=== PATIENT | female | born 1940 ===

== ENCOUNTER 2016-10-05 12:48 | Inpatient (IN) | payer MEDICARE ==
--- NOTE | 2016-10-05 13:42 | ED PDOC ---
HPI: General Adult Time Seen by Provider: 10/05/16 13:16 Chief Complaint (Nursing): Abnormal Labs Chief Complaint (Provider): dyspnea History Per: Patient (75 y/o female here for evaluation of abnormal bloodwork. Was noted to have hgb of 5 and sent to ED for evaluation. Patient denies any abdominal pain, hematochezia, melena, vomiting.) Past Medical History Reviewed: Historical Data, Nursing Documentation, Vital Signs Vital Signs: Last Vital Signs Temp 98.6 F 10/05/16 13:05 Pulse 88 10/05/16 13:05 Resp 20 10/05/16 13:05 BP 149/69 10/05/16 13:05 Pulse Ox 100 10/05/16 15:40 - Medical History PMH: Anxiety, Depression, HTN, Hypercholesterolemia - Family History Family History: States: No Known Family Hx - Home Medications Home Medications: Ambulatory Orders Medication Instructions Recorded Calcium Carbonate/Vitamin D3 1 tab PO BID 10/05/16 [Calcium 600-Vit D3 400 Tablet] Clonazepam [Clonazepam] 0.25 mg PO DAILY PRN 10/05/16 DiphenhydrAMINE [Benadryl] 25 mg PO Q6H PRN 10/05/16 Famotidine [Pepcid] 20 mg PO DAILY PRN 10/05/16 Fenofibrate [Tricor] 145 mg PO DAILY 10/05/16 Sertraline [Zoloft] 25 mg PO DAILY 10/05/16 Valsartan [Diovan] 80 mg PO DAILY 10/05/16 - Allergies Allergies/Adverse Reactions: Allergies Allergy/AdvReac Type Severity Reaction Status Date / Time No Known Allergies Allergy Verified 10/05/16 13:05 Review of Systems ROS Statement: Except As Marked, All Systems Reviewed And Found Negative Physical Exam - Reviewed Nursing Documentation Reviewed: Yes Vital Signs Reviewed: Yes - Physical Exam Appears: Positive for: Well, Non-toxic, No Acute Distress Head Exam: Positive for: ATRAUMATIC, NORMAL INSPECTION, NORMOCEPHALIC Skin: Positive for: Normal Color, Warm, Pallor Eye Exam: Positive for: EOMI, Normal appearance, PERRL ENT: Positive for: Normal ENT Inspection Neck: Positive for: Normal, Painless ROM Cardiovascular/Chest: Positive for: Regular Rate, Rhythm Respiratory: Positive for: CNT, Normal Breath Sounds Gastrointestinal/Abdominal: Positive for: Normal Exam, Bowel Sounds, Soft Back: Positive for: Normal Inspection Extremity: Positive for: Normal ROM Neurologic/Psych: Positive for: Alert, Oriented - Laboratory Results Result Diagrams: 10/05/16 13:30 10/05/16 13:30 - ECG ECG: Positive for: Viewed By Me ECG Rhythm: Positive for: Sinus Rhythm ( no ectopy; no acute changes rate of 90bpm) O2 Sat by Pulse Oximetry: 100 - Progress ED Course And Treament: D/W DR. Zenon SWANSON. WILL AWAIT PERIPHERAL SMEAR SPOKE WITH PATHOLOGIST AT 15:14. IMMATURE LYMPHOCYTES NOTED. CALL PLACED TO DR. Zenon SWANSON D/W DR. Zenon SWANSON. PATIENT TO ADMITTED AND RECEIVE [address] SWANSON TO REVIEW PERIPHERAL SMEAR AND DECIDE FURTHER INTERVENTION. CALL PLACED TO DR. TURK. Disposition - Clinical Impression Clinical Impression: Acute lymphocytic leukemia, Anemia - Patient ED Disposition Is Patient to be Admitted: Yes - Disposition Disposition Time: 15:40 Condition: FAIR - Pt Status Changed To: Hospital Disposition Of: Inpatient - Admit Certification Admit to Inpatient:: After my assessment, the patient will require hospitalization for at least two midnights. This is because of the severity of symptoms shown, intensity of services needed, and/or the medical risk in this patient being treated as an outpatient.
[2016-10-05 13:43] LABS: BASO # 0.2 K/uL (0.0-0.2); BASO % 0.4 % (0.0-2.0); EOS # 0.3 K/uL (0.0-0.7); EOS % 0.6 % (0.0-4.0); LYMPH # 32.5 K/uL (1.0-4.3); LYMPH % 79.3 % (20.0-40.0); MEAN CELL VOLUME 60.4 fl (81.0-99.0); MEAN CORPUSCULAR HEMOGLOBIN 15.7 pg (27.0-31.0); MEAN PLATELET VOLUME 8.8 fl (7.2-11.7); MONO % 2.5 % (0.0-10.0); NEUT # 7.1 K/uL (1.8-7.0); NEUT % 17.2 % (50.0-75.0); PLATELET COUNT 177 K/uL (130-400); RED CELL DISTRIBUTION WIDTH 21.9 % (11.5-14.5)
[2016-10-05 13:58] LABS: HEMOGLOBIN 4.5 g/dL (12.0-16.0)
[2016-10-05 13:59] LABS: ALB/GLOB RATIO 1.6 (1.0-2.1); ALBUMIN 4.4 g/dL (3.5-5.0); ALT/SGPT 30 U/L (9-52); AST/SGOT 35 U/L (14-36); BLOOD UREA NITROGEN 15 mg/dl (7-17); CALCIUM 10.3 mg/dL (8.4-10.2); GFR AFRICAN-AMERICAN 53; GFR NON-AFRICAN AMERICAN 44
[2016-10-05 14:03] LABS: PROTHROMBIN TIME 12.8 Seconds (9.8-13.1)
[2016-10-05 14:04] LABS: INR 1.1 (0.9-1.2); PARTIAL THROMBOPLASTIN TIME 19.2 Seconds (25.6-37.1)
[2016-10-05 14:51] LABS: LYMPHOCYTE 76 % (20-50); MONOCYTE 1 % (0-10); NEUTROPHIL 23 % (42-75); PLATELET ESTIMATE NORMAL (NORMAL); TOTAL CELLS COUNTED 100
[2016-10-05 14:52] LABS: ANISOCYTOSIS SLIGHT; HYPOCHROMIC SLIGHT; LARGE PLATELETS PRESENT; OVALOCYTES SLIGHT; POIKILOCYTOSIS SLIGHT; STOMATOCYTES SLIGHT
--- NOTE | 2016-10-05 15:11 | RAD ---
PROCEDURE: CHEST RADIOGRAPH, 1 VIEW HISTORY: sob COMPARISON: None available. FINDINGS: LUNGS: No evidence of focal infiltrate or consolidation in the lungs. PLEURA: No pneumothorax or pleural fluid seen. CARDIOVASCULAR: The cardiac silhouette is mildly enlarged. OSSEOUS STRUCTURES: No significant abnormalities. VISUALIZED UPPER ABDOMEN: Normal. OTHER FINDINGS: None. IMPRESSION: No evidence of acute pulmonary disease. Suboptimal portable study. If indicated further assessment by CT may be obtained.
[2016-10-05 16:23] LABS: IRON 22 ug/dL (37-170)
[2016-10-05 16:32] LABS: % IRON SATURATION 4 % (20-55); TOTAL IRON BINDING CAPACITY 501 ug/dL (250-450)
[2016-10-05 17:01] LABS: FERRITIN 3.3 ng/mL
[2016-10-05 22:28] LABS: FOLATE 7.6 ng/mL
--- NOTE | 2016-10-05 23:05 | CP.PCM.PN ---
Subjective - Date & Time of Evaluation Date of Evaluation: 10/05/16 Time of Evaluation: 23:04 - Subjective Subjective: This is a 75 yrs old female who was sent to the ER with c/o weakness, dizziness and a hgb of 4.5gms. She also had a WBC ount of 41.0 platelets of 177K,, and mcv of 60 . The differential showed a neutrophils 23%, lymph 79%, mono2.5% Peripheral smear was examined by pathologist and by me. there is a definite prominence of lymphocytes, some atypical lymphocytes, and there were also some blasts less than 8%. She gives no h/o ever having anemia or high blood count. She claims she feels well, so she does not visit her primary physician too often , Her last blood count was 2 months ago and she was told that it was normal. There is no h/o bleeding from any site. She does not give a h/o any chronic illness. She does not smoke and soes not drink. Objective - Vital Signs/Intake and Output Vital Signs (last 24 hours): Temp Pulse Resp BP Pulse Ox 98.3 F 86 20 136/61 99 10/05/16 20:00 10/05/16 20:00 10/05/16 20:00 10/05/16 20:00 10/05/16 20:00 - Medications Medications: Current Medications Calcium/Vitamin D (Oyster Shell Calcium/Vitamin D 500 Mg-200 Iu) 1 tab PO BID [facility] Clonazepam (Klonopin) 0.25 mg PO DAILY PRN PRN Reason: Anxiety Diphenhydramine HCl (Benadryl) 25 mg PO Q6H PRN PRN Reason: Itching / Pruritus Famotidine (Pepcid) 20 mg PO DAILY [facility] Fenofibrate (Tricor) 145 mg PO DAILY [facility] Sertraline HCl (Zoloft) 25 mg PO DAILY [facility] Valsartan (Diovan) 80 mg PO DAILY [facility]ENITA - Labs Labs: PT 12.8 Seconds (9.8-13.1) 10/05/16 13:30 INR 1.1 (0.9-1.2) 10/05/16 13:30 APTT 19.2 Seconds (25.6-37.1) L 10/05/16 13:30 - Additional Findings Additional findings: Physical exam; Alert, well oriented, in no acute distress neck; Supple,no adenopathy Chest; Clear, no rales or rhonchi Heart; Slightly tachycardic, no murmur Abd; Soft, no mass,no h/s megaly. Assessment and Plan - Assessment and Plan (Free Text) Assessment: IMpression; Lymphocytosis with some abnormal cells in the peripheral smear.? acute leukemioa, ? lymphima. Plan: Plan; Will first stabilise her by transfusing packed cells. She also has severe iron deficiency anemia, but no evidence of bleeding. Will order a CT of the chest, abdomen and pelvis to r/o adenopathy Will do a bone marrow on Saturday since there is nobody here to send the specimen for flow cytometry until then
[2016-10-06 06:12] LABS: BASO # 0.2 K/uL (0.0-0.2); BASO % 0.5 % (0.0-2.0); EOS # 0.3 K/uL (0.0-0.7); EOS % 0.7 % (0.0-4.0); HEMOGLOBIN 7.2 g/dL (12.0-16.0); LYMPH # 30.6 K/uL (1.0-4.3); LYMPH % 77.8 % (20.0-40.0); MEAN CELL VOLUME 70.8 fl (81.0-99.0); MEAN CORPUSCULAR HEMOGLOBIN 20.6 pg (27.0-31.0); MEAN CORPUSCULAR HGB CONC 29.2 g/dL (33.0-37.0); MEAN PLATELET VOLUME 10.3 fl (7.2-11.7); MONO % 2.5 % (0.0-10.0); NEUT # 7.3 K/uL (1.8-7.0); NEUT % 18.5 % (50.0-75.0); RBC 3.51 Mil/uL (3.80-5.20); RED CELL DISTRIBUTION WIDTH 30.6 % (11.5-14.5)
[2016-10-06 06:35] LABS: WHITE BLOOD COUNT 39.4 K/uL (4.8-10.8)
[2016-10-06] MEDS: Calcium-Vit D 500 mg-200 Units Tab UD PO SCH ×2 (12:56→17:23)
--- NOTE | 2016-10-06 15:00 | HP ---
CHIEF COMPLAINT: Abnormal labs. HISTORY OF PRESENT ILLNESS: This is a 75-year-old female who was sent in by her primary care physician for abnormal labs with hemoglobin of 5 and the patient was admitted for further management. REVIEW OF SYSTEMS: Positive for generalized malaise, weakness, fatigue, tired. Review of system otherwise is negative for headache, dizziness, syncope, loss of consciousness, chest pain, shortness of breath, nausea, vomiting, diarrhea, constipation, any new joint or extremity pain or any excessive bleeding. Review of systems of all other organ systems is unremarkable. PAST MEDICAL HISTORY: Significant for hypertension, elevated cholesterol, obesity, depression and anxiety. PAST SURGICAL HISTORY: Unremarkable. PERSONAL HISTORY: The patient is currently a nonsmoker, nondrinker, no substance abuse. MEDICATIONS: The patient is on clonazepam, Benadryl, famotidine, calcium carbonate, fenofibrate, Zoloft and Diovan. ALLERGIES: The patient is not allergic to any medication. FAMILY HISTORY: Noncontributory. PHYSICAL EXAMINATION: GENERAL: Well-built, well-nourished, obese female in no acute distress. VITAL SIGNS: Temperature 98.7, pulse 87, respirations 18, blood pressure 119/ 68 without any orthostatic changes. HEENT: Pupils reacting to light. No JVD, no thyromegaly, no lymphadenopathy, no nystagmus. Normocephalic, atraumatic skull. The patient's conjunctiva is pale. HEART: S1, S2 normal, regular. No significant murmur, gallop or rub is heard. LUNGS: Shows good bilateral air entry. No rales or rhonchi. ABDOMEN: Soft, nontender, no organomegaly, no fluid. Bowel sounds are plus. EXTREMITIES: No edema, no calf swelling, no tenderness, no acute ischemia. CENTRAL NERVOUS SYSTEM: The patient is alert, awake, oriented x 3. There is no sign of any acute gross focal motor or sensory neurological deficit. DIAGNOSTIC DATA: Available diagnostic data reviewed. WBC 39.4, hemoglobin 7.2 , hematocrit 24.8, platelets 138. Reticulocyte count is 3.4. Iron level 22, TIBC is ____, saturation is 4%. Lactic dehydrogenase is 749, vitamin B12 level is 326 and folic acid is 7.6. Hematology/oncology intervention noted and appreciated. Chest x-ray is clear. ADMITTING IMPRESSION: Severe anemia, questionable leukemia, hypertension, elevated cholesterol, obesity, anxiety, depression. PLAN: As ordered. Case and plan discussed with patient. Niranjan Mari MD cc: [id number] TT: 10/06/2016 15:00:12 jn MTDD
--- NOTE | 2016-10-06 18:30 | CT ---
PROCEDURE: CT Chest, Abdomen and Pelvis without intravenous contrast HISTORY: Severe anemia with leukocytosis. COMPARISON: Comparison made with CT scan abdomen and pelvis 09/11/2013 TECHNIQUE: Radiation dose: Total exam DLP = 1315.35 mGy-cm. This CT exam was performed using one or more of the following dose reduction techniques: Automated exposure control, adjustment of the mA and/or kV according to patient size, and/or use of iterative reconstruction technique. FINDINGS: CT CHEST WITHOUT CONTRAST: LUNGS: Mild atelectasis/ scarring changes seen in the left and to a lesser degree right lung bases. No evidence of pneumothorax. There appears to be some mild irregular scarring changes and/or chronic atelectasis in the left lingular region. Small approximately 3.9 mm subpleural nodule left lung base along the posterolateral convexity (axial image number 62). . Second pleural-based nodule measuring 6 mm along the posterolateral convexity slightly more inferiorly located on axial image number 71 Another approximately 6.75 mm elliptical shaped nodule right lower lung base along the posterolateral sulcus in axial 91. Follow-up CT scan in 2-3 months recommended given the findings of adenopathy and pleural nodules. . MEDIASTINUM: Heart is enlarged. No significant pericardial effusion. The at ascending thoracic aorta measures approximately 2.9 cm and descending thoracic aorta measures approximately 2.4 cm. Pulmonary trunk measures approximately 2.4 cm. Central airways are midline and patent with no evidence of endoluminal lesions. Moderately large hiatal hernia. LYMPH NODES: There are multiple small to enlarged supraclavicular lymph nodes. Multiple small to medium-sized mediastinal lymph nodes are present. The largest mediastinal lymph node is located in the left superior para-aortic region measuring approximately 3.3 cm though this could be a cluster of smaller adjacent lymph nodes. Multiple small to enlarged bilateral axillary lymph nodes. In addition, there are multiple small to enlarged mediastinal lymph nodes The largest left axillary lymph node measures approximately 2 point at 7 cm and the largest right axillary lymph node measures approximately 2.1 cm. . Evaluation for hilar adenopathy is somewhat limited due to the lack of circulating intravenous contrast material. . Collectively these findings are of uncertain etiology however malignancy such as lymphoma/ leukemia should be excluded. Are rule out recent infection. PLEURA: No evidence of pleural effusion or pneumothorax. BONES: There is a rounded lucency within the right posterior aspect T9 segment of uncertain etiology though likely represents a hemangioma and was present on prior study. There are several small low-attenuation foci seen within the T4, T5, T6 and possibly T7 and C7 segments of uncertain etiology. The possibility of infiltrating marrow disease process -malignancy must be excluded. Clinical correlation recommended. OTHER FINDINGS: None. CT ABDOMEN AND PELVIS: LIVER: Liver exhibits normal size measuring approximately 17 cm in CC dimension. Re- demonstrated is a very tiny sub cm low-attenuation focus right lobe liver seen on axial image number 43 that may represent fat with Hounsfield units near -50. GALLBLADDER AND BILE DUCTS: Multiple intraluminal gallbladder calculi are present. PANCREAS: Visualized portions of the pancreas remain slightly atrophic and fatty replaced. No definitive pancreatic mass or collection. SPLEEN: Spleen is markedly enlarged measuring approximately 16 cm in greatest dimension. No definitive masses or collections are identified within the splenic parenchyma on this noncontrast study. ADRENALS: Right adrenal gland appears unremarkable. Questionable mild hypertrophy left adrenal gland. KIDNEYS AND URETERS: Left kidney remains atrophic in appearance with elliptical shaped calcification in the anterior aspect mid to lower pole measuring approximately 9.5 mm. . There is also a small approximately 9.7 mm slightly exophytic focus along the posterolateral margin left renal cortex which could represent a hyperdense cyst however the possibility of a solid lesion cannot be excluded. This focus has not significantly changed so far as can be seen when compared with the prior study VASCULATURE: No evidence of abdominal aortic aneurysm. BOWEL: Evaluation of the bowel is limited due to the lack of oral contrast material as mentioned above, there is moderate size hiatal hernia. Wall thickening could be due to underdistention. Gastritis or other intrinsic/invasive wall lesion not excluded. Visualized loops of small bowel exhibit normal contour and caliber. No evidence of acute mechanical small bowel obstruction. Stool and air seen throughout the colon. No evidence of definitive mural wall thickening. Apparent anastomosis in the sigmoid region. APPENDIX: Appendix is not seen with certainty however no obvious inflammatory changes right lower quadrant of the abdomen. PERITONEUM: No free or loculated fluid collections. No evidence of free intraperitoneal air. LYMPH NODES: Multiple small to medium size abdominal as well as pelvic and retroperitoneal lymph nodes are present. BLADDER: Urinary bladder is incompletely distended which may account for slight thick-walled appearance. Possibility of a cystitis not excluded. REPRODUCTIVE: Uterus appears grossly unremarkable. BONES: No acute fracture. . Transitional vertebral body. Lucent lesion in the L3 segment most likely represents hemangioma unchanged from prior study. 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 OTHER FINDINGS: IMPRESSION: There are multiple on small to enlarged supraclavicular mediastinal and axillary lymph nodes. Multiple small to medium-sized abdominal retroperitoneal and pelvic lymph nodes also present. Markedly enlarged spleen. Rule out malignancy such as lymphoma/ leukemia. Small nodules of both lung bases on as above. Followup CT scan in 3 months recommended. Tiny low-attenuation focus within right lobe liver which exhibits Hounsfield units near -50 suggesting fat ; the lesion appears unchanged from prior study. Cholelithiasis. Atrophic left kidney with nonobstructing calcification as above. Questionable small hyperdense cyst or solid less exophytic lesion posterolateral aspect mid-lower pole left kidney unchanged. The multiple low-attenuation foci seen scattered throughout several thoracic segments. The lytic lesions at to be excluded. Probable hemangiomas within the L3 and T9 segments. See above discussion for additional findings and details.
[2016-10-07 05:40] LABS: BASO # 0.2 K/uL (0.0-0.2); BASO % 0.5 % (0.0-2.0); EOS # 0.3 K/uL (0.0-0.7); EOS % 0.9 % (0.0-4.0); HEMOGLOBIN 7.7 g/dL (12.0-16.0); LYMPH # 26.1 K/uL (1.0-4.3); LYMPH % 78.8 % (20.0-40.0); MEAN CELL VOLUME 70.2 fl (81.0-99.0); MEAN CORPUSCULAR HEMOGLOBIN 20.6 pg (27.0-31.0); MEAN CORPUSCULAR HGB CONC 29.3 g/dL (33.0-37.0); MEAN PLATELET VOLUME 9.3 fl (7.2-11.7); MONO # 0.8 K/uL (0.0-0.8); MONO % 2.5 % (0.0-10.0); NEUT # 5.7 K/uL (1.8-7.0); NEUT % 17.3 % (50.0-75.0); PLATELET COUNT 133 K/uL (130-400); RBC 3.72 Mil/uL (3.80-5.20); RED CELL DISTRIBUTION WIDTH 30.6 % (11.5-14.5); WHITE BLOOD COUNT 33.1 K/uL (4.8-10.8)
[2016-10-07 05:56] LABS: ALB/GLOB RATIO 1.4 (1.0-2.1); ALBUMIN 3.6 g/dL (3.5-5.0); CALCIUM 9.7 mg/dL (8.4-10.2)
[2016-10-07] MEDS: Calcium-Vit D 500 mg-200 Units Tab UD PO SCH ×2 (08:55→16:30)
--- NOTE | 2016-10-07 09:56 | CP.PCM.PN ---
Subjective - Date & Time of Evaluation Date of Evaluation: 10/07/16 Time of Evaluation: 09:52 - Subjective Subjective: Pt is feeling much better, and has no other symptoms. Her Hgb today is 7.7 with Wbc 33, and plateletd 133K. The CT scan done yesterday shows a large hiatal hernia with thickening of the lower end of the esophagus, and adenopathy in multiple sites with a large spleen. This foes indicate that this is either a lymphoma(more likely) or a leukemia, Pt has nodes in the cervical area, supraclavicular area, and right axilla Objective - Vital Signs/Intake and Output Vital Signs (last 24 hours): Temp Pulse Resp BP Pulse Ox 98 F 83 18 130/69 95 10/07/16 07:56 10/07/16 07:56 10/07/16 07:56 10/07/16 07:56 10/07/16 07:56 - Medications Medications: Current Medications Calcium/Vitamin D (Oyster Shell Calcium/Vitamin D 500 Mg-200 Iu) 1 tab PO BID [facility] Last Admin: 10/07/16 08:55 Dose: 1 tab Clonazepam (Klonopin) 0.25 mg PO DAILY PRN PRN Reason: Anxiety Diphenhydramine HCl (Benadryl) 25 mg PO Q6H PRN PRN Reason: Itching / Pruritus Famotidine (Pepcid) 20 mg PO DAILY [facility] Last Admin: 10/07/16 08:55 Dose: 20 mg Fenofibrate (Tricor) 145 mg PO DAILY [facility] Last Admin: 10/07/16 08:55 Dose: 145 mg Sertraline HCl (Zoloft) 25 mg PO DAILY [facility] Last Admin: 10/07/16 08:56 Dose: 25 mg Valsartan (Diovan) 80 mg PO DAILY [facility] Last Admin: 10/07/16 08:54 Dose: 80 mg - Labs Labs: 10/07/16 05:00 10/07/16 05:00 PT 12.8 Seconds (9.8-13.1) 10/05/16 13:30 INR 1.1 (0.9-1.2) 10/05/16 13:30 APTT 19.2 Seconds (25.6-37.1) L 10/05/16 13:30 Assessment and Plan - Assessment and Plan (Free Text) Plan: Plan' Will transfuse 2 more units of packed cells today Suggest surgical consult for a incisional biopsy of a lymph node
--- NOTE | 2016-10-07 14:03 | CP.PCM.CON ---
<Georgi Mcdermott - Last Filed: 10/07/16 14:04> History of Present Illness - History of Present Illness History of Present Illness: Surgery: Dr. Villagomez CC: weakness/fatigue HPI: 75F w. HTN and anxiety presents to ED w. abnormal blood work. Hgb 4.5 and wbc 4.1. Pt states that for the last 2 months she has been experiencing weakness and fatigue. She denies night sweats or weight loss. She states that about 1 month ago she was having SOB and went to her PMD, Dr. Delgado. Per pt, lab work was all WNL at this time. Further more pt denies TURNER/blurred vision, no F/C, no CP/palpitations, no cough/hemoptysis, no nose bleeds, no N/V/ D, no blood in stool, no vaginal bleeding, no hematuria/dysuria. She does report having diffuse pruritus. CT was done and showed diffuse lymphadenopathy as well as an elarged spleen PMH: HTN, anxiety PSH: cataracts Meds: MAR reviewed NKDA Social: No ETOH/tobacco/drugs Fhx: No fhx of CA Review of Systems - Review of Systems All systems: reviewed and no additional remarkable complaints except (HPI) Past Patient History - Past Medical History & Family History Past Medical History?: Yes - Past Social History Smoking Status: Never Smoked - CARDIAC Hx Cardiac Disorders: Yes Hx Hypercholesterolemia: Yes Hx Hypertension: Yes - PULMONARY Hx Respiratory Disorders: No - NEUROLOGICAL Hx Neurological Disorder: No - HEENT Hx HEENT Problems: Yes Hx Cataracts: Yes - RENAL Hx Chronic Kidney Disease: No - ENDOCRINE/METABOLIC Hx Endocrine Disorders: No - HEMATOLOGICAL/ONCOLOGICAL Hx Blood Disorders: No - INTEGUMENTARY Hx Dermatological Problems: No - MUSCULOSKELETAL/RHEUMATOLOGICAL Hx Musculoskeletal Disorders: No Hx Falls: No - GASTROINTESTINAL Hx Gastrointestinal Disorders: No - GENITOURINARY/GYNECOLOGICAL Hx Genitourinary Disorders: No - PSYCHIATRIC Hx Psychophysiologic Disorder: Yes Hx Anxiety: Yes Hx Depression: Yes Hx Substance Use: No - SURGICAL HISTORY Hx Surgeries: Yes Hx Cataract Extraction: Yes Other/Comment: Intestinal Sx (fistula) - ANESTHESIA Hx Anesthesia: Yes Hx Anesthesia Reactions: No Hx Malignant Hyperthermia: No Meds Allergies/Adverse Reactions: Allergies Allergy/AdvReac Type Severity Reaction Status Date / Time No Known Allergies Allergy Verified 10/05/16 13:05 - Medications Medications: Current Medications Calcium/Vitamin D (Oyster Shell Calcium/Vitamin D 500 Mg-200 Iu) 1 tab PO BID [facility] Last Admin: 10/07/16 08:55 Dose: 1 tab Clonazepam (Klonopin) 0.25 mg PO DAILY PRN PRN Reason: Anxiety Diphenhydramine HCl (Benadryl) 25 mg PO Q6H PRN PRN Reason: Itching / Pruritus Famotidine (Pepcid) 20 mg PO DAILY [facility] Last Admin: 10/07/16 08:55 Dose: 20 mg Fenofibrate (Tricor) 145 mg PO DAILY [facility] Last Admin: 10/07/16 08:55 Dose: 145 mg Sertraline HCl (Zoloft) 25 mg PO DAILY [facility] Last Admin: 10/07/16 08:56 Dose: 25 mg Valsartan (Diovan) 80 mg PO DAILY [facility] Last Admin: 10/07/16 08:54 Dose: 80 mg Physical Exam - Constitutional Appears: Non-toxic, No Acute Distress - Head Exam Head Exam: ATRAUMATIC, NORMOCEPHALIC - Eye Exam Eye Exam: EOMI - ENT Exam ENT Exam: Mucous Membranes Moist, Normal External Ear Exam - Neck Exam Neck exam: Positive for: Full Rom. Negative for: Lymphadenopathy, Tenderness - Respiratory Exam Respiratory Exam: NORMAL BREATHING PATTERN. absent: Accessory Muscle Use, Respiratory Distress - GI/Abdominal Exam GI & Abdominal Exam: Soft. absent: Tenderness - Extremities Exam Additional comments: no axillary lymphadenopathy appreciated - Neurological Exam Neurological exam: Alert, Oriented x3 - Psychiatric Exam Psychiatric exam: Normal Affect, Normal Mood Results - Vital Signs Recent Vital Signs: Last Vital Signs Temp 97.6 F 10/07/16 12:39 Pulse 70 10/07/16 12:39 Resp 16 10/07/16 12:39 BP 117/69 10/07/16 12:39 Pulse Ox 97 10/07/16 12:39 - Labs Result Diagrams: 10/07/16 05:00 10/07/16 05:00 Labs: Laboratory Results - last 24 hr 10/06/16 10/07/16 10/07/16 11:43 05:00 05:00 WBC 33.1 H RBC 3.72 L Hgb 7.7 L Hct 26.1 L MCV 70.2 L MCH 20.6 L MCHC 29.3 L RDW 30.6 H Plt Count 133 MPV 9.3 Neut % (Auto) 17.3 L Lymph % (Auto) 78.8 H Bell % (Auto) 2.5 Eos % (Auto) 0.9 Baso % (Auto) 0.5 Neut # 5.7 Lymph # 26.1 H Bell # 0.8 Eos # 0.3 Baso # 0.2 Sodium 143 Potassium 4.0 Chloride 110 H Carbon Dioxide 23 Anion Gap 14 BUN 13 Creatinine 1.1 Est GFR ( Amer) 59 Est GFR (Non-Af Amer) 48 Random Glucose 100 Calcium 9.7 Total Bilirubin 0.9 AST 26 ALT 27 Alkaline Phosphatase 80 Total Protein 6.1 L Albumin 3.6 Globulin 2.5 Albumin/Globulin Ratio 1.4 Homocysteine 17.8 H - Imaging and Cardiology CT scan - abdomen Status: Image reviewed by me, Report reviewed by me Assessment & Plan - Assessment and Plan (Free Text) Assessment: 75F r/o lymphoma/leukemia -axillary lymph node bx tomorrow 2pm, will try to coordinate w. Dr. Schulz to do bone marrow bx at same time -NPO at midnight -d/w attending Sharron PGY2 <Timmy Villagomez - Last Filed: 10/09/16 10:54> Meds - Medications Medications: Current Medications Calcium/Vitamin D (Oyster Shell Calcium/Vitamin D 500 Mg-200 Iu) 1 tab PO BID [facility] Last Admin: 10/09/16 08:50 Dose: 1 tab Clonazepam (Klonopin) 0.25 mg PO DAILY PRN PRN Reason: Anxiety Diphenhydramine HCl (Benadryl) 25 mg PO Q6H PRN PRN Reason: Itching / Pruritus Famotidine (Pepcid) 20 mg PO DAILY [facility] Last Admin: 10/09/16 08:51 Dose: 20 mg Fenofibrate (Tricor) 145 mg PO DAILY [facility] Last Admin: 10/09/16 08:51 Dose: 145 mg Sertraline HCl (Zoloft) 25 mg PO DAILY [facility] Last Admin: 10/09/16 08:51 Dose: 25 mg Valsartan (Diovan) 80 mg PO DAILY [facility] Last Admin: 10/09/16 08:50 Dose: 80 mg Results - Vital Signs Recent Vital Signs: Last Vital Signs Temp 98.2 F 10/09/16 07:54 Pulse 74 10/09/16 09:00 Resp 20 10/09/16 07:54 BP 120/72 10/09/16 07:54 Pulse Ox 95 10/09/16 07:54 - Labs Result Diagrams: 10/09/16 05:30 10/09/16 05:30 Labs: Laboratory Results - last 24 hr 10/09/16 10/09/16 05:30 05:30 WBC 26.5 H RBC 4.67 Hgb 10.7 L Hct 34.5 MCV 73.8 L MCH 22.9 L MCHC 31.0 L RDW 32.0 H Plt Count 125 L D Sodium 140 Potassium 4.1 Chloride 106 Carbon Dioxide 24 Anion Gap 14 BUN 18 H Creatinine 1.1 Est GFR ( Amer) 59 Est GFR (Non-Af Amer) 48 Random Glucose 100 Calcium 10.7 H Total Bilirubin 1.5 H AST 38 H ALT 29 Alkaline Phosphatase 88 Total Protein 6.7 Albumin 4.1 Globulin 2.6 Albumin/Globulin Ratio 1.6 Attending/Attestation - Attestation I have personally seen and examined this patient.: Yes I have fully participated in the care of the patient.: Yes I have reviewed all pertinent clinical information: Yes Notes (Text): 10/09/16 10:52 Pt was seen and examined at bedside on 10/08/16 Agree with above note and assessment Pt with Cervical and Axillary Lymphadenopathy. Pt would need Lymph node biopsy Bone marrow biopsy as per Oncology recommendation. c.w current mx Plan d.w pt in detail Risk and benefit explained in detail.
[2016-10-07 18:08] LABS: TOTAL CELLS COUNTED 100
[2016-10-07 18:09] LABS: ANISOCYTOSIS SLIGHT; EOSINOPHIL 1 % (0-7); LYMPHOCYTE 65 % (20-50); MONOCYTE 5 % (0-10); NEUTROPHIL 24 % (42-75); PLATELET ESTIMATE SLIGHTLY DECREASED (NORMAL); REACTIVE LYMPHOCYTES 4 % (0-0)
[2016-10-07 18:10] LABS: HYPOCHROMIC SLIGHT; OVALOCYTES SLIGHT
[2016-10-08 05:58] LABS: HEMOGLOBIN 10.4 g/dL (12.0-16.0); MEAN CELL VOLUME 73.8 fl (81.0-99.0); MEAN CORPUSCULAR HEMOGLOBIN 22.4 pg (27.0-31.0); MEAN CORPUSCULAR HGB CONC 30.4 g/dL (33.0-37.0); RBC 4.63 Mil/uL (3.80-5.20); RED CELL DISTRIBUTION WIDTH 31.7 % (11.5-14.5); WHITE BLOOD COUNT 27.9 K/uL (4.8-10.8)
[2016-10-08 06:40] LABS: ALB/GLOB RATIO 1.4 (1.0-2.1); ALBUMIN 3.9 g/dL (3.5-5.0); CALCIUM 10.2 mg/dL (8.4-10.2)
--- NOTE | 2016-10-08 08:18 | PN ---
DATE: 10/07/2016 The patient is seen and examined. Interim events noted. Consults noted and appreciated. Hematology intervention noted and appreciated. The patient remains in progressive care unit on telemetry [facility]. The patient is sleepy, arousable, denies any specific complaint. No chest pain or shortness of breath. Complains of generalized weakness. PHYSICAL EXAMINATION: GENERAL: The patient is in no acute distress. VITAL SIGNS: Stable. HEART: S1, S2 normal regular. LUNGS: Good bilateral air exchange. ABDOMEN: Soft, nontender. EXTREMITIES: No edema, no calf swelling, no tenderness, no acute ischemia. CENTRAL NERVOUS SYSTEM: Essentially unchanged. DIAGNOSTIC DATA: Available diagnostic data reviewed. Telemetry monitoring does not show any signifi cant arrhythmias ____. Overall, the patient is medically stable. CAT scan reveals nonspecific finding. PLAN: As ordered. Niranjan Mari MD cc: [id number] TT: 10/07/2016 10:32:29 Confirmation # [id number] Dictation # [id number] jn
[2016-10-08] MEDS: Calcium-Vit D 500 mg-200 Units Tab UD PO SCH ×2 (09:48→17:22)
[2016-10-08] MEDS ORDERED: Lidocaine 2% Inj (20ml) SC ONE (09:51)
--- NOTE | 2016-10-08 11:35 | CP.PCM.PN ---
Subjective - Date & Time of Evaluation Date of Evaluation: 10/08/16 Time of Evaluation: 11:34 - Subjective Subjective: Pt is feeling much better today. Post transfusion her hgb is up to 7.8gms.. I attempted to do a marrow, but i think the marrow is so packed that i was not able to get a specimen. Will do flow cytometry on the blood. She is having a lymph node biopsy later today. Objective - Vital Signs/Intake and Output Vital Signs (last 24 hours): Temp Pulse Resp BP Pulse Ox 98.6 F 84 18 135/84 95 10/08/16 07:57 10/08/16 07:57 10/08/16 07:57 10/08/16 07:57 10/08/16 07:57 - Medications Medications: Current Medications Calcium/Vitamin D (Oyster Shell Calcium/Vitamin D 500 Mg-200 Iu) 1 tab PO BID [facility] Last Admin: 10/08/16 09:48 Dose: Not Given Clonazepam (Klonopin) 0.25 mg PO DAILY PRN PRN Reason: Anxiety Diphenhydramine HCl (Benadryl) 25 mg PO Q6H PRN PRN Reason: Itching / Pruritus Famotidine (Pepcid) 20 mg PO DAILY [facility] Last Admin: 10/08/16 09:48 Dose: Not Given Fenofibrate (Tricor) 145 mg PO DAILY [facility] Last Admin: 10/08/16 09:50 Dose: Not Given Sertraline HCl (Zoloft) 25 mg PO DAILY [facility] Last Admin: 10/08/16 09:50 Dose: Not Given Valsartan (Diovan) 80 mg PO DAILY [facility] Last Admin: 10/08/16 10:25 Dose: Not Given - Labs Labs: 10/08/16 05:45 10/08/16 05:45 PT 12.8 Seconds (9.8-13.1) 10/05/16 13:30 INR 1.1 (0.9-1.2) 10/05/16 13:30 APTT 19.2 Seconds (25.6-37.1) L 10/05/16 13:30
[2016-10-08] MEDS ORDERED: Bupivacaine 0.5% Inj(30mL) ONE (14:14)
[2016-10-08] MEDS ORDERED: cefTRIAXone (Rocephin) 1 gm Inj ONE (14:14)
[2016-10-08] MEDS ORDERED: Lidocaine 2% Inj (20ml) ONE (14:15)
--- NOTE | 2016-10-08 15:04 | CP.PCM.PN ---
<Jaja Yanes - Last Filed: 10/08/16 15:48> Subjective - Date & Time of Evaluation Date of Evaluation: 10/08/16 Time of Evaluation: 07:20 - Subjective Subjective: General Surgery progress note Pt. s/e at bedside this AM. NAEO. Patient denies fevers, chills, chest pain, SOB , abdominal pain, or any other symptoms. A bedside bone marrow biopsy was attempted today by oncology but was unsuccessful, patient tolerated well. Objective - Vital Signs/Intake and Output Vital Signs (last 24 hours): Temp Pulse Resp BP Pulse Ox 97.6 F 80 18 145/81 96 10/08/16 12:04 10/08/16 12:04 10/08/16 12:04 10/08/16 12:04 10/08/16 12:04 - Medications Medications: Current Medications Calcium/Vitamin D (Oyster Shell Calcium/Vitamin D 500 Mg-200 Iu) 1 tab PO BID [facility] Last Admin: 10/08/16 09:48 Dose: Not Given Clonazepam (Klonopin) 0.25 mg PO DAILY PRN PRN Reason: Anxiety Diphenhydramine HCl (Benadryl) 25 mg PO Q6H PRN PRN Reason: Itching / Pruritus Famotidine (Pepcid) 20 mg PO DAILY [facility] Last Admin: 10/08/16 09:48 Dose: Not Given Fenofibrate (Tricor) 145 mg PO DAILY [facility] Last Admin: 10/08/16 09:50 Dose: Not Given Sertraline HCl (Zoloft) 25 mg PO DAILY [facility] Last Admin: 10/08/16 09:50 Dose: Not Given Valsartan (Diovan) 80 mg PO DAILY [facility] Last Admin: 10/08/16 10:25 Dose: Not Given - Labs Labs: 10/08/16 05:45 10/08/16 05:45 PT 12.8 Seconds (9.8-13.1) 10/05/16 13:30 INR 1.1 (0.9-1.2) 10/05/16 13:30 APTT 19.2 Seconds (25.6-37.1) L 10/05/16 13:30 - Constitutional Appears: Well, Non-toxic, No Acute Distress - Head Exam Head Exam: ATRAUMATIC, NORMOCEPHALIC - Eye Exam Eye Exam: Normal appearance. absent: Conjunctival injection, Scleral icterus - ENT Exam ENT Exam: Mucous Membranes Moist, Normal Oropharynx - Neck Exam Neck Exam: Lymphadenopathy (palpable non-tender cervical lymph nodes) - Respiratory Exam Respiratory Exam: NORMAL BREATHING PATTERN. absent: Accessory Muscle Use, Respiratory Distress - Cardiovascular Exam Cardiovascular Exam: RRR - GI/Abdominal Exam GI & Abdominal Exam: Soft. absent: Distended, Tenderness - Extremities Exam Extremities Exam: absent: Calf Tenderness, Pedal Edema, Tenderness Additional comments: palpable non-tender enlarged lymph nodes in the groin and axilla BL - Neurological Exam Neurological Exam: Alert, Awake, Oriented x3 - Psychiatric Exam Psychiatric exam: Normal Affect, Normal Mood - Skin Skin Exam: Dry, Intact, Normal Color, Warm Assessment and Plan - Assessment and Plan (Free Text) Assessment: 75F with diffuse lymphadenopathy r/o lymphoma/leukemia -Lymph node bx possibly Saturday. Otherwise patient could be discharged with plans to follow up with Dr. Villagomez in his clinic for further planning of biopsy -May resume diet -Continue current management per primary team Seen and discussed with Dr. Dahlia Yanes, PGY1 <Timmy Villagomez - Last Filed: 10/09/16 10:58> Objective - Vital Signs/Intake and Output Vital Signs (last 24 hours): Temp Pulse Resp BP Pulse Ox 98.2 F 74 20 120/72 95 10/09/16 07:54 10/09/16 09:00 10/09/16 07:54 10/09/16 07:54 10/09/16 07:54 Intake and Output: 10/09/16 10/09/16 06:59 18:59 Intake Total 200 Balance 200 - Medications Medications: Current Medications Calcium/Vitamin D (Oyster Shell Calcium/Vitamin D 500 Mg-200 Iu) 1 tab PO BID [facility] Last Admin: 10/09/16 08:50 Dose: 1 tab Clonazepam (Klonopin) 0.25 mg PO DAILY PRN PRN Reason: Anxiety Diphenhydramine HCl (Benadryl) 25 mg PO Q6H PRN PRN Reason: Itching / Pruritus Famotidine (Pepcid) 20 mg PO DAILY [facility] Last Admin: 10/09/16 08:51 Dose: 20 mg Fenofibrate (Tricor) 145 mg PO DAILY [facility] Last Admin: 10/09/16 08:51 Dose: 145 mg Sertraline HCl (Zoloft) 25 mg PO DAILY [facility] Last Admin: 10/09/16 08:51 Dose: 25 mg Valsartan (Diovan) 80 mg PO DAILY [facility] Last Admin: 10/09/16 08:50 Dose: 80 mg - Labs Labs: 10/09/16 05:30 10/09/16 05:30 PT 12.8 Seconds (9.8-13.1) 10/05/16 13:30 INR 1.1 (0.9-1.2) 10/05/16 13:30 APTT 19.2 Seconds (25.6-37.1) L 10/05/16 13:30 Attending/Attestation - Attestation I have personally seen and examined this patient.: Yes I have fully participated in the care of the patient.: Yes I have reviewed all pertinent clinical information, including history, physical exam and plan: Yes Notes (Text): 10/09/16 10:58 Pt was seen and examined at bedside on 10/08/16 Agree with above note and assessment Pt with Cervical and Axillary Lymphadenopathy. Pt would need Lymph node biopsy Bone marrow biopsy as per Oncology recommendation. c.w current mx Plan d.w pt in detail Risk and benefit explained in detail.
--- NOTE | 2016-10-08 17:54 | PN ---
DATE: 10/08/2016 The patient seen and examined. Interim events noted. Consults noted, appreciated. Hematology/oncology consultation and intervention noted and appreciated. The patient remains in progressive care unit on telemetry monitoring. The patient feels okay. No specific complaint, no chest pain or shortness of breath. PHYSICAL EXAMINATION: GENERAL: The patient is in no acute distress. VITAL SIGNS: Stable. Temperature 98.6, pulse 84, respiration 18, blood pressure 135/84. HEART: S1, S2 normal, regular. LUNGS: Good bilateral air entry. ABDOMEN: Soft, nontender. EXTREMITIES: No edema, no calf swelling, no tenderness, no acute ischemia. CENTRAL NERVOUS SYSTEM: Essentially unchanged. DIAGNOSTIC DATA: Available diagnostic data reviewed. Telemetry monitoring does not reveal significant arrhythmias. WBC 27.9, hemoglobin 10.4, hematocrit 34.1, platelet 154. Sodium 142, potassium 4.2, chloride 108, bicarb 23, BUN 13 , creatinine . SMA-12 is unremarkable. Overall, the patient is medically stable and improving. The patient refuses blood transfusion. The patient is for lymph node biopsy and possible bone marrow biopsy today. Case and plan discussed with patient. Niranjan Mari MD cc: [id number] TT: 10/08/2016 17:54:03 Confirmation # [id number] Dictation # [id number] PIPER
--- NOTE | 2016-10-09 06:34 | CP.PCM.PN ---
Subjective - Date & Time of Evaluation Date of Evaluation: 10/09/16 Time of Evaluation: 06:34 - Subjective Subjective: 75F Objective - Vital Signs/Intake and Output Vital Signs (last 24 hours): Temp Pulse Resp BP Pulse Ox 36.6 C 85 18 129/67 95 10/09/16 05:30 10/09/16 05:30 10/09/16 05:30 10/09/16 05:30 10/09/16 05:30 Intake and Output: 10/08/16 10/09/16 18:59 06:59 Intake Total 860 Balance 860 - Medications Medications: Current Medications Calcium/Vitamin D (Oyster Shell Calcium/Vitamin D 500 Mg-200 Iu) 1 tab PO BID [facility] Last Admin: 10/08/16 17:22 Dose: 1 tab Clonazepam (Klonopin) 0.25 mg PO DAILY PRN PRN Reason: Anxiety Diphenhydramine HCl (Benadryl) 25 mg PO Q6H PRN PRN Reason: Itching / Pruritus Famotidine (Pepcid) 20 mg PO DAILY [facility] Last Admin: 10/08/16 17:22 Dose: 20 mg Fenofibrate (Tricor) 145 mg PO DAILY [facility] Last Admin: 10/08/16 17:23 Dose: 145 mg Sertraline HCl (Zoloft) 25 mg PO DAILY [facility] Last Admin: 10/08/16 17:23 Dose: 25 mg Valsartan (Diovan) 80 mg PO DAILY [facility] Last Admin: 10/08/16 17:21 Dose: 80 mg - Labs Labs: 10/08/16 05:45 10/08/16 05:45 PT 12.8 Seconds (9.8-13.1) 10/05/16 13:30 INR 1.1 (0.9-1.2) 10/05/16 13:30 APTT 19.2 Seconds (25.6-37.1) L 10/05/16 13:30
[2016-10-09 06:36] LABS: HEMOGLOBIN 10.7 g/dL (12.0-16.0); MEAN CELL VOLUME 73.8 fl (81.0-99.0); MEAN CORPUSCULAR HEMOGLOBIN 22.9 pg (27.0-31.0); RBC 4.67 Mil/uL (3.80-5.20); WHITE BLOOD COUNT 26.5 K/uL (4.8-10.8)
[2016-10-09 06:41] LABS: ALB/GLOB RATIO 1.6 (1.0-2.1); ALBUMIN 4.1 g/dL (3.5-5.0); CALCIUM 10.7 mg/dL (8.4-10.2)
[2016-10-09] MEDS: Calcium-Vit D 500 mg-200 Units Tab UD PO SCH ×2 (08:50→17:12)
--- NOTE | 2016-10-09 11:17 | CP.PCM.PN ---
<Jaja Yanes - Last Filed: 10/09/16 13:01> Subjective - Date & Time of Evaluation Date of Evaluation: 10/09/16 Time of Evaluation: 06:30 - Subjective Subjective: Patient s/e at bedside this AM. SHYANNEEO. Patient states that she is experiencing Left flank pain near where her spleen is palpable, but denies nausea, vomiting, fevers, chills, or any other symptoms Objective - Vital Signs/Intake and Output Vital Signs (last 24 hours): Temp Pulse Resp BP Pulse Ox 98.2 F 74 20 120/72 95 10/09/16 07:54 10/09/16 09:00 10/09/16 07:54 10/09/16 07:54 10/09/16 07:54 Intake and Output: 10/09/16 10/09/16 06:59 18:59 Intake Total 200 Balance 200 - Medications Medications: Current Medications Calcium/Vitamin D (Oyster Shell Calcium/Vitamin D 500 Mg-200 Iu) 1 tab PO BID [facility] Last Admin: 10/09/16 08:50 Dose: 1 tab Clonazepam (Klonopin) 0.25 mg PO DAILY PRN PRN Reason: Anxiety Diphenhydramine HCl (Benadryl) 25 mg PO Q6H PRN PRN Reason: Itching / Pruritus Famotidine (Pepcid) 20 mg PO DAILY [facility] Last Admin: 10/09/16 08:51 Dose: 20 mg Fenofibrate (Tricor) 145 mg PO DAILY [facility] Last Admin: 10/09/16 08:51 Dose: 145 mg Ketorolac Tromethamine (Toradol) 10 mg PO Q6 PRN PRN Reason: Pain, moderate (4-7) Sertraline HCl (Zoloft) 25 mg PO DAILY [facility] Last Admin: 10/09/16 08:51 Dose: 25 mg Valsartan (Diovan) 80 mg PO DAILY [facility] Last Admin: 10/09/16 08:50 Dose: 80 mg - Labs Labs: 10/09/16 05:30 10/09/16 05:30 PT 12.8 Seconds (9.8-13.1) 10/05/16 13:30 INR 1.1 (0.9-1.2) 10/05/16 13:30 APTT 19.2 Seconds (25.6-37.1) L 10/05/16 13:30 - Constitutional Appears: Well, Non-toxic, No Acute Distress - Head Exam Head Exam: ATRAUMATIC, NORMOCEPHALIC - Eye Exam Eye Exam: Normal appearance. absent: Conjunctival injection, Scleral icterus - ENT Exam ENT Exam: Mucous Membranes Moist, Normal Oropharynx - Respiratory Exam Respiratory Exam: NORMAL BREATHING PATTERN. absent: Accessory Muscle Use, Respiratory Distress - Cardiovascular Exam Cardiovascular Exam: RRR - GI/Abdominal Exam GI & Abdominal Exam: Soft, Tenderness (to moderate palpation in the LUQ), Organomegaly (Enlarged, palpable spleen in the LUQ extending into LLQ). absent : Distended, Rebound - Extremities Exam Extremities Exam: Normal Capillary Refill. absent: Calf Tenderness, Pedal Edema , Tenderness - Back Exam Back Exam: absent: CVA tenderness (L), CVA tenderness (R) Additional comments: Left flank pain where spleen is palpated - Neurological Exam Neurological Exam: Alert, Awake, Oriented x3 - Psychiatric Exam Psychiatric exam: Normal Affect, Normal Mood - Skin Skin Exam: Dry, Intact, Normal Color, Warm Assessment and Plan - Assessment and Plan (Free Text) Assessment: 75F with diffuse lymphadenopathy and splenomegaly r/o lymphoma/leukemia -Lymph node bx tomorrow AM -Patient could be discharged per primary's discretion with plans to return for [id number] biopsy tomorrow -NPO after midnight -Serial abdominal exams given new onset of pain -analgesia -Continue current management per primary team -Recommend bone-marrow biopsy per Oncology team Discussed with Dr. Dahlia Yanes, PGY1 <Timmy Villagomez - Last Filed: 10/09/16 21:20> Objective - Vital Signs/Intake and Output Vital Signs (last 24 hours): Temp Pulse Resp BP Pulse Ox 97.9 F 80 18 117/71 95 10/09/16 20:00 10/09/16 20:00 10/09/16 20:00 10/09/16 20:00 10/09/16 20:00 Intake and Output: 10/09/16 10/10/16 18:59 06:59 Intake Total 1600 Balance 1600 - Medications Medications: Current Medications Calcium/Vitamin D (Oyster Shell Calcium/Vitamin D 500 Mg-200 Iu) 1 tab PO BID [facility] Last Admin: 10/09/16 17:12 Dose: 1 tab Clonazepam (Klonopin) 0.25 mg PO DAILY PRN PRN Reason: Anxiety Diphenhydramine HCl (Benadryl) 25 mg PO Q6H PRN PRN Reason: Itching / Pruritus Famotidine (Pepcid) 20 mg PO DAILY [facility] Last Admin: 10/09/16 08:51 Dose: 20 mg Fenofibrate (Tricor) 145 mg PO DAILY [facility] Last Admin: 10/09/16 08:51 Dose: 145 mg Sodium Chloride (Sodium Chloride 0.9%) 1,000 mls @ 100 mls/hr IV .Q10H [facility] Stop: 10/10/16 12:02 Ketorolac Tromethamine (Toradol) 10 mg PO Q6 PRN PRN Reason: Pain, moderate (4-7) Last Admin: 10/09/16 12:44 Dose: 10 mg Lidocaine HCl (Lidocaine 1% (20ml)) 20 ml IJ ONCE ONE Stop: 10/10/16 07:01 Sertraline HCl (Zoloft) 25 mg PO DAILY [facility] Last Admin: 10/09/16 08:51 Dose: 25 mg Valsartan (Diovan) 80 mg PO DAILY [facility] Last Admin: 10/09/16 08:50 Dose: 80 mg - Labs Labs: 10/09/16 05:30 10/09/16 05:30 PT 12.8 Seconds (9.8-13.1) 10/05/16 13:30 INR 1.1 (0.9-1.2) 10/05/16 13:30 APTT 19.2 Seconds (25.6-37.1) L 10/05/16 13:30 Attending/Attestation - Attestation I have personally seen and examined this patient.: Yes I have fully participated in the care of the patient.: Yes I have reviewed all pertinent clinical information, including history, physical exam and plan: Yes Notes (Text): 10/09/16 21:17 Pt was seen and examined at bedside on 10/09/16 Agree with above note and assessment Pt with Neutropenia and Lymphadenopathy OR for Left Axillary Lymphadenopathy Consent Plan d.w pt in detail Risk and benefit explained in detail.
--- NOTE | 2016-10-09 11:44 | CP.PCM.PN ---
Subjective - Date & Time of Evaluation Date of Evaluation: 10/09/16 Time of Evaluation: 11:40 - Subjective Subjective: Pt;s counts are stable..She was to have a lymph node biopsy done yesterday, but it was cancelled. it may be done tyomorrow. I will speak to the vice president of consulting services and see if pt will have her biopsy tomorrow. If not, will request a consult from IR. Objective - Vital Signs/Intake and Output Vital Signs (last 24 hours): Temp Pulse Resp BP Pulse Ox 98.2 F 74 20 120/72 95 10/09/16 07:54 10/09/16 09:00 10/09/16 07:54 10/09/16 07:54 10/09/16 07:54 Intake and Output: 10/09/16 10/09/16 06:59 18:59 Intake Total 200 Balance 200 - Medications Medications: Current Medications Calcium/Vitamin D (Oyster Shell Calcium/Vitamin D 500 Mg-200 Iu) 1 tab PO BID [facility] Last Admin: 10/09/16 08:50 Dose: 1 tab Clonazepam (Klonopin) 0.25 mg PO DAILY PRN PRN Reason: Anxiety Diphenhydramine HCl (Benadryl) 25 mg PO Q6H PRN PRN Reason: Itching / Pruritus Famotidine (Pepcid) 20 mg PO DAILY [facility] Last Admin: 10/09/16 08:51 Dose: 20 mg Fenofibrate (Tricor) 145 mg PO DAILY [facility] Last Admin: 10/09/16 08:51 Dose: 145 mg Ketorolac Tromethamine (Toradol) 10 mg PO Q6 PRN PRN Reason: Pain, moderate (4-7) Sertraline HCl (Zoloft) 25 mg PO DAILY [facility] Last Admin: 10/09/16 08:51 Dose: 25 mg Valsartan (Diovan) 80 mg PO DAILY [facility] Last Admin: 10/09/16 08:50 Dose: 80 mg - Labs Labs: 10/09/16 05:30 10/09/16 05:30 PT 12.8 Seconds (9.8-13.1) 10/05/16 13:30 INR 1.1 (0.9-1.2) 10/05/16 13:30 APTT 19.2 Seconds (25.6-37.1) L 10/05/16 13:30
[2016-10-09] MEDS: Sodium Chloride 0.9% 1,000 ML IV SCH (23:50)
[2016-10-10] MEDS ORDERED: Propofol 10 mg/ml Inj (20 ML) ONE (06:57)
[2016-10-10] MEDS ORDERED: Rocuronium 10 mg/ml (5 ml) ONE (06:57)
[2016-10-10] MEDS ORDERED: Midazolam 2 MG/2 ML VIAL ONE (06:57)
[2016-10-10] MEDS ORDERED: Succinylcholine 200 mg/10 ml Inj IV ONE (06:57)
[2016-10-10] MEDS ORDERED: ePHEDrine 50 mg/ml Inj ONE (06:57)
[2016-10-10] MEDS ORDERED: Lidocaine 1% Inj (20ml) IJ ONE ×2 (07:00→08:36)
[2016-10-10] MEDS ORDERED: Sevoflurane - Inhalation Anesthetic Liq (250 ml) ONE (07:12)
[2016-10-10] MEDS ORDERED: Phenylephrine 10 mg/ml Inj ONE (07:15)
[2016-10-10 07:20] LABS: HEMOGLOBIN 10.6 g/dL (12.0-16.0); MEAN CELL VOLUME 74.8 fl (81.0-99.0); MEAN CORPUSCULAR HEMOGLOBIN 22.8 pg (27.0-31.0); MEAN CORPUSCULAR HGB CONC 30.5 g/dL (33.0-37.0); RBC 4.62 Mil/uL (3.80-5.20); WHITE BLOOD COUNT 21.9 K/uL (4.8-10.8)
[2016-10-10] MEDS ORDERED: Lidocaine 2% w Epi 1:100,000 Inj IJ ONE (07:20)
[2016-10-10] MEDS ORDERED: Lidocaine 1% Inj (20ml) ONE (07:20)
[2016-10-10] MEDS ORDERED: Bupivacaine 0.5% Inj(30mL) ONE (07:20)
[2016-10-10 07:31] LABS: CALCIUM 10.4 mg/dL (8.4-10.2)
[2016-10-10] MEDS ORDERED: Sodium Chloride 0.9% 500 ML IV ONE (08:17)
[2016-10-10 08:23] LABS: INR 1.2 (0.9-1.2); PARTIAL THROMBOPLASTIN TIME 24.9 Seconds (25.6-37.1); PROTHROMBIN TIME 13.2 Seconds (9.8-13.1)
[2016-10-10] MEDS: Calcium-Vit D 500 mg-200 Units Tab UD PO SCH ×2 (08:23→10:51)
--- NOTE | 2016-10-10 08:41 | PN ---
DATE: 10/10/2016 The patient seen and examined. Interim events noted. Consults noted, appreciated. Surgery and mable tology/oncology followup and intervention noted and appreciated. The patient is scheduled for possib le surgery today. The patient is sleepy, arousable, feels okay. Denies any specific complaint. No chest pain or shortness of breath. PHYSICAL EXAMINATION: GENERAL: The patient is in no acute distress. VITAL SIGNS: Stable. HEART: S1, S2 normal, regular. LUNGS: Good bilateral air entry. ABDOMEN: Soft, nontender. EXTREMITIES: No edema, no calf swelling, no tenderness. No acute ischemia. CENTRAL NERVOUS SYSTEM: Essentially unchanged. DIAGNOSTIC DATA: Available diagnostic data reviewed. Telemetry monitoring does not reveal significa nt arrhythmias. Overall, the patient's general medical condition is stable. PLAN: As ordered. Niranjan Mari MD cc: [id number] TT: 10/10/2016 08:41:04 Confirmation # [id number] Dictation # [id number]
[2016-10-10] MEDS ORDERED: Cellulose Hemostat 2X3 Sheet TP ONE (08:58)
--- NOTE | 2016-10-10 09:26 | PCM.SURG1 ---
Surgeon's Initial Post Op Note - Surgeon's Notes Surgeon: Dr. Villagomez Air Reduction Equipment Operator: Jaja Yanes, PGY1 Pre-Operative Diagnosis: lymphadenopathy, leukemia Operative Findings: See full report Post-Operative Diagnosis: same Operation Performed: Left axillary excisional lymphnode biopsy Specimen/Specimens Removed: Left axillary lymph node tissue Estimated Blood Loss: EBL {In ML}: 3 Date of Surgery/Procedure: 10/10/16 Time of Surgery/Procedure: 07:50
[2016-10-10 10:47] VITALS: RESP 18
[2016-10-10] MEDS: Sodium Chloride 0.9% 1,000 ML IV SCH (10:52)
[2016-10-10 12:37] VITALS: BP 132/77; PULSE 82; TEMP 98.5; O2SAT 97
--- NOTE | 2016-10-10 15:38 | CARD ---
APPROVED REPORT EKG Measurement Heart [id number] <Conclusion> Normal sinus rhythm Minimal voltage criteria for LVH, may be normal variant Inferior infarct, age undetermined Abnormal ECG
--- NOTE | 2016-10-10 18:09 | OP ---
PROCEDURE DATE: 10/10/2016 PREOPERATIVE DIAGNOSIS: Generalized lymphadenopathy, rule out lymphoma. POSTOPERATIVE DIAGNOSIS: Generalized lymphadenopathy, rule out lymphoma. PROCEDURE DONE: Left axillary lymph node biopsy, Deep. SURGEON: Timmy Villagomez MD WOUND TREATMENT RN: Jaja Yanes, PGY-1 resident. ANESTHESIA: General endotracheal tube anesthesia. ESTIMATED BLOOD LOSS: Around 10 mL. DRAINS: None. PATHOLOGY: The lymph node was sent for the permanent pathology. COMPLICATIONS: None. INTRAOPERATIVE FINDINGS: The patient had multiple enlarged lymph nodes of left axilla.. INTRAOPERATIVE STEPS: This is a 75-year-old female who was diagnosed with generalized lymphadenopathy and the patient had enlarged lymph node into the left axilla and the patient was consented for axillary lymph node biopsy. Brought to the OR, placed supine on the operating table. After induction of the anesthesia, the left axilla was prepped and draped in a usual sterile fashion and a skin crease incision was made. After incising skin and subcutaneous tissue, the axillary fascia was incised and axillary fat was entered. There were multiple lymph nodes in the axilla and 2 large lymph nodes were completely excised and they were sent to the table for the pathology. There was a proper hemostasis achieved. The wound was irrigated and wound was closed in 2 layers. The mid axillary fascia with 2-0 Vicryl, subcuticular 2-0 Vicryl, skin with a 4-0 Monocryl and dry sterile dressing was applied. The patient tolerated the procedure well. Count of instruments and gauze was correct. There was no apparent complication. Timmy Villagomez MD cc: [id number] TT: 10/10/2016 18:08:43 jn MTDD
--- NOTE | 2016-10-12 10:31 | PQF GENQUE ---
Dr. Mari pt was admitted with questionable leukemia. Pt had lymph node biopsy on 10/10. If known after study what is the principal diagnosis for this case? This form is a permanent part of the medical record Clarification of your documentation is requested to better reflect the severity of illness and intensity of treatment of your patient. Indicators present [] Specify: [] [] Specify: [] [] Specify: [] [] Specify: [] Location in the medical record that reflects the above clinical findings: [] Treatment Provided: [] PHYSICIAN'S RESPONSE Based on your medical judgment of the clinical indicators outlined above please clarify the following: [] Practitioner response [] If unable to determine, please check the box, sign and date. Present On Admission (POA) Indicator: [] Present at the time of admission [] Not present at the time of admission [] Clinically Undetermined In responding to this query, please exercise your independent professional judgment. The fact that a question is asked does not imply that any particular answer is desired or expected. Thank you for your clarification on this documentation. If you have any questions please call:[ ] * Thank you, [ ]Stephany PIPER
== END 2016-10-10 15:45 | disposition home or self-care (01) | DRG 825 ==
LOC: H.ER 12:48 → H.ERHOLD 16:09 → H.TEL 18:07
PROVIDERS: ADMIT Internal Medicine; ATTEND Internal Medicine
PROC: 30233N1 Transfusion of Nonautologous Red Blood Cells into Peripheral Vein, Percutaneous Approach (ICD-10-PCS; principal; 2016-10-05)
PROC: 07B60ZX Excision of Left Axillary Lymphatic, Open Approach, Diagnostic (ICD-10-PCS; 2016-10-10)
DX: C91.10 Chronic lymphocytic leukemia of B-cell type not having achieved remission (principal); D70.9 Neutropenia, unspecified; I10 Essential (primary) hypertension; R16.1 Splenomegaly, not elsewhere classified; F32.9 Major depressive disorder, single episode, unspecified; F41.9 Anxiety disorder, unspecified; E78.00 Pure hypercholesterolemia, unspecified; D50.9 Iron deficiency anemia, unspecified; E66.9 Obesity, unspecified; Z68.32 Body mass index [BMI] 32.0-32.9, adult; L29.9 Pruritus, unspecified

== ENCOUNTER 2016-10-19 10:57 | Day surgery (SDC) | payer MEDICARE ==
[2016-10-19 11:09] VITALS: BMI 33.4
[2016-10-19 11:52] LABS: BASO # 0.1 K/uL (0.0-0.2); BASO % 0.5 % (0.0-2.0); EOS # 0.1 K/uL (0.0-0.7); EOS % 0.6 % (0.0-4.0); HEMOGLOBIN 10.7 g/dL (12.0-16.0); LYMPH # 15.6 K/uL (1.0-4.3); LYMPH % 71.7 % (20.0-40.0); MEAN CELL VOLUME 74.6 fl (81.0-99.0); MEAN CORPUSCULAR HEMOGLOBIN 23.5 pg (27.0-31.0); MEAN CORPUSCULAR HGB CONC 31.5 g/dL (33.0-37.0); MEAN PLATELET VOLUME 9.6 fl (7.2-11.7); MONO # 0.6 K/uL (0.0-0.8); MONO % 2.7 % (0.0-10.0); NEUT # 5.3 K/uL (1.8-7.0); NEUT % 24.5 % (50.0-75.0); NRBC % 0.1 % (0.0-0.0); PLATELET COUNT 239 K/uL (130-400); RBC 4.57 Mil/uL (3.80-5.20); RED CELL DISTRIBUTION WIDTH 30.6 % (11.5-14.5); WHITE BLOOD COUNT 21.8 K/uL (4.8-10.8)
[2016-10-19 12:08] LABS: ALB/GLOB RATIO 1.7 (1.0-2.1); CALCIUM 10.3 mg/dL (8.4-10.2)
[2016-10-19 12:10] LABS: PROTHROMBIN TIME 12.7 Seconds (9.8-13.1)
[2016-10-19 12:11] LABS: INR 1.1 (0.9-1.2); PARTIAL THROMBOPLASTIN TIME 26.7 Seconds (25.6-37.1)
[2016-10-19] MEDS ORDERED: Lidocaine 1% Inj (20ml) ONE (12:35)
[2016-10-19] MEDS ORDERED: Midazolam 2 MG/2 ML VIAL ONE (13:12)
[2016-10-19] MEDS ORDERED: ceFAZolin 1 GM in Sodium Chloride 0.9% 100 ML IVPB ONE (13:19)
[2016-10-19 13:23] LABS: ANISOCYTOSIS SLIGHT; LYMPHOCYTE 62 % (20-50); MONOCYTE 6 % (0-10); NEUTROPHIL 28 % (42-75); PLATELET ESTIMATE NORMAL (NORMAL); POIKILOCYTOSIS SLIGHT; REACTIVE LYMPHOCYTES 4 % (0-0); TOTAL CELLS COUNTED 100
[2016-10-19 13:24] LABS: LARGE PLATELETS PRESENT; TEARDROP CELLS SLIGHT
[2016-10-19] MEDS ORDERED: Lidocaine 2% w Epi 1:100,000 Inj IJ ONE (13:27)
--- NOTE | 2016-10-19 14:00 | CP.SDSHP ---
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 Plan Right IJV port placement. Informed consent obtained. Pt. Evaluated Today:Candidate for Anesthesia & Procedure: Yes (ASA 3 Malampati 3) Short Stay Discharge - Short Stay Discharge Admitting Diagnosis/Reason for Visit: C85.90 Progress Note/Discharge Note with Instructions: s/p right IJ vein port placement.
--- NOTE | 2016-10-19 14:02 | PCM.SURG1 ---
Surgeon's Initial Post Op Note - Surgeon's Notes Surgeon: Jared Sow MD Breastfeeding Program Coordinator: NONE Type of Anesthesia: IV Sedation Pre-Operative Diagnosis: Lymphoma Operative Findings: US showed cervical adenopathy. Patent right IJV. Post-Operative Diagnosis: Lymphoma Operation Performed: Port placement via right IJ vein. Tip in SVC. Specimen/Specimens Removed: None Estimated Blood Loss: EBL {In ML}: 3 Blood Products Given: N/A Drains Used: No Drains Post-Op Condition: Good Date of Surgery/Procedure: 10/19/16 Time of Surgery/Procedure: 14:00
[2016-10-19] MEDS ORDERED: Lactated Ringer's 1,000 ML IV SCH (14:21)
[2016-10-19 14:27] VITALS: RESP 18
[2016-10-19 16:38] VITALS: BP 142/76; TEMP 98.4; O2SAT 99
[2016-10-22 08:22] VITALS: PULSE 74
--- NOTE | 2016-10-22 10:57 | VASCULAR ---
PROCEDURE: Date of procedure: 10/19/2016 Procedure: 1. Placement of a right IJ port catheter with ultrasound and fluoroscopic guidance, CPT 74413 2. Catheter tip confirmation with spot radiograph in the superior vena cava. Medications: The patient was sedated anesthesiologist along with monitoring, Ancef 1 gm, 8 cc Lidocaine 1% w Epinephrine HISTORY: Lymphoma requiring port for chemotherapy TECHNIQUE: Following informed consent the procedure time-out, patient was placed supine on the interventional table and the right neck and chest were prepped and draped in the usual sterile fashion. Ultrasound showed a compressible right internal jugular vein. After the patient was sedated by the anesthesiologist, the skin anesthetized with 1% lidocaine with epinephrine. Under direct ultrasound guidance, the right internal jugular vein was accessed with micropuncture technique. A guidewire was then advanced under fluoroscopic guidance into the superior vena cava. An image documenting ultrasound guidance for vascular access was permanently saved. The subcutaneous tissue of patient right chest was infiltrated with 1 percent lidocaine with epinephrine. A dermatotomy was made with a 15. Scalpel. The port pocket was then created with blunt dissection using a Alesia clamp. The port pocket was flushed. A port catheter was then tunneled under the skin and out the venotomy site. The port catheter was flushed, advanced through a peel-away sheath, adjusted for length, and attached to the port. The port was placed in the port pocket and was secured with 2-0 SurgiPro sutures. The port was flushed and locked with heparin. The port pocket was then closed with absorbable 4-0 Polysorb sutures. The port pocket and the venotomy site were reprepped with ChloraPrep. Steri-Strips were then applied to the port incision also venotomy site. A sterile dressing was then applied. Final spot radiograph showed the right IJ port catheter with tip of the port catheter in the superior vena cava. A port is functional and ready for use. IMPRESSION: Placement of right IJ port catheter. The tip of the port is in the superior vena cava.
== END 2016-10-19 16:35 | disposition home or self-care (01) ==
LOC: H.OPSURG 10:57
PROVIDERS: ATTEND Specialist
DX: C85.90 Non-Hodgkin lymphoma, unspecified, unspecified site (principal); E78.5 Hyperlipidemia, unspecified; I10 Essential (primary) hypertension
CPT/HCPCS: 36415; 36561; 76937; 77001; 80053; 83615; 85025; 85610; 85730; C1751; J0690; J2250; J3010; J7120

== ENCOUNTER 2017-10-24 15:52 | Emergency (ER) | payer MEDICARE ==
[2017-10-24 15:53] VITALS: BMI 31.4
--- NOTE | 2017-10-24 17:31 | ED PDOC ---
HPI: Female Pain Time Seen by Provider: 10/24/17 17:30 Chief Complaint (Nursing): Female Genitourinary Chief Complaint (Provider): dysuria History Per: Patient, Family (daughter is translating in togolese for patient) Additional Complaint(s): 76-year-old female presents to emergency department with generalized weakness and dysuria starting yesterday. Patient is currently undergoing chemotherapy since last year for non-Hodgkin's lymphoma. Her next round of chemotherapy is on November 06. Patient denies any chest pain, shortness of breath or dyspnea on exertion, no headache, dizziness or vision changes, no nausea, vomiting or abdominal pain. PMD: Dr. Parekh Past Medical History Reviewed: Historical Data, Nursing Documentation, Vital Signs Vital Signs: Last Vital Signs Temp 98.5 F 10/24/17 17:20 Pulse 76 10/24/17 17:20 Resp 20 10/24/17 17:20 BP 133/80 10/24/17 17:20 Pulse Ox 98 10/24/17 17:20 - Medical History PMH: Anxiety, Depression, HTN, Hypercholesterolemia - Family History Family History: States: No Known Family Hx - Living Arrangements Living Arrangements: With Family - Social History Current smoker - smoking cessation education provided: No Alcohol: None Drugs: Denies - Home Medications Home Medications: Ambulatory Orders Medication Instructions Recorded Sertraline [Zoloft] 50 mg PO DAILY 10/05/16 Valsartan [Diovan] 180 mg PO DAILY 10/05/16 Clonazepam 0.25 mg PO DAILY PRN 05/13/17 Docusate [Colace] 100 mg PO BID 07/17/17 Ferrous Sulfate [Feosol] 325 mg PO BID 07/17/17 Ciprofloxacin HCl [Cipro] 500 mg PO BID #14 tablet 10/24/17 - Allergies Allergies/Adverse Reactions: Allergies Allergy/AdvReac Type Severity Reaction Status Date / Time No Known Allergies Allergy Verified 10/24/17 17:20 Review of Systems ROS Statement: Except As Marked, All Systems Reviewed And Found Negative Constitutional: Positive for: Weakness. Negative for: Fever, Chills Cardiovascular: Negative for: Chest Pain Respiratory: Negative for: Cough Gastrointestinal: Negative for: Nausea, Vomiting, Abdominal Pain Genitourinary Female: Positive for: Dysuria, Frequency Neurological: Negative for: Headache, Dizziness Physical Exam - Reviewed Nursing Documentation Reviewed: Yes Vital Signs Reviewed: Yes - Physical Exam Appears: Positive for: Well, Non-toxic, No Acute Distress Skin: Positive for: Normal Color. Negative for: Rash Eye Exam: Positive for: Normal appearance Cardiovascular/Chest: Positive for: Regular Rate, Rhythm Respiratory: Positive for: Normal Breath Sounds. Negative for: Wheezing, Respiratory Distress Gastrointestinal/Abdominal: Positive for: Soft. Negative for: Tenderness, Distended, Guarding Back: Negative for: L CVA Tenderness, R CVA Tenderness Extremity: Positive for: Normal ROM Neurologic/Psych: Positive for: Alert, Oriented - Laboratory Results Result Diagrams: 10/24/17 18:30 10/24/17 18:20 - ECG Interpretation Of ECG: NSR 74 bpm, no acute finding, reviewed by PA and ED attending O2 Sat by Pulse Oximetry: 98 Pulse Ox Interpretation: Normal - Other Rad CXR X-Ray: Interpreted by Me, Viewed By Me X-Ray Interpretation: no acute finding or interval change Medical Decision Making Medical Decision Makin76 year old with weakness and dysuria. Patient is afebrile, well appearing, non -toxic appearing Plan: CBC CMP Trop CXR EKG UA and culture Blood culture IVF Patient and daughter at bedside is aware of all diagnostic testing results. All questions answered. Patient presents with dysuria and leukocytes are noted in urine. Will treat with prescription for Cipro. Advised fluids, NSAIDs for pain and PMD follow-up in 2-3 days. Patient is aware she can RTED at any time if acutely worse. Disposition - Clinical Impression Clinical Impression: Urinary tract infection - Patient ED Disposition Is Patient to be Admitted: No Counseled Patient/Family Regarding: Studies Performed, Diagnosis, Need For Followup, Rx Given - Disposition Referrals: Ifrah Parekh MD [Family Provider] - Disposition: Routine/Home Disposition Time: 20:12 Condition: STABLE Additional Instructions: Take prescription meds as directed. Tylenol or Advil for pain as needed. Drink plenty of fluids. Follow-up with primary doctor in 2-3 days. Prescriptions: Ciprofloxacin HCl [Cipro] 500 mg PO BID #14 tablet Instructions: Urinary Tract Infections in Adults Forms: [employer] (Haitian) Print Language: SAMI Results - Lab Results Lab Results: 10/24/17 10/24/17 10/24/17 18:30 18:20 18:20 WBC 6.0 RBC 4.58 Hgb 11.7 L Hct 36.2 MCV 79.0 L D MCH 25.6 L MCHC 32.3 L RDW 18.8 H Plt Count 259 MPV 9.0 Neut % (Auto) 62.1 Lymph % (Auto) 26.4 Mayes % (Auto) 9.4 Eos % (Auto) 1.5 Baso % (Auto) 0.6 Neut # (Auto) 3.7 Lymph # (Auto) 1.6 Mayes # (Auto) 0.6 Eos # (Auto) 0.1 Baso # (Auto) 0.0 Sodium 143 Potassium 4.7 Chloride 106 Carbon Dioxide 23 Anion Gap 19 BUN 22 H Creatinine 1.0 Est GFR ( Amer) > 60 Est GFR (Non-Af Amer) 54 Random Glucose 92 Calcium 10.2 Total Bilirubin 0.7 AST 36 D ALT 31 Alkaline Phosphatase 108 Troponin I < 0.0120 Total Protein 7.4 Albumin 4.6 Globulin 2.8 Albumin/Globulin Ratio 1.6 Urine Color Yellow Urine Clarity Slighty-cloudy Urine pH 7.0 Ur Specific [place] 1.017 Urine Protein Negative Urine Glucose (UA) Neg Urine Ketones Negative Urine Blood Negative Urine Nitrate Negative Urine Bilirubin Negative Urine Urobilinogen 0.2-1.0 Ur Leukocyte Esterase Trace Urine Microscopic WBC 5 Ur Squamous Epith Cells 1 Amorphous Sediment Rare H Urine Bacteria Few H
[2017-10-24] MEDS ORDERED: Sodium Chloride 0.9% 1,000 ML IV STA (17:32)
[2017-10-24 18:42] LABS: BASO % 0.6 % (0.0-2.0); EOS # 0.1 K/uL (0.0-0.7); EOS % 1.5 % (0.0-4.0); HEMOGLOBIN 11.7 g/dL (12.0-16.0); LYMPH # 1.6 K/uL (1.0-4.3); LYMPH % 26.4 % (20.0-40.0); MEAN CORPUSCULAR HEMOGLOBIN 25.6 pg (27.0-31.0); MEAN CORPUSCULAR HGB CONC 32.3 g/dL (33.0-37.0); MONO # 0.6 K/uL (0.0-0.8); MONO % 9.4 % (0.0-10.0); NEUT # 3.7 K/uL (1.8-7.0); NEUT % 62.1 % (50.0-75.0); NRBC % 0.1 % (0.0-0.0); RBC 4.58 Mil/uL (3.80-5.20); RED CELL DISTRIBUTION WIDTH 18.8 % (11.5-14.5)
--- NOTE | 2017-10-24 18:45 | RAD ---
HISTORY: Weakness COMPARISON: 10/05/2016. TECHNIQUE: Chest PA and lateral FINDINGS: LUNGS: No active pulmonary disease. PLEURA: No significant pleural effusion identified. No pneumothorax apparent. CARDIOVASCULAR: No radiographic findings to suggest acute or significant cardiovascular disease. Venous access catheter in satisfactory position. OSSEOUS STRUCTURES: No significant abnormalities. VISUALIZED UPPER ABDOMEN: Normal. OTHER FINDINGS: Stable large hiatal hernia. IMPRESSION: No active disease. No significant interval change compared to the prior examination(s).
[2017-10-24 18:52] LABS: SQUAMOUS EPITHIAL 1 /hpf (0-5); URINE AMORPHOUS SEDIMENT RARE /ul (<OCC); URINE BACTERIA FEW (<OCC); URINE BILIRUBIN NEGATIVE (NEGATIVE); URINE BLOOD NEGATIVE (NEGATIVE); URINE CLARITY SLIGHTY-CLOUDY (Clear); URINE COLOR YELLOW (YELLOW); URINE GLUCOSE (UA) NEG (Normal); URINE LEUKOCYTE ESTERASE TRACE Leu/uL (Negative); URINE PROTEIN NEGATIVE (NEGATIVE); URINE UROBILINOGEN 0.2-1.0 mg/dL (0.2-1.0)
[2017-10-24 18:53] LABS: ALB/GLOB RATIO 1.6 (1.0-2.1); ALBUMIN 4.6 g/dL (3.5-5.0); CALCIUM 10.2 mg/dL (8.4-10.2); GFR AFRICAN-AMERICAN > 60; GFR NON-AFRICAN AMERICAN 54
[2017-10-24 19:09] LABS: ALT/SGPT 31 U/L (9-52); AST/SGOT 36 U/L (14-36); BLOOD UREA NITROGEN 22 mg/dl (7-17)
[2017-10-24 20:45] VITALS: BP 132/71; PULSE 72; RESP 16; TEMP 98.1; O2SAT 99
--- NOTE | 2017-10-28 21:30 | CARD ---
APPROVED REPORT EKG Measurement Heart [id number] <Conclusion> Normal sinus rhythm Possible Anterior infarct, age undetermined Abnormal ECG
== END 2017-10-24 20:44 | disposition home or self-care (01) ==
LOC: H.ER 15:52
DX: N39.0 Urinary tract infection, site not specified (principal); E78.00 Pure hypercholesterolemia, unspecified; I10 Essential (primary) hypertension
CPT/HCPCS: 71046; 80053; 81003; 84484; 85025; 87040; 87086; 87181; 99284; J7030

== ENCOUNTER 2018-03-01 01:02 | Observation (INO) | payer MEDICARE, OTHER ==
[2018-03-01 01:17] VITALS: BMI 37.7
[2018-03-01] MEDS ORDERED: cefTRIAXone (Rocephin) 1 gm Inj IVPB ONE (01:35)
[2018-03-01] MEDS ORDERED: Iohexol 240 (50 ml) PO STA (01:36)
[2018-03-01] MEDS ORDERED: Sodium Chloride 0.9% 1,000 ML IV STA (01:37)
--- NOTE | 2018-03-01 01:40 | ED PDOC ---
HPI: Abdomen Chief Complaint (Provider): ABDOMINAL PAIN History Per: Patient (77 Y/O FEMALE H/O NON HODGKIN'S LYMPHOMA ON CHEMO H/O FREQUENT UTIS HERE WITH BACK PAIN/ABDOMINAL PAIN ASSOCIATED WITH DYSURIA X 1 DAY. NOTES NAUSEA BUT NO VOMITING/FEVERS. HAS H/O ABDOMINAL SURGERY 1996 FOR FISTULA. TOOK URISTAT TODAY WITHOUT RELIEF.) <Maura Santiago - Last Filed: 03/01/18 01:37> <Johnny Barrera - Last Filed: 03/01/18 19:32> Time Seen by Provider: 03/01/18 01:38 Chief Complaint (Nursing): Abdominal Pain Past Medical History Reviewed: Historical Data, Nursing Documentation, Vital Signs Vital Signs: Last Vital Signs Temp 97.7 F 03/01/18 01:17 Pulse 84 03/01/18 01:17 Resp 18 03/01/18 01:17 BP 154/86 H 03/01/18 01:17 Pulse Ox 96 03/01/18 01:17 - Medical History PMH: Anxiety, Arthritis, Depression, HTN, Hypercholesterolemia Denies: Chronic Kidney Disease <Maura Santiago - Last Filed: 03/01/18 01:37> Vital Signs: Last Vital Signs Temp 97.7 F 03/01/18 01:17 Pulse 84 03/01/18 01:17 Resp 18 03/01/18 01:17 BP 154/86 H 03/01/18 01:17 Pulse Ox 96 03/01/18 01:39 - Family History Family History: States: Unknown Family Hx <Johnny Barrera - Last Filed: 03/01/18 19:32> - Home Medications Home Medications: Ambulatory Orders Medication Instructions Recorded Clonazepam 0.25 mg PO DAILY PRN 05/13/17 Acetaminophen [Tylenol Arthritis] 1 tab PO PRN PRN 11/06/17 Olmesartan Medoxomil [Benicar] 1 tab PO DAILY 12/30/17 Sertraline HCl 1 tab PO DAILY 12/30/17 - Allergies Allergies/Adverse Reactions: Allergies Allergy/AdvReac Type Severity Reaction Status Date / Time No Known Allergies Allergy Verified 03/01/18 01:17 Review of Systems ROS Statement: Except As Marked, All Systems Reviewed And Found Negative Constitutional: Positive for: Fever Gastrointestinal: Positive for: Nausea, Abdominal Pain <Maura Santiago - Last Filed: 03/01/18 01:37> Physical Exam - Reviewed Nursing Documentation Reviewed: Yes Vital Signs Reviewed: Yes - Physical Exam Appears: Positive for: Well, Non-toxic, No Acute Distress Head Exam: Positive for: ATRAUMATIC, NORMAL INSPECTION, NORMOCEPHALIC Skin: Positive for: Normal Color, Warm, DRY Eye Exam: Positive for: EOMI, Normal appearance, PERRL ENT: Positive for: Normal ENT Inspection Neck: Positive for: Normal, Painless ROM Cardiovascular/Chest: Positive for: Regular Rate, Rhythm Respiratory: Positive for: CNT, Normal Breath Sounds Gastrointestinal/Abdominal: Positive for: Normal Exam, Soft Back: Positive for: Normal Inspection Extremity: Positive for: Normal ROM Neurologic/Psych: Positive for: Alert, Oriented <Maura Santiago - Last Filed: 03/01/18 01:37> - ECG O2 Sat by Pulse Oximetry: 96 <Maura Santiago - Last Filed: 03/01/18 01:37> - Laboratory Results Result Diagrams: 03/01/18 01:50 03/01/18 01:50 <Johnny Barrera - Last Filed: 03/01/18 19:32> Medical Decision Making Medical Decision Making: Time: 0611 CT RESULTS COMMENTS: Diffuse thickening of the transverse colon. Moderate enlarged spleen. 1.1 cm nonobstructing stone of the atrophic left kidney. Fluid-filled small bowels. The liver is of uniform attenuation without mass or defect. There is no intra or extrahepatic biliary ductal dilatation. The spleen is normal. The gallbladder is diffusely thickened and distended with multiple gallstones. The pancreas is of normal contour and attenuation characteristics. There is no evidence of adrenal mass. There is no evidence of ureteral mass. No renal or ureteral calculi are identified. There is no hydroureter or hydronephrosis. No evidence for appendicitis. No evidence for small or large bowel obstruction. There is no evidence of abdominal ascites or lymphadenopathy. There is no evidence of intrinsic or extrinsic bladder mass. There is no pelvic ascites or lymphadenopathy. Scattered sacral nerve root cysts are noted. Images of the lung bases show no evidence of pleural or parenchymal mass. There are no pleural effusions. The bony structures are free of lytic or blastic lesions. IMPRESSION: Uncomplicated enteritis. Suspected colitis of the transverse colon without perforation or pneumatosis coli. Cholelithiasis. Mild diffuse thickening of the wall of the gallbladder which can be better evaluated by ultrasound exam to exclude developing acute inflammatory pathology. Additional chronic findings as above. Thank you for your kind referral of this patient. Electronically signed on Mar 01, 2018 6:11:14 AM EST by: Karina Nagel M.D., Certified by ABR, MSK, Neuroradiology Time: 624 -- Patient continues to report of pain at this time. Patient given Morphine 2mg IVP. Patient to receive Gallbladder [Abdomen Limited(GB included)] US for f urther evaluation. Time: 699 -- Patient endorsed to Dr. Roy, pending US. Scribe Attestation: Documented by Eugenio Cortes, acting as a scribe for Johnny Barrera MD. Provider Scribe Attestation: All medical record entries made by the Scribe were at my direction and personally dictated by me. I have reviewed the chart and agree that the record accurately reflects my personal performance of the medical decision making and the disposition for this patient. I have also personally directed, reviewed, and agree with the discharge instructions and disposition. <Johnny Barrera - Last Filed: 03/01/18 19:32> Disposition <Maura Santiago - Last Filed: 03/01/18 01:37> - Patient ED Disposition Is Patient to be Admitted: Transfer of Care - Disposition Disposition: Transfer of Care Disposition Time: 07:00 Patient Signed Over To: Tod Roy <Johnny Barrera - Last Filed: 03/01/18 19:32> - Clinical Impression Clinical Impression: Colitis, Urinary tract infection, Cholelithiasis - Disposition Condition: FAIR
[2018-03-01] MEDS ORDERED: Iohexol 240 (50 ml) ONE (01:42)
[2018-03-01 01:48] LABS: VENOUS BLOOD GAS BASE EXCESS 0.5 mmol/L (0.0-2.0); VENOUS BLOOD GAS PCO2 41 mmHg (40-60); VENOUS BLOOD GAS PO2 52 mm/Hg (30-55)
[2018-03-01 01:51] LABS: SQUAMOUS EPITHIAL 10 /hpf (0-5); URINE BACTERIA RARE (<OCC); URINE BILIRUBIN NEGATIVE (NEGATIVE); URINE BLOOD NEGATIVE (NEGATIVE); URINE CLARITY SLIGHTY-CLOUDY (Clear); URINE COLOR AMBER (YELLOW); URINE GLUCOSE (UA) NEG (Normal); URINE HYALINE CAST 0-2 /hpf (0-2); URINE LEUKOCYTE ESTERASE SMALL Leu/uL (Negative); URINE PROTEIN NEGATIVE (NEGATIVE)
[2018-03-01] MEDS ORDERED: cefTRIAXone (Rocephin) 1 gm Inj ONE ×2 (01:56→02:03)
[2018-03-01 02:01] LABS: BASO % 0.4 % (0.0-2.0); EOS # 0.1 K/uL (0.0-0.7); EOS % 0.6 % (0.0-4.0); HEMOGLOBIN 10.8 g/dL (12.0-16.0); LYMPH # 2.1 K/uL (1.0-4.3); LYMPH % 17.6 % (20.0-40.0); MEAN CELL VOLUME 73.8 fl (81.0-99.0); MEAN CORPUSCULAR HEMOGLOBIN 23.3 pg (27.0-31.0); MEAN CORPUSCULAR HGB CONC 31.6 g/dL (33.0-37.0); MEAN PLATELET VOLUME 8.8 fl (7.2-11.7); MONO # 0.9 K/uL (0.0-0.8); MONO % 7.4 % (0.0-10.0); NEUT # 8.7 K/uL (1.8-7.0); RBC 4.61 Mil/uL (3.80-5.20); RED CELL DISTRIBUTION WIDTH 19.4 % (11.5-14.5); WHITE BLOOD COUNT 11.7 K/uL (4.8-10.8)
[2018-03-01 02:15] LABS: ALB/GLOB RATIO 1.7 (1.0-2.1); ALBUMIN 4.6 g/dL (3.5-5.0); CALCIUM 11.1 mg/dL (8.4-10.2)
[2018-03-01] MEDS ORDERED: Piperacillin/Tazobact 3.375 gm Inj IVPB ONE (06:27)
[2018-03-01] MEDS ORDERED: Piperacillin/Tazobact 3.375 GM in Sodium Chloride 0.9% 100 ML IVPB SCH (09:00)
--- NOTE | 2018-03-01 10:02 | US ---
Date of service: 03/01/2018 HISTORY: RUQ pain COMPARISON: None. TECHNIQUE: Sonographic evaluation of the right upper quadrant of the abdomen. FINDINGS: LIVER: Measures 18 cm in length. Moderate increased echogenicity of the liver parenchyma consistent with fatty infiltration. No mass. No intrahepatic bile duct dilatation. GALLBLADDER: Multiple shadowing gallstones identified. Largest gallstone measures 4 centimeters x 3.4 centimeters. No ultrasound evidence of acute cholecystitis. Normal gallbladder wall. No pericholecystic fluid. No sonographic Nelson sign was elicited by the technologist. COMMON BILE DUCT: Measures 2 to 3 mm. No stones. No dilatation. PANCREAS: Pancreas was not identified due to overlying bowel gas. RIGHT KIDNEY: Measures 10.6 cm in length. Normal echogenicity. No calculus, mass, or hydronephrosis. AORTA: Aorta was not well identified although no definite aneurysm was seen. No significant atherosclerotic plaque. IVC: Unremarkable. OTHER FINDINGS: None . IMPRESSION: Cholelithiasis. No ultrasound evidence of acute cholecystitis. Enlarged fatty liver. Nonvisualization of the pancreas.
--- NOTE | 2018-03-01 10:31 | ED PDOC ---
- Laboratory Results Result Diagrams: 03/01/18 01:50 03/01/18 01:50 - ECG O2 Sat by Pulse Oximetry: 97 Medical Decision Making Medical Decision Making: Given h/o non-Hodgkins lymphoma, pt has UTI, colitis and cholilthiasis will place in obs for IV antibiotics and obtain Heme onc consult. Disposition - Clinical Impression Clinical Impression: Colitis, Urinary tract infection, Cholelithiasis - POA Present On Arrival: None - Disposition Disposition: Hospitalized as Observation Patient Disposition Time: 10:32 Condition: FAIR Forms: [employer] (Thai)
--- NOTE | 2018-03-01 10:35 | CT ---
Date of service: 03/01/2018 PROCEDURE: CT Abdomen and Pelvis with contrast HISTORY: R/O DIVERTICULITIS COMPARISON: 01/02/2017 TECHNIQUE: Contrast dose: 95 milliliters Radiation dose: Total exam DLP = 875.01 mGy-cm. This CT exam was performed using one or more of the following dose reduction techniques: Automated exposure control, adjustment of the mA and/or kV according to patient size, and/or use of iterative reconstruction technique. FINDINGS: LOWER THORAX: Mild chronic interstitial changes and subsegmental atelectasis/scarring at the lung bases.. Large retrocardiac hiatal hernia is identified. No pleural effusion or pericardial effusion. Visualized remainder of the stomach is unremarkable. Duodenum is within normal limits. LIVER: Liver is fatty infiltrated without evidence of focal mass or intrahepatic ductal dilatation. GALLBLADDER AND BILE DUCTS: Multiple gallstones are seen in the gallbladder. No gallbladder wall thickening or pericholecystic fluid is seen. Common bile duct is normal in size. PANCREAS: Unremarkable. No gross lesion or ductal dilatation. SPLEEN: Spleen is top-normal in size without mass. ADRENALS: Unremarkable. No mass. KIDNEYS AND URETERS: Left kidney is atrophic with chronic calcification but no gross perinephric change or mass. No hydronephrosis is seen in the right kidney. Right kidney is otherwise normal in size with minor scarring. VASCULATURE: Unremarkable. No aortic aneurysm. No aortic atherosclerotic calcification or mural plaque present. BOWEL: Mild contrast filled small bowel loops are noted in the proximal to mid small bowel region with some lesser degree fluid-filled bowel loops noted elsewhere. There is however some mild thickening of some small bowel loops in the upper pelvis seen on axial images 129 through 136 series 3 and coronal images 54 through 72. This is nonspecific but may reflect a mild amount of enteritis. There is also some possible minor thickening of the midportion of the transverse colon without significant pericolonic inflammatory change. Terminal ileum is unremarkable. No right lower quadrant inflammatory process is identified. No focal fluid collection to suggest abscess is seen. No pneumatosis is noted. No free air is seen. APPENDIX: Appendix is not well seen although no right lower quadrant inflammatory process is noted to suggest appendicitis. PERITONEUM: No ascites is seen. No free air is noted. LYMPH NODES: Minor scattered lymph nodes are noted in the retroperitoneum and right lower quadrant. No pelvic or inguinal adenopathy is seen elsewhere. BLADDER: Unremarkable. REPRODUCTIVE: Unremarkable. BONES: Degenerative changes are seen in the spine. OTHER FINDINGS: None. IMPRESSION: Mild nonspecific contrast filled small bowel loops with some minimally irregular distal small bowel loops noted in the pelvis. Findings may suggest mild enteritis. In addition there is some minor thickening of the transverse colon without significant pericolonic inflammatory change. Minor colitis is also not excluded. Cholelithiasis. No CT scan evidence of acute cholecystitis. No CT scan evidence of pancreatitis. Moderate sized hiatal hernia. This agrees with preliminary report.
--- NOTE | 2018-03-02 18:02 | HP ---
CHIEF COMPLAINT: Abdominal pain. HISTORY OF PRESENT ILLNESS: This is a 77-year-old female, known case of Hodgkin's lymphoma, hypertension, elevated cholesterol, arthritis, anxiety, and depression, who was having abdominal pain and burning urination for about one day before the admission, so the patient was brought to the emergency room and was admitted for further management. REVIEW OF SYSTEMS: Positive for generalized weakness, malaise, fatigue, tiredness, nausea, fever, back pain, abdominal pain and burning urination. Review of systems otherwise is negative for headache, dizziness, syncope, loss of consciousness, chest pain, shortness of breath, vomiting, diarrhea, constipation, any new joint or extremity pain. Review of systems of all other organ system was unremarkable. PAST MEDICAL HISTORY: Significant for hypertension, elevated cholesterol, lymphoma, anxiety, depression, arthritis, morbid obesity. PAST SURGICAL HISTORY: Remarkable for some abdominal surgery. PERSONAL HISTORY: The patient is currently nonsmoker, nondrinker, no substance abuse. FAMILY HISTORY: Noncontributory. MEDICATIONS: The patient is on Benicar, Zoloft, Clonazepam and Tylenol. ALLERGIES: THE PATIENT IS NOT ALLERGIC TO ANY MEDICATIONS. PHYSICAL EXAMINATION: GENERAL: A well-built, well-nourished, morbidly obese 77-year-old female, in no acute distress. VITAL SIGNS: Temperature 97.8, pulse 88, respirations 20, blood pressure 151/87. HEENT: Pupils reacting to light. No JVD. No thyromegaly. No lymphadenopathy. No nystagmus. Normocephalic and atraumatic skull. HEART: S1 and S2 normal and regular. No significant murmur, gallop or rubs are heard. LUNGS: Shows good bilateral air entry. No rales or rhonchi. ABDOMEN: Soft, nontender. No organomegaly. No fluid. Bowel sounds are present and normal. No sign of acute abdomen. No guarding. No rigidity. No rebound. EXTREMITIES: No edema. No calf swelling. No tenderness. No acute ischemia. BE[employer]ING [employer]ING AS[employer]ER: The patient is alert, awake, oriented x3. There is no sign of any acute gross focal, motor, sensory or neurological deficits. DIAGNOSTIC DATA: Available diagnostic data reviewed. WBC 11.7, hemoglobin 10.8, hematocrit 34, platelets 276, Lactic acid is 1.7. Sodium 141, potassium 4.3, chloride 107, bicarb 24, BUN 20, creatinine 1.1. SMA-12 is unremarkable. Calcium level is 11.1, glucose is 164. unremarkable. Urinalysis is consistent with the urinary tract infection. EKG is unremarkable. CAT scan of the abdomen does not reveal any acute findings. Ultrasound is unremarkable. CAT scan of the abdomen is suggestive of enteritis and colitis. ADMITTING IMPRESSION: Colitis, enteritis, urinary tract infection, hypercalcemia, morbid obesity with BMI of 37, history of hypertension, elevated cholesterol and lymphoma. PLAN: As ordered. Case and plan discussed with the patient. Niranjan Mari MD
[2018-03-03 06:32] LABS: MEAN CELL VOLUME 74.6 fl (81.0-99.0); MEAN CORPUSCULAR HEMOGLOBIN 23.1 pg (27.0-31.0); RBC 4.77 Mil/uL (3.80-5.20); RED CELL DISTRIBUTION WIDTH 18.9 % (11.5-14.5); WHITE BLOOD COUNT 6.6 K/uL (4.8-10.8)
[2018-03-03 06:45] LABS: ALB/GLOB RATIO 1.5 (1.0-2.1); ALBUMIN 4.3 g/dL (3.5-5.0); CALCIUM 10.4 mg/dL (8.4-10.2)
[2018-03-03 09:15] VITALS: O2SAT 97
--- NOTE | 2018-03-03 12:26 | PN ---
DATE: 03/03/2018 SUBJECTIVE: The patient seen and examined. Interim events noted. The patient remains in regular medical floor. Sleeping, arousable, feels okay. Abdominal pain resolved. No chest pain. No shortness of breath. No urinary complaint. PHYSICAL EXAMINATION: GENERAL: The patient is in no acute distress. VITAL SIGNS: Stable. HEART: S1 and S2, normal and regular. LUNGS: Good bilateral air exchange. ABDOMEN: Soft, nontender. No organomegaly. No fluid. Bowel sounds are plus and normal. No sign of acute abdomen. No guarding. No rigidity. No rebound. EXTREMITIES: No edema. No calf swelling. No tenderness. No acute ischemia. CENTRAL NERVOUS SYSTEM: Exam is essentially unchanged. DIAGNOSTIC DATA: Available diagnostic data reviewed. Urine culture is positive, although ID and sensitivity is still pending. ASSESSMENT AND PLAN: Plan as ordered. Case and plan was discussed with the patient. Niranjan Mari MD
[2018-03-03 16:51] VITALS: BP 121/77; PULSE 93; RESP 18; TEMP 97.4
--- NOTE | 2018-03-07 22:12 | CON ---
DATE: 03/02/2018 REFERRING PHYSICIAN: Niranjan Mari MD REASON FOR CONSULTATION: Diarrhea. HISTORY OF PRESENT ILLNESS: This is a 77-year-old female with a history of Hodgkin's lymphoma, hypertension, hypercholesteremia, arthritis, anxiety. The patient complains of pain for the past two to three days. resolved. The patient is actually doing well, tolerating diet. PAST MEDICAL HISTORY: As above. PAST SURGICAL HISTORY: As above. MEDICATIONS: Have been reviewed. REVIEW OF SYSTEMS: All other systems have been reviewed and negative apart from the HPI. PHYSICAL EXAMINATION: GENERAL: This is a pleasant elderly female, lying in bed comfortably, in no apparent distress. VITAL SIGNS: Here in the hospital, grossly unremarkable. HEENT: Head: Normocephalic and atraumatic. Eyes: Pupils are equally reactive to light bilaterally. No conjunctival pallor or icterus. NECK: Supple, normal range of motion. No lymphadenopathy appreciated. LUNGS: Coarse breath sounds bilaterally. HEART: S1 and S2. Regular rate and rhythm. No murmurs appreciated. ABDOMEN: Soft, has some discomfort. Bowel sounds present. RECTAL: Deferred. EXTREMITIES: Pulses present bilaterally. SKIN: Warm, dry and intact. NEUROLOGIC: A and O x 3. LABORATORY DATA: All labs and radiology have been reviewed. WBC is 6.6, hemoglobin is 11, hematocrit 35.5. The CAT scan shows likely enteritis. ASSESSMENT AND PLAN: This is a pleasant 77-year-old female with enteritis. Supportive care for now. Discharge planning when stable. Outpatient endoscopy and colonoscopy. Thank you for the consult. Americo Arizmendi MD/ PhD cc: Niranjan Mari MD
== END 2018-03-03 16:10 | disposition home or self-care (01) ==
LOC: H.ER 01:02 → H.ERHOLD 10:29 → H.MEDSURG1 15:37
PROVIDERS: ADMIT Internal Medicine; ATTEND Internal Medicine
DX: K52.9 Noninfective gastroenteritis and colitis, unspecified (principal); N39.0 Urinary tract infection, site not specified; K76.0 Fatty (change of) liver, not elsewhere classified; K80.20 Calculus of gallbladder without cholecystitis without obstruction; F32.9 Major depressive disorder, single episode, unspecified; F41.9 Anxiety disorder, unspecified; M19.90 Unspecified osteoarthritis, unspecified site; N26.1 Atrophy of kidney (terminal); E83.52 Hypercalcemia; Z68.37 Body mass index [BMI] 37.0-37.9, adult; Z85.72 Personal history of non-Hodgkin lymphomas; C81.90 Hodgkin lymphoma, unspecified, unspecified site; E66.01 Morbid (severe) obesity due to excess calories; E78.00 Pure hypercholesterolemia, unspecified; I10 Essential (primary) hypertension
CPT/HCPCS: 36415; 74177; 76705; 80053; 81003; 82803; 83690; 85025; 85027; 87040; 87086; 87181; 93005; 96361; 96365; 96366; 96367; 96375; 99285; G0378; J0696; J1885; J2270; J2405; J2543; J7030; Q9966; Q9967

== ENCOUNTER 2018-04-25 12:19 | Emergency (ER) | payer MEDICARE, OTHER ==
[2018-04-25 12:19] VITALS: BMI 34.0
[2018-04-25 13:20] VITALS: RESP 18
--- NOTE | 2018-04-25 14:42 | ED PDOC ---
HPI: Abdomen Time Seen by Provider: 04/25/18 14:31 Chief Complaint (Nursing): GI Problem Chief Complaint (Provider): Diarhhea History Per: Patient, Family History/Exam Limitations: no limitations Past Medical History Vital Signs: Last Vital Signs Temp 97.6 F 04/25/18 13:18 Pulse 82 04/25/18 13:18 Resp 18 04/25/18 13:18 BP 143/86 04/25/18 13:18 Pulse Ox 98 04/25/18 13:18 - Medical History PMH: Anxiety, Arthritis, Depression, HTN, Hypercholesterolemia Denies: Chronic Kidney Disease - Family History Family History: States: Unknown Family Hx - Home Medications Home Medications: Ambulatory Orders Medication Instructions Recorded Clonazepam 0.25 mg PO DAILY PRN 05/13/17 Acetaminophen [Tylenol Arthritis] 1 tab PO PRN PRN 11/06/17 Olmesartan Medoxomil [Benicar] 1 tab PO DAILY 12/30/17 Sertraline HCl 1 tab PO DAILY 12/30/17 Nitrofurantoin Macrocrystals 100 mg PO BID #28 cap 03/03/18 [Macrobid] - Allergies Allergies/Adverse Reactions: Allergies Allergy/AdvReac Type Severity Reaction Status Date / Time [place] Allergy RASH Uncoded 04/25/18 15:46 - Laboratory Results Result Diagrams: 04/25/18 15:50 04/25/18 15:50 - ECG O2 Sat by Pulse Oximetry: 98 Disposition - Clinical Impression Clinical Impression: Gastroenteritis, Diarrhea, Gastritis Counseled Patient/Family Regarding: Studies Performed, Diagnosis, Need For Followup - Disposition Disposition: Routine/Home Disposition Time: 22:18 Condition: STABLE Additional Instructions: follow up with [facility] as instructed and referred previously Instructions: Diarrhea in Adolescents and Adults, Gastritis (DC), Colitis (DC) Forms: [employer] (Russian)
[2018-04-25] MEDS ORDERED: Sodium Chloride 0.9% 1,000 ML IV SCH (14:45)
[2018-04-25 16:00] LABS: BASO % 0.3 % (0.0-2.0); EOS % 0.6 % (0.0-4.0); HEMOGLOBIN 11.1 g/dL (12.0-16.0); LYMPH # 1.4 K/uL (1.0-4.3); LYMPH % 18.3 % (20.0-40.0); MEAN CELL VOLUME 76.5 fl (81.0-99.0); MEAN CORPUSCULAR HEMOGLOBIN 24.1 pg (27.0-31.0); MEAN CORPUSCULAR HGB CONC 31.5 g/dL (33.0-37.0); MEAN PLATELET VOLUME 8.6 fl (7.2-11.7); MONO # 0.3 K/uL (0.0-0.8); MONO % 4.6 % (0.0-10.0); NEUT # 5.6 K/uL (1.8-7.0); NEUT % 76.2 % (50.0-75.0); NRBC % 0.1 % (0.0-0.0); RBC 4.6 Mil/uL (3.80-5.20); RED CELL DISTRIBUTION WIDTH 19.8 % (11.5-14.5); WHITE BLOOD COUNT 7.4 K/uL (4.8-10.8)
[2018-04-25 16:38] LABS: ALB/GLOB RATIO 1.5 (1.0-2.1); ALBUMIN 4.6 g/dL (3.5-5.0); ALT/SGPT 40 U/L (9-52); AST/SGOT 36 U/L (14-36); BLOOD UREA NITROGEN 20 mg/dl (7-17); CALCIUM 10.8 mg/dL (8.4-10.2); GFR NON-AFRICAN AMERICAN 54; LIPASE 86 U/L (23-300)
[2018-04-25] MEDS ORDERED: Iohexol 300 100 ML IJ ONE (17:54)
[2018-04-25] MEDS ORDERED: Sodium Chloride 0.9% 50 ML IV ONE (17:55)
--- NOTE | 2018-04-25 18:45 | CT ---
Date of service: 04/25/2018 PROCEDURE: CT Abdomen and Pelvis with contrast HISTORY: r/o colitis COMPARISON: 03/01/2018 TECHNIQUE: Intravenous contrast dose: 95.4 mL Omnipaque 300. Radiation dose: Total exam DLP = 826.75 mGy-cm. This CT exam was performed using one or more of the following dose reduction techniques: Automated exposure control, adjustment of the mA and/or kV according to patient size, and/or use of iterative reconstruction technique. FINDINGS: LOWER THORAX: Stable large paraesophageal hiatal hernia. LIVER: Hepatic steatosis. No focal masses. No intrahepatic bile duct dilatation or perihepatic ascites. GALLBLADDER AND BILE DUCTS: Distended gallbladder with multiple gallstones. No indirect, secondary signs of acute cholecystitis. PANCREAS: Mildly atrophic pancreas without focal abnormality or evidence of acute pancreatitis. SPLEEN: Stable splenomegaly ADRENALS: Unremarkable. No mass. KIDNEYS AND URETERS: Unremarkable right kidney. Markedly atrophic left kidney lower pole calculi. No significant interval change compared to the prior examination(s). VASCULATURE: Unremarkable. No aortic aneurysm. No atherosclerotic calcification or mural plaque present. BOWEL: No evidence of colitis or diverticulitis. Unremarkable small bowel. [employer] suture line in the sigmoid colon. No obstructing abnormalities. APPENDIX: No abnormalities to suggest acute appendicitis. No right lower quadrant inflammatory processes identified. PERITONEUM: Unremarkable. No free fluid. No free air. LYMPH NODES: Unremarkable. No enlarged lymph nodes. BLADDER: Unremarkable. REPRODUCTIVE: Unremarkable. BONES: No acute fracture. OTHER FINDINGS: None. IMPRESSION: No evidence of colitis/diverticulitis or other acute inflammatory process. Additional benign, incidental/stable findings described in greater detail above.
[2018-04-25 19:09] LABS: SQUAMOUS EPITHIAL 1 /hpf (0-5); URINE BACTERIA RARE (<OCC); URINE BILIRUBIN NEGATIVE (NEGATIVE); URINE BLOOD SMALL (NEGATIVE); URINE CLARITY SLIGHTY-CLOUDY (Clear); URINE COLOR YELLOW (YELLOW); URINE GLUCOSE (UA) NEG (NEGATIVE); URINE LEUKOCYTE ESTERASE TRACE Leu/uL (Negative); URINE PROTEIN NEGATIVE (NEGATIVE); URINE UROBILINOGEN 0.2-1.0 mg/dL (0.2-1.0)
[2018-04-25 22:45] VITALS: BP 148/75; PULSE 74; TEMP 98.5; O2SAT 97
== END 2018-04-25 22:25 | disposition home or self-care (01) ==
LOC: H.ER 12:19
DX: K29.70 Gastritis, unspecified, without bleeding (principal); K52.9 Noninfective gastroenteritis and colitis, unspecified; K59.00 Constipation, unspecified; I10 Essential (primary) hypertension; Z86.59 Personal history of other mental and behavioral disorders; E78.00 Pure hypercholesterolemia, unspecified
CPT/HCPCS: 74177; 80053; 81003; 83690; 85025; 87045; 87230; 99284; J7030; Q9967

== ENCOUNTER 2018-08-16 03:29 | Inpatient (IN) | payer MEDICARE, OTHER ==
[2018-08-16 03:29] VITALS: BMI 33.6
[2018-08-16] MEDS ORDERED: Iohexol 240 (50 ml) PO ONE (04:05)
[2018-08-16] MEDS ORDERED: Sodium Chloride 0.9% 1,000 ML IV STA (04:07)
[2018-08-16] MEDS ORDERED: Morphine 4 MG/ML VIAL IVP STA (04:07)
--- NOTE | 2018-08-16 04:11 | ED PDOC ---
HPI: Abdomen Chief Complaint (Provider): ABD PAIN History Per: Patient History/Exam Limitations: no limitations Onset/Duration Of Symptoms: Hrs Outside of [place] travel?: No Current Symptoms Are (Timing): Still Present Pain Scale Rating Of: 9 Location Of Pain/Discomfort: Diffuse Quality Of Discomfort: "Pain" Associated Symptoms: denies: Fever, Chills, Nausea, Vomiting, Diarrhea, Urinary Symptoms Exacerbating Factors: denies: None Alleviating Factors: denies: None Additional History Per: Patient Additional Complaint(s): 77 Y/O FEMALE C/O DIFFUSE ABD PAIN SINCE 10PM THIS EVENING. SHE STATES SHE HAS A HX OF COLITIS AND LYMPHOMA FOR WHICH SHE HAD CHEMO ON SATURDAY. PATIENT STATES SIMILAR PAIN OCCURRED WHEN SHE HAD COLITIS. PATIENT HAS DINNER AT 6PM AND FELT FINE UNTIL 10PM. PATIENT DENIES FEVER, NAUSEA, VOMITING, URINARY COMPLAINTS, DIARRHEA. <Delmy Keita - Last Filed: 08/16/18 06:06> <Hayde Dickey - Last Filed: 08/16/18 07:53> Time Seen by Provider: 08/16/18 03:46 Chief Complaint (Nursing): Abdominal Pain Past Medical History Reviewed: Historical Data, Nursing Documentation, Vital Signs Vital Signs: Last Vital Signs Temp 97.7 F 08/16/18 03:32 Pulse 77 08/16/18 03:32 Resp 18 08/16/18 03:32 BP 167/83 H 08/16/18 03:32 Pulse Ox 98 08/16/18 03:32 - Medical History PMH: Anxiety, Arthritis, Depression, HTN, Hypercholesterolemia Denies: Chronic Kidney Disease - Surgical History Surgical History: No Surg Hx - Family History Family History: States: Unknown Family Hx - Living Arrangements Living Arrangements: With Family <Delmy Keita - Last Filed: 08/16/18 06:06> Vital Signs: Last Vital Signs Temp 97.7 F 08/16/18 03:32 Pulse 68 08/16/18 06:08 Resp 18 08/16/18 03:32 BP 167/83 H 08/16/18 03:32 Pulse Ox 98 08/16/18 06:08 <Hayde Dickey - Last Filed: 08/16/18 07:53> - Home Medications Home Medications: Ambulatory Orders Medication Instructions Recorded Acetaminophen [Tylenol Arthritis] 1 tab PO PRN PRN 11/06/17 Alprazolam [Xanax] 0.5 mg PO DAILY PRN 06/18/18 Atorvastatin [Lipitor] 20 mg PO DAILY 06/18/18 Ferrous Sulfate [Feosol] 325 mg PO DAILY 06/18/18 Icosapent Ethyl [Vascepa] 2 tab PO BID 06/18/18 Alendronate [Fosamax] 70 mg PO DAILY 08/13/18 Ergocalciferol (Vitamin D2) 50,000 unit PO QWK 08/13/18 [Vitamin D2] - Allergies Allergies/Adverse Reactions: Allergies Allergy/AdvReac Type Severity Reaction Status Date / Time [place] Allergy RASH Uncoded 04/25/18 15:46 Review of Systems ROS Statement: Except As Marked, All Systems Reviewed And Found Negative Constitutional: Negative for: Fever, Chills, Weakness, Malaise Cardiovascular: Negative for: Chest Pain Gastrointestinal: Positive for: Abdominal Pain. Negative for: Nausea, Vomiting <BossmanDelmy - Last Filed: 08/16/18 06:06> Physical Exam - Reviewed Nursing Documentation Reviewed: Yes Vital Signs Reviewed: Yes - Physical Exam Appears: Positive for: Well, Non-toxic, No Acute Distress Head Exam: Positive for: ATRAUMATIC, NORMAL INSPECTION, NORMOCEPHALIC Skin: Positive for: Normal Color, Warm, Dry Eye Exam: Positive for: Normal appearance, PERRL ENT: Positive for: Normal ENT Inspection Neck: Positive for: Normal, Painless ROM, Supple Cardiovascular/Chest: Positive for: Regular Rate, Rhythm Respiratory: Positive for: CNT, Normal Breath Sounds Pulses-Radial (L): 2+ Pulses-Radial (R): 2+ Gastrointestinal/Abdominal: Positive for: Normal Exam, Bowel Sounds, Soft, Tenderness (DIFFUSE TENDERNESS) Back: Positive for: Normal Inspection Extremity: Positive for: Normal ROM Neurological/Psych: Positive for: Awake, Alert, Normal Tone, Oriented <BossmanDelmy - Last Filed: 08/16/18 06:06> - Laboratory Results Result Diagrams: 08/16/18 04:56 08/16/18 04:56 - ECG ECG: Positive for: Interpreted By Wy ECG Rhythm: Positive for: Normal QRS Interpretation Of Abn EKG: viewed and interpretated by dr. dickey. Rate: 68 O2 Sat by Pulse Oximetry: 98 Pulse Ox Interpretation: Normal <Delmy Keita - Last Filed: 08/16/18 06:06> - Laboratory Results Result Diagrams: 08/16/18 04:56 08/16/18 06:10 Lab Results: pO2 24 mm/Hg (30-55) L 08/16/18 04:57 VBG pH 7.34 (7.32-7.43) 08/16/18 04:57 VBG pCO2 57 mmHg (40-60) 08/16/18 04:57 VBG HCO3 26.0 mmol/L 08/16/18 04:57 VBG Total CO2 32.5 mmol/L (22-28) H 08/16/18 04:57 VBG O2 Sat (Calc) 36.4 % (40-65) L 08/16/18 04:57 VBG Base Excess 3.5 mmol/L (0.0-2.0) H 08/16/18 04:57 VBG Potassium 4.7 mmol/L (3.6-5.2) 08/16/18 04:57 Sodium 139.0 mmol/L (132-148) 08/16/18 04:57 Chloride 104.0 mmol/L (98-107) 08/16/18 04:57 Glucose 119 mg/dL (65-105) H 08/16/18 04:57 Lactate 2.6 mmol/L (0.7-2.1) H 08/16/18 04:57 FiO2 21.0 % 08/16/18 04:57 Troponin I < 0.0120 ng/mL (0.00-0.120) 08/16/18 04:56 Total Bilirubin 0.7 mg/dl (0.2-1.3) 08/16/18 06:10 AST 21 U/L (14-36) 08/16/18 06:10 ALT 26 U/L (9-52) 08/16/18 06:10 Alkaline Phosphatase 95 U/L (38-126) 08/16/18 06:10 Total Protein 6.8 G/DL (6.3-8.2) 08/16/18 06:10 Albumin 4.2 g/dL (3.5-5.0) 08/16/18 06:10 Globulin 2.5 gm/dL (2.2-3.9) 08/16/18 06:10 Albumin/Globulin Ratio 1.7 (1.0-2.1) 08/16/18 06:10 Lipase 56 U/L (23-300) 08/16/18 06:10 Urine Color Yellow (YELLOW) 08/16/18 04:56 Urine Clarity Slighty-cloudy (Clear) 08/16/18 04:56 Urine pH 7.0 (5.0-8.0) 08/16/18 04:56 Ur Specific Hob[place] 1.015 (1.003-1.030) 08/16/18 04:56 Urine Protein Negative mg/dL (NEGATIVE) 08/16/18 04:56 Urine Glucose (UA) Neg mg/dL (NEGATIVE) 08/16/18 04:56 Urine Ketones Negative mg/dL (NEGATIVE) 08/16/18 04:56 Urine Blood Negative (NEGATIVE) 08/16/18 04:56 Urine Nitrate Positive (NEGATIVE) H 08/16/18 04:56 Urine Bilirubin Negative (NEGATIVE) 08/16/18 04:56 Urine Urobilinogen 0.2-1.0 mg/dL (0.2-1.0) 08/16/18 04:56 Ur Leukocyte Esterase Trace Dusty/uL (Negative) 08/16/18 04:56 Urine RBC (Auto) 3 /hpf (0-3) 08/16/18 04:56 Urine Microscopic WBC 6 /hpf (0-5) H 08/16/18 04:56 Ur Squamous Epith Cells 1 /hpf (0-5) 08/16/18 04:56 Urine Bacteria Rare (<OCC) 08/16/18 04:56 <Hayde Dickey - Last Filed: 08/16/18 07:53> Medical Decision Making Medical Decision Making: --CBC --CMP --LIPASE --EKG --CT ABD/PELVIS --UA 05:56: UA positive for nitrates and trace lueks. Rocephin 1gm IV,. urine C&S to be sent. 0600: Report given to Dr. Dickey. Follow-up on Ct report. for disposition. <Delmy Keita - Last Filed: 08/16/18 06:06> Medical Decision Makin CT Abdomen/Pelvis IMPRESSION: 8mm left renal nonobstructing stone. Unchanged. Large sliding hiatal hernia, unchanged. Chronic atrophy of the left kidney, unchanged. Cholelithiasis. Distended gallbladder. Diffuse thickening of the gallbladder. Findings are suggestive of mild acute calculous cholecystitis. No associated perforation or abscess formation. Sonographic evaluation is suggested. Mild splenomegaly, unchanged. Fluid-filled small and proximal large bowel. Ileus versus developing enteritis. Moderate diffuse spondylosis. 0751 Labs reviewed, patient with UTI and already started on antibiotics; cultures sent as well Discussed case with Dr. Burr, patient is private patient of Dr. Allen, patient to be admitted under his service due to UTI and need for IV antibiotics. Scribe Attestation: Documented by Kenyatta Medina acting as a scribe for Hayde Dickey MD. Provider Attestation: All medical record entries made by the Scribe were at my direction and personally dictated by me. I have reviewed the chart and agree that the record accurately reflects my personal performance of the history, physical exam, medical decision making, and the department course for this patient. I have also personally directed, reviewed, and agree with the discharge instructions and disposition. <Hayde Dickey - Last Filed: 08/16/18 07:53> Disposition - Patient ED Disposition Is Patient to be Admitted: Transfer of Care - Disposition Disposition Time: 06:00 - POA Present On Arrival: None <Delmy Keita - Last Filed: 08/16/18 06:06> - Patient ED Disposition Is Patient to be Admitted: Yes - Disposition Disposition Time: 07:52 <Hayde Dickey - Last Filed: 08/16/18 07:53> - Clinical Impression Clinical Impression: Abdominal pain, Urinary tract infection - Disposition Condition: STABLE Forms: [employer] ([place])
[2018-08-16] MEDS ORDERED: Morphine 4 MG/ML VIAL ONE (04:15)
[2018-08-16 05:00] LABS: VENOUS BLOOD GAS BASE EXCESS 3.5 mmol/L (0.0-2.0); VENOUS BLOOD GAS PCO2 57 mmHg (40-60); VENOUS BLOOD GAS PO2 24 mm/Hg (30-55); VENOUS BLOOD PH 7.34 (7.32-7.43)
[2018-08-16 05:08] LABS: BASO % 0.4 % (0.0-2.0); EOS % 0.2 % (0.0-4.0); HEMOGLOBIN 12.5 g/dL (12.0-16.0); LYMPH # 1.4 K/uL (1.0-4.3); LYMPH % 13.3 % (20.0-40.0); MEAN CELL VOLUME 78.2 fl (81.0-99.0); MEAN CORPUSCULAR HEMOGLOBIN 24.9 pg (27.0-31.0); MEAN CORPUSCULAR HGB CONC 31.8 g/dL (33.0-37.0); MEAN PLATELET VOLUME 9.1 fl (7.2-11.7); MONO # 0.5 K/uL (0.0-0.8); NEUT # 8.7 K/uL (1.8-7.0); NEUT % 81.1 % (50.0-75.0); NRBC % 0.1 % (0.0-0.0); RBC 5.02 Mil/uL (3.80-5.20); RED CELL DISTRIBUTION WIDTH 18.1 % (11.5-14.5); WHITE BLOOD COUNT 10.7 K/uL (4.8-10.8)
[2018-08-16 05:15] LABS: SQUAMOUS EPITHIAL 1 /hpf (0-5); URINE BACTERIA RARE (<OCC); URINE BILIRUBIN NEGATIVE (NEGATIVE); URINE BLOOD NEGATIVE (NEGATIVE); URINE CLARITY SLIGHTY-CLOUDY (Clear); URINE COLOR YELLOW (YELLOW); URINE GLUCOSE (UA) NEG (NEGATIVE); URINE LEUKOCYTE ESTERASE TRACE Leu/uL (Negative); URINE PROTEIN NEGATIVE (NEGATIVE); URINE UROBILINOGEN 0.2-1.0 mg/dL (0.2-1.0)
[2018-08-16 05:21] LABS: ALB/GLOB RATIO 1.6 (1.0-2.1); ALBUMIN 4.7 g/dL (3.5-5.0); ALT/SGPT 20 U/L (9-52); AST/SGOT 28 U/L (14-36); BLOOD UREA NITROGEN 18 mg/dl (7-17); CALCIUM 11.2 mg/dL (8.4-10.2); GFR NON-AFRICAN AMERICAN 54
[2018-08-16] MEDS ORDERED: cefTRIAXone (Rocephin) 1 gm Inj ONE (06:28)
[2018-08-16 06:30] LABS: ALB/GLOB RATIO 1.7 (1.0-2.1); ALBUMIN 4.2 g/dL (3.5-5.0); ALT/SGPT 26 U/L (9-52); AST/SGOT 21 U/L (14-36); BLOOD UREA NITROGEN 18 mg/dl (7-17); CALCIUM 10.6 mg/dL (8.4-10.2); GFR NON-AFRICAN AMERICAN 54; LIPASE 56 U/L (23-300)
[2018-08-16] MEDS ORDERED: Sodium Chloride 0.9% 50 ML IV ONE (06:37)
[2018-08-16] MEDS ORDERED: Iohexol 300 100 ML IJ ONE (06:37)
[2018-08-16] MEDS ORDERED: Ergocalciferol 50,000 Intl Units Cap PO SCH (13:00)
--- NOTE | 2018-08-16 13:28 | CT ---
Date of service: 08/16/2018 PROCEDURE: CT abdomen and pelvis HISTORY: Abdominal pain COMPARISON: Comparison made with prior CT scan abdomen pelvis 04/25/2018. TECHNIQUE: Contiguous helical/transaxial sections of the abdomen pelvis performed following oral and intravenous injection of approximately 95 cc Omnipaque 300 contrast material. Additional 2D sagittal and coronal reformats generated. Radiation dose: Total exam DLP = 819.97 mGy-cm. This CT exam was performed using one or more of the following dose reduction techniques: Automated exposure control, adjustment of the mA and/or kV according to patient size, and/or use of iterative reconstruction technique. FINDINGS: LOWER THORAX: There is a large hiatal hernia. Heart size is mildly enlarged. No significant pericardial effusion. Mild atelectasis left lung base abutting the aforementioned hiatal hernia there also appears to be some linear scarring changes both lung bases including the middle lobe and lingular regions. LIVER: Liver exhibits normal size measuring approximately 17.5 cm in CC dimension. Moderate fatty hepatic infiltration. GALLBLADDER AND BILE DUCTS: Cholelithiasis within a distended gallbladder.. Questionable minimal gallbladder wall thickening correlation with HIDA scan may be prudent PANCREAS: Pancreas atrophic and fatty replaced. SPLEEN: Spleen is mildly enlarged measuring approximately 13 point 5 cm in greatest dimension. ADRENALS: There appears to be mild enlargement of the left adrenal gland. Right adrenal gland unremarkable. KIDNEYS AND URETERS: Left kidney is significantly atrophic with dystrophic type calcification or nonobstructing calculus along the anterior inferior cortex. There is a small approximately 14.8 mm rounded low-attenuation focus anterior inferior aspect right kidney that could represent a hyperdense cyst with Hounsfield units in the mid 40s. Follow-up ultrasound recommended to exclude a solid lesion. There may also be a tiny cortical cyst lateral midpole right kidney is well. VASCULATURE: Unremarkable. No aortic aneurysm. Minimal aortic atherosclerotic calcification or mural plaque present. BOWEL: Evaluation of the bowel is somewhat limited due to incomplete opacification. As mentioned above, there is a very large hiatal hernia. Visualized loops of proximal small bowel exhibit normal contour and caliber however there are multiple minimally distended fluid-filled loops of distal small bowel with slight wall thickening. Findings likely represent a nonspecific enteritis or diarrheal illness. Questionable tiny diverticula arising from a loop of distal small bowel best seen on axial image number 139 through 141. There also appears to be small amount of fluid adjacent to the inferior margin of the cecum which is distended. More formed -desiccated appearing stool in the hepatic flexure and transverse colon. Most of the left colon is collapsed. Note made of what appears to represent at least 2 anastomoses 1 at the level of the distal descending/sigmoid colon junction and another in the mid sigmoid region appear clinical correlation with surgical history is recommended.. APPENDIX: Appendix is not positively identified although no definitive inflammatory changes seen in the right lower quadrant to suggest an acute appendicitis. PERITONEUM: No gross free intraperitoneal air. Small fat containing umbilical hernia. LYMPH NODES: There are a multiple small to borderline nonspecific retroperitoneal.. There are also a few scattered small to borderline enlarged mesenteric lymph nodes the largest in the right lower quadrant of the abdomen measuring approximately 16 mm BLADDER: Urinary bladder is physiologically distended. No evidence of intraluminal urinary bladder calculi. REPRODUCTIVE: Unremarkable as visualized BONES: Mild multilevel degenerative spondylosis of the thoracic spine.. There are to somewhat corrugated low-attenuation lesions, one in the T8 and another in the L2 segments likely representing hemangiomas former slightly larger than latter.. There is also slight deformity superior L2 endplate. OTHER FINDINGS: None. IMPRESSION: Moderate fatty hepatic infiltration. Tiny low-attenuation focus right lobe liver too small to characterize though this focus although this probably represents a small cyst with negative single digits Hounsfield units. Splenomegaly. Cholelithiasis within a distended gallbladder.. Questionable minimal gallbladder wall thickening correlation with HIDA scan may be prudent There are mild mildly distended fluid-filled loops of distal small bowel with fluid seen in the cecum and proximal ascending colon. Findings may represent a nonspecific enteritis or diarrheal illness. Probable tiny diverticulum arising from a loop of distal small bowel.. Small amount of free fluid seen adjacent to the cecum There also at least 2 anastomosis seen in the distal descending and sigmoid colon regions as detailed above. Marked atrophy of the left kidney with the dystrophic type calcification and/or nonobstructing calculus along the inferior anterior cortex.. Questionable hyperdense cyst inferior aspect right kidney. Consider follow-up renal ultrasound. Another tiny cortical cyst lateral aspect midpole right kidney may be present as well Multiple small to borderline retroperitoneal lymph nodes.
--- NOTE | 2018-08-16 15:04 | RAD ---
Date of service: 08/16/2018 HISTORY: Abdominal pain COMPARISON: Comparison made with concurrent CT scan of the abdomen and pelvis which image both lung bases. Comparison also made with prior chest radiograph 10/24/2017.. TECHNIQUE: Chest PA and lateral views FINDINGS: In situ right-sided MediPort with tip in the SVC LUNGS: Mild left basilar atelectasis abutting the peripheral margin of the hiatal hernia. PLEURA: No significant pleural effusion identified. No pneumothorax apparent. CARDIOVASCULAR: No aortic atherosclerotic calcification present. Normal cardiac size. No pulmonary vascular congestion. OSSEOUS STRUCTURES: No significant abnormalities. VISUALIZED UPPER ABDOMEN: Calcified cholelithiasis not appreciated on this study compared to high-resolution CT scan of the abdomen and pelvis OTHER FINDINGS: Large hiatal hernia IMPRESSION: Large hiatal hernia with mild left basilar atelectasis adjacent to the left peripheral margin of the hiatal hernia
[2018-08-16] MEDS ORDERED: ICOSAPENT ETHYL PO SCH (17:00)
--- NOTE | 2018-08-16 17:29 | CARD ---
APPROVED REPORT Date of service: 08/16/2018 EKG Measurement Heart [id number] <Conclusion> Normal sinus rhythm Inferior infarct, age undetermined Abnormal ECG
--- NOTE | 2018-08-17 00:30 | CP.PCM.CON ---
History of Present Illness - History of Present Illness History of Present Illness: Covering Dr. 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 She notes she has had similar abdominal pain in the past related to colitis. She denies fevers and chills. Past medical history: colitis, CLL/SLL Past surgical history: Portacath Family history: Denies hematologic and oncologic problems Social history: Denies tobacco, alcohol, and illicit drug use. Allergies: NKDA Review of systems: All remaining ROS including HEENT, cardiovascular, respiratory, gastrointestinal, genitourinary, musculoskeletal, dermatologic, neurologic, and psychiatric are negative unless mentioned in the HPI. Past Patient History - Past Medical History & Family History Past Medical History?: Yes - Past Social History Smoking Status: Never Smoked - CARDIAC Hx Cardiac Disorders: Yes (HTN, high cholesterol) - PULMONARY Hx Respiratory Disorders: No - NEUROLOGICAL Hx Neurological Disorder: No - HEENT Hx HEENT Problems: Yes Hx Cataracts: Yes - RENAL Hx Chronic Kidney Disease: No - ENDOCRINE/METABOLIC Hx Endocrine Disorders: No - HEMATOLOGICAL/ONCOLOGICAL Hx Blood Disorders: Yes (non-Hodgskin's lymphoma) - INTEGUMENTARY Hx Dermatological Problems: No - MUSCULOSKELETAL/RHEUMATOLOGICAL Hx Arthritis: Yes Hx Falls: No - GASTROINTESTINAL Hx Gastrointestinal Disorders: Yes Hx Bowel Surgery: Yes (for intestinal-bladder fistula) Hx Colitis: Yes - GENITOURINARY/GYNECOLOGICAL Hx Genitourinary Disorders: Yes Hx Uterine Cancer: Yes - PSYCHIATRIC Hx Psychophysiologic Disorder: Yes (anxiety, depression) - SURGICAL HISTORY Hx Surgeries: Yes Hx Cataract Extraction: Yes Other/Comment: Hx Intestinal Sx (fistula) - ANESTHESIA Hx Anesthesia: Yes Hx Anesthesia Reactions: No Hx Malignant Hyperthermia: No Meds Allergies/Adverse Reactions: Allergies Allergy/AdvReac Type Severity Reaction Status Date / Time [place] Allergy RASH Uncoded 04/25/18 15:46 - Medications Medications: Current Medications Acetaminophen (Tylenol 325mg Tab) 650 mg PO DAILY PRN PRN Reason: Arthritis Alendronate Sodium (Fosamax) 70 mg PO QWK [facility] Alprazolam (Xanax) 0.5 mg PO DAILY PRN PRN Reason: Anxiety Atorvastatin Calcium (Lipitor) 20 mg PO DAILY [facility] Ergocalciferol (Drisdol 50,000 Intl Units Cap) 1 cap PO QWK [facility] Home Med (Icosapent Ethyl [Vascepa]) 2 tab PO BID [facility] Pantoprazole Sodium (Protonix Ec Tab) 40 mg PO DAILY [facility] Physical Exam - Head Exam Head Exam: ATRAUMATIC - Eye Exam Eye Exam: Normal appearance - ENT Exam ENT Exam: Mucous Membranes Dry - Respiratory Exam Respiratory Exam: NORMAL BREATHING PATTERN - Cardiovascular Exam Cardiovascular Exam: +S1, +S2 - GI/Abdominal Exam GI & Abdominal Exam: Normal Bowel Sounds - Extremities Exam Extremities exam: Positive for: normal inspection - Neurological Exam Neurological exam: Oriented x3 - Psychiatric Exam Psychiatric exam: Normal Affect, Normal Mood - Skin Skin Exam: Warm Results - Vital Signs Recent Vital Signs: Last Vital Signs Temp 97.4 F L 08/16/18 16:31 Pulse 70 08/16/18 16:31 Resp 18 08/16/18 16:31 BP 153/85 H 08/16/18 16:31 Pulse Ox 96 08/16/18 16:31 - Labs Result Diagrams: 08/16/18 04:56 08/16/18 06:10 Labs: Laboratory Results - last 24 hr 08/16/18 08/16/18 08/16/18 04:56 04:56 04:56 WBC 10.7 D RBC 5.02 Hgb 12.5 Hct 39.3 MCV 78.2 L MCH 24.9 L MCHC 31.8 L RDW 18.1 H Plt Count 178 MPV 9.1 Neut % (Auto) 81.1 H Lymph % (Auto) 13.3 L [place] % (Auto) 5.0 Eos % (Auto) 0.2 Baso % (Auto) 0.4 Neut # (Auto) 8.7 H Lymph # (Auto) 1.4 [place] # (Auto) 0.5 Eos # (Auto) 0.0 Baso # (Auto) 0.0 pO2 VBG pH VBG pCO2 VBG HCO3 VBG Total CO2 VBG O2 Sat (Calc) VBG Base Excess VBG Potassium Glucose Lactate FiO2 Sodium 140 Potassium 5.2 H Chloride 105 Carbon Dioxide 23 Anion Gap 17 BUN 18 H Creatinine 1.0 Est GFR ( Amer) > 60 Est GFR (Non-Af Amer) 54 Random Glucose 119 H Calcium 11.2 H Total Bilirubin 0.9 AST 28 ALT 20 Alkaline Phosphatase 95 Troponin I < 0.0120 Total Protein 7.6 Albumin 4.7 Globulin 2.9 Albumin/Globulin Ratio 1.6 Lipase Venous Blood Potassium Urine Color Yellow Urine Clarity Slighty-cloudy Urine pH 7.0 Ur Specific [place] 1.015 Urine Protein Negative Urine Glucose (UA) Neg Urine Ketones Negative Urine Blood Negative Urine Nitrate Positive H Urine Bilirubin Negative Urine Urobilinogen 0.2-1.0 Ur Leukocyte Esterase Trace Urine RBC (Auto) 3 Urine Microscopic WBC 6 H Ur Squamous Epith Cells 1 Urine Bacteria Rare 08/16/18 08/16/18 04:57 06:10 WBC RBC Hgb Hct MCV MCH MCHC RDW Plt Count MPV Neut % (Auto) Lymph % (Auto) [place] % (Auto) Eos % (Auto) Baso % (Auto) Neut # (Auto) Lymph # (Auto) [place] # (Auto) Eos # (Auto) Baso # (Auto) pO2 24 L VBG pH 7.34 VBG pCO2 57 VBG HCO3 26.0 VBG Total CO2 32.5 H VBG O2 Sat (Calc) 36.4 L VBG Base Excess 3.5 H VBG Potassium 4.7 Glucose 119 H Lactate 2.6 H FiO2 21.0 Sodium 139.0 139 Potassium 5.1 H Chloride 104.0 104 Carbon Dioxide 25 Anion Gap 15 BUN 18 H Creatinine 1.0 Est GFR ( Amer) > 60 Est GFR (Non-Af Amer) 54 Random Glucose 126 H Calcium 10.6 H Total Bilirubin 0.7 AST 21 ALT 26 Alkaline Phosphatase 95 Troponin I Total Protein 6.8 Albumin 4.2 Globulin 2.5 Albumin/Globulin Ratio 1.7 Lipase 56 Venous Blood Potassium 4.7 Urine Color Urine Clarity Urine pH Ur Specific [place] Urine Protein Urine Glucose (UA) Urine Ketones Urine Blood Urine Nitrate Urine Bilirubin Urine Urobilinogen Ur Leukocyte Esterase Urine RBC (Auto) Urine Microscopic WBC Ur Squamous Epith Cells Urine Bacteria Assessment & Plan (1) NHL (non-Hodgkin's lymphoma) Assessment and Plan: CLL/SLL s/p chemotherapy and on maintenance rituximab; last given 08/13/18 outpatient f/u with Dr. Schulz Thank you for this interesting consult. Status: Acute
[2018-08-17] MEDS: Pantoprazole 40 mg EC Tab PO SCH (09:36)
[2018-08-17] MEDS: metroNIDAZOLE 500mg/100ml NS 100 ML IVPB SCH ×2 (14:03→17:00)
[2018-08-17] MEDS: Piperacillin/Tazobact 3.375 GM in Sodium Chloride 0.9% 100 ML IVPB SCH (16:57)
--- NOTE | 2018-08-17 19:24 | CP.PCM.CON ---
History of Present Illness - History of Present Illness History of Present Illness: Surgery: Dr. Parry Reason for consult: cholelithiasis HPI: Patient is a 77 y/o female with CLL on rituximab maintenance therapy presented yesterday complaining of diffuse abdominal pain that started around 10 pm last night. She described the pain as cramp like and diffuse. She reports having similar pain in the past in which she was diagnosed with colitis while she was receiving chemo. She denies n/v/f/c. She denies diarrhea or constipation. She reports last BM this am which was normal, denies blood. As of now, she states her abdominal pain has completely resolved. Patient underwent CT scan in ER which showed enteritis and cholelithiasis. Patient also found to have UTI. PMH: CLL, cholelithiasis, colitis PSH: chemoport Social: denies ETOH, tobacco, drug use Review of Systems - Constitutional Constitutional: absent: Anorexia, Chills, Fever - EENT Eyes: absent: Blurred Vision, Change in Vision Ears: absent: Dizziness Nose/Mouth/Throat: absent: Nasal Congestion, Sinus Pain - Cardiovascular Cardiovascular: absent: Chest Pain, Dyspnea - Respiratory Respiratory: absent: Cough, Wheezing - Gastrointestinal Gastrointestinal: Abdominal Pain, Cramping. absent: Bloating, Constipation, Diarrhea, Excessive Flatus, Hematochezia, Loose Stools - Genitourinary Genitourinary: absent: Hematuria, Pyuria - Integumentary Integumentary: absent: Rash, Unusual Bruising - Neurological Neurological: absent: Syncope, Weakness - Psychiatric Psychiatric: absent: Anxiety, Depression - Endocrine Endocrine: absent: Polydipsia, Polyphagia - Hematologic/Lymphatic Hematologic: absent: Easy Bleeding, Easy Bruising Past Patient History - Past Medical History & Family History Past Medical History?: Yes - Past Social History Smoking Status: Never Smoked - CARDIAC Hx Cardiac Disorders: Yes (HTN, high cholesterol) - PULMONARY Hx Respiratory Disorders: No - NEUROLOGICAL Hx Neurological Disorder: No - HEENT Hx HEENT Problems: Yes Hx Cataracts: Yes - RENAL Hx Chronic Kidney Disease: No - ENDOCRINE/METABOLIC Hx Endocrine Disorders: No - HEMATOLOGICAL/ONCOLOGICAL Hx Blood Disorders: Yes (non-Hodgskin's lymphoma) - INTEGUMENTARY Hx Dermatological Problems: No - MUSCULOSKELETAL/RHEUMATOLOGICAL Hx Arthritis: Yes Hx Falls: No - GASTROINTESTINAL Hx Gastrointestinal Disorders: Yes Hx Bowel Surgery: Yes (for intestinal-bladder fistula) Hx Colitis: Yes - GENITOURINARY/GYNECOLOGICAL Hx Genitourinary Disorders: Yes Hx Uterine Cancer: Yes - PSYCHIATRIC Hx Psychophysiologic Disorder: Yes (anxiety, depression) - SURGICAL HISTORY Hx Surgeries: Yes Hx Cataract Extraction: Yes Other/Comment: Hx Intestinal Sx (fistula) - ANESTHESIA Hx Anesthesia: Yes Hx Anesthesia Reactions: No Hx Malignant Hyperthermia: No Meds Allergies/Adverse Reactions: Allergies Allergy/AdvReac Type Severity Reaction Status Date / Time [place] Allergy RASH Uncoded 04/25/18 15:46 - Medications Medications: Current Medications Acetaminophen (Tylenol 325mg Tab) 650 mg PO DAILY PRN PRN Reason: Arthritis Alendronate Sodium (Fosamax) 70 mg PO QWK [facility] Alprazolam (Xanax) 0.5 mg PO DAILY PRN PRN Reason: Anxiety Last Admin: 08/17/18 09:42 Dose: 0.5 mg Atorvastatin Calcium (Lipitor) 20 mg PO DAILY [facility] Last Admin: 08/17/18 09:35 Dose: 20 mg Ergocalciferol (Drisdol 50,000 Intl Units Cap) 1 cap PO QWK [facility] Home Med (Icosapent Ethyl [Vascepa]) 2 tab PO BID [facility] Metronidazole (Flagyl 500mg/100ml Ns) 100 mls @ 100 mls/hr IVPB Q8 [facility]; Protocol Last Admin: 08/17/18 14:03 Dose: 100 mls/hr Piperacillin Sod/Tazobactam (Sod 3.375 gm/ Sodium Chloride) 100 mls @ 100 mls/hr IVPB Q8 [facility]; Protocol Last Admin: 08/17/18 16:57 Dose: 100 mls/hr Losartan Potassium (Cozaar) 25 mg PO DAILY [facility] Last Admin: 08/17/18 14:06 Dose: 25 mg Pantoprazole Sodium (Protonix Ec Tab) 40 mg PO DAILY [facility] Last Admin: 08/17/18 09:36 Dose: 40 mg Physical Exam - Constitutional Appears: Non-toxic, No Acute Distress - Head Exam Head Exam: ATRAUMATIC, NORMOCEPHALIC - Eye Exam Eye Exam: EOMI, Normal appearance - ENT Exam ENT Exam: Mucous Membranes Moist - Respiratory Exam Respiratory Exam: NORMAL BREATHING PATTERN. absent: Respiratory Distress - Cardiovascular Exam Cardiovascular Exam: REGULAR RHYTHM. absent: Tachycardia - GI/Abdominal Exam GI & Abdominal Exam: Soft. absent: Distended, Guarding, Rebound, Rigid, Tenderness - Extremities Exam Extremities exam: Positive for: normal inspection. Negative for: calf tenderness - Neurological Exam Neurological exam: Alert, Oriented x3 - Psychiatric Exam Psychiatric exam: Normal Affect, Normal Mood - Skin Skin Exam: Dry, Normal Color, Warm Results - Vital Signs Recent Vital Signs: Last Vital Signs Temp 97.6 F 08/17/18 16:25 Pulse 80 08/17/18 16:25 Resp 20 08/17/18 16:25 BP 122/76 08/17/18 16:25 Pulse Ox 96 08/17/18 16:25 - Labs Result Diagrams: 08/16/18 04:56 08/16/18 06:10 Assessment & Plan - Assessment and Plan (Free Text) Assessment: 77 y/o female w/ abdominal pain, resolved found to have enteritis, UTI and cholelithiasis Plan: -cont abx per primary -f/u ultrasound of gallbladder -am labs -most likely related to enteritis and UTI -pending u/s determines further surgical recs -further recs per Dr. Parry [facility] PGY4
[2018-08-18] MEDS: Piperacillin/Tazobact 3.375 GM in Sodium Chloride 0.9% 100 ML IVPB SCH ×3 (00:05→16:23)
[2018-08-18] MEDS: metroNIDAZOLE 500mg/100ml NS 100 ML IVPB SCH ×3 (01:22→16:23)
--- NOTE | 2018-08-18 08:14 | CP.PCM.PN ---
<Dayanna Black - Last Filed: 08/18/18 08:11> Subjective - Date & Time of Evaluation Date of Evaluation: 08/18/18 Time of Evaluation: 08:11 - Subjective Subjective: Surgery: Dr. Parry 77 y/o female with abdominal pain, resolved found to have enteritis, UTI and cholelithiasis. - Flatus - BM today. states she feels well and is in no pain. Denies f/n/v.She denies diarrhea or constipation. She reports last BM yesterday mornign which was normal, denies blood. As of now, she states her abdominal pain has completely resolved. Objective - Vital Signs/Intake and Output Vital Signs (last 24 hours): Temp Pulse Resp BP Pulse Ox 97.5 F L 76 19 116/82 95 08/18/18 07:44 08/18/18 07:44 08/18/18 07:44 08/18/18 07:44 08/18/18 07:44 - Medications Medications: Current Medications Acetaminophen (Tylenol 325mg Tab) 650 mg PO DAILY PRN PRN Reason: Arthritis Alendronate Sodium (Fosamax) 70 mg PO QWK [facility] Alprazolam (Xanax) 0.5 mg PO DAILY PRN PRN Reason: Anxiety Last Admin: 08/17/18 09:42 Dose: 0.5 mg Atorvastatin Calcium (Lipitor) 20 mg PO DAILY [facility] Last Admin: 08/17/18 09:35 Dose: 20 mg Ergocalciferol (Drisdol 50,000 Intl Units Cap) 1 cap PO QWK [facility] Home Med (Icosapent Ethyl [Vascepa]) 2 tab PO BID [facility] Metronidazole (Flagyl 500mg/100ml Ns) 100 mls @ 100 mls/hr IVPB Q8 [facility]; Protoco l Last Admin: 08/18/18 01:22 Dose: 100 mls/hr Piperacillin Sod/Tazobactam (Sod 3.375 gm/ Sodium Chloride) 100 mls @ 100 mls/hr IVPB Q8 [facility]; Protocol Last Admin: 08/18/18 00:05 Dose: 100 mls/hr Losartan Potassium (Cozaar) 25 mg PO DAILY [facility] Last Admin: 08/17/18 14:06 Dose: 25 mg Pantoprazole Sodium (Protonix Ec Tab) 40 mg PO DAILY [facility] Last Admin: 08/17/18 09:36 Dose: 40 mg - Labs Labs: 08/16/18 04:56 08/16/18 06:10 - Constitutional Appears: Well, Non-toxic, No Acute Distress - Head Exam Head Exam: ATRAUMATIC, NORMOCEPHALIC - Eye Exam Eye Exam: Normal appearance - ENT Exam ENT Exam: Mucous Membranes Moist - Respiratory Exam Respiratory Exam: NORMAL BREATHING PATTERN - Cardiovascular Exam Cardiovascular Exam: REGULAR RHYTHM, +S1, +S2 - GI/Abdominal Exam GI & Abdominal Exam: Soft. absent: Distended, Guarding, Tenderness - Neurological Exam Neurological Exam: Alert, Awake, Oriented x3 - Psychiatric Exam Psychiatric exam: Normal Affect - Skin Skin Exam: Normal Color Assessment and Plan - Assessment and Plan (Free Text) Assessment: 77 y/o female w/ abdominal pain, resolved found to have enteritis, UTI and cholelithiasis Plan: -cont abx per primary -f/u ultrasound of gallbladder -am labs -most likely related to enteritis and UTI -pending u/s determines further surgical recs -further recs per Dr. Parry <Tod Parry - Last Filed: 08/18/18 08:47> Objective - Vital Signs/Intake and Output Vital Signs (last 24 hours): Temp Pulse Resp BP Pulse Ox 97.5 F L 76 19 116/82 95 08/18/18 07:44 08/18/18 07:44 08/18/18 07:44 08/18/18 07:44 08/18/18 07:44 - Medications Medications: Current Medications Acetaminophen (Tylenol 325mg Tab) 650 mg PO DAILY PRN PRN Reason: Arthritis Alendronate Sodium (Fosamax) 70 mg PO QWK [facility] Alprazolam (Xanax) 0.5 mg PO DAILY PRN PRN Reason: Anxiety Last Admin: 08/17/18 09:42 Dose: 0.5 mg Atorvastatin Calcium (Lipitor) 20 mg PO DAILY [facility] Last Admin: 08/17/18 09:35 Dose: 20 mg Ergocalciferol (Drisdol 50,000 Intl Units Cap) 1 cap PO QWK [facility] Home Med (Icosapent Ethyl [Vascepa]) 2 tab PO BID [facility] Metronidazole (Flagyl 500mg/100ml Ns) 100 mls @ 100 mls/hr IVPB Q8 [facility]; Protoco l Last Admin: 08/18/18 01:22 Dose: 100 mls/hr Piperacillin Sod/Tazobactam (Sod 3.375 gm/ Sodium Chloride) 100 mls @ 100 mls/hr IVPB Q8 [facility]; Protocol Last Admin: 08/18/18 00:05 Dose: 100 mls/hr Losartan Potassium (Cozaar) 25 mg PO DAILY [facility] Last Admin: 08/17/18 14:06 Dose: 25 mg Pantoprazole Sodium (Protonix Ec Tab) 40 mg PO DAILY [facility] Last Admin: 08/17/18 09:36 Dose: 40 mg - Labs Labs: 08/16/18 04:56 08/16/18 06:10 Assessment and Plan - Assessment and Plan (Free Text) Assessment: 77 yo with symptomatic cholelithiasis. Second episode in 2 months. Sxs currently in remission. Rec lap choly.
--- NOTE | 2018-08-18 08:14 | CON ---
REFERRED BY: Harley Allen MD HISTORY OF PRESENT ILLNESS: This is a very pleasant 77-year-old woman who has a past medical history significant for non-Hodgkin lymphoma diagnosed three years ago for which she has been undergoing chemotherapy, now on maintenance therapy who had an episode of pain in the abdomen back in 06/2018 and presented again to the emergency room with complaining of epigastric right upper quadrant pain and discomfort. Of note, she had a recent upper and lower endoscopies with Dr. Arizmendi. Results of which are not available to me. She had been followed by him. She states that she has a known history of gallstones. She denies any nausea, vomiting, odynophagia or dysphagia. She has had no diarrhea or any associated symptomatology. PAST MEDICAL HISTORY: As per the HPI. PAST SURGICAL HISTORY: She has had a Port-A-Cath placed. 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 FAMILY HISTORY: Noncontributory. SOCIAL HISTORY: No tobacco or drug use. ALLERGIES: SHE HAS NO KNOWN DRUG ALLERGIES. PHYSICAL EXAMINATION: GENERAL: She is a well-developed, well-nourished woman. Awake, alert, and oriented x3, in no acute distress. VITAL SIGNS: Stable. She is afebrile. ABDOMEN: Soft. Good bowel sounds. Nondistended, but there is tenderness in the right upper quadrant epigastric area with a positive Nelson sign. LABORATORY DATA: Her laboratories were reviewed. There is essentially unremarkable CBC and SMA-7. The LFTs and lipase essentially are within normal limits. CAT scan was also noted. I did have some nonspecific findings from the intestinal tract which I did not feel any significance since clinically she has not had any diarrhea or pain in those areas. IMPRESSION AND PLAN: A 77-year-old woman with abdominal pain and discomfort. She does have cholelithiasis. I do suspect bouts of biliary colic. Certainly not in an acute nature at this point in time; however, she has repeated bouts now, and I do believe that she should have a laparoscopic cholecystectomy where that would be done during this hospitalization as an outpatient or through the integration consultant that had been asked to evaluate the patient. From my point of view, continue with a low-fat diet and present medical therapy. I will follow up with you. Bebo Vizcarra MD [facility] # [id number]
--- NOTE | 2018-08-18 08:17 | CP.PCM.HP ---
History of Present Illness - History of Present Illness History of Present Illness: This is a 77 y/o female with hx of non Hodgkin's Lymphoma on chemotheray last dose 08/13/18 as admitted for progressive worsening of diffused abdominal pain which started about 24 hrs prior to ER evaluation. She denies having any vomit ing or diarrhea. Had no fever. Claims that she never had any episode of abdominal pains sinc she was started on chemotherapy. Initial evaluation at the ER showed distended bowel loops and sx of enteritis. Also noted was distended gallbladder with some thickening of gb wall. CBC and CMP were within normal limits. She has a hx of HTn gastritis and hyperlipidemia. Had a recent endoscopy performed by Dr Arizmendi and noted to have gastritis. Present on Admission - Present on Admission Any Indicators Present on Admission: No History of DVT/PE: No History of Uncontrolled Diabetes: No Urinary Catheter: No Decubitus Ulcer Present: No Review of Systems - Gastrointestinal Gastrointestinal: Abdominal Pain, Belching, Bloating Past Patient History - Past Medical History & Family History Past Medical History?: Yes - Past Social History Smoking Status: Never Smoked - CARDIAC Hx Cardiac Disorders: Yes (HTN, high cholesterol) - PULMONARY Hx Respiratory Disorders: No - NEUROLOGICAL Hx Neurological Disorder: No - HEENT Hx HEENT Problems: Yes Hx Cataracts: Yes - RENAL Hx Chronic Kidney Disease: No - ENDOCRINE/METABOLIC Hx Endocrine Disorders: No - HEMATOLOGICAL/ONCOLOGICAL Hx Blood Disorders: Yes (non-Hodgskin's lymphoma) - INTEGUMENTARY Hx Dermatological Problems: No - MUSCULOSKELETAL/RHEUMATOLOGICAL Hx Arthritis: Yes Hx Falls: No - GASTROINTESTINAL Hx Gastrointestinal Disorders: Yes Hx Bowel Surgery: Yes (for intestinal-bladder fistula) Hx Colitis: Yes - GENITOURINARY/GYNECOLOGICAL Hx Genitourinary Disorders: Yes Hx Uterine Cancer: Yes - PSYCHIATRIC Hx Psychophysiologic Disorder: Yes (anxiety, depression) - SURGICAL HISTORY Hx Surgeries: Yes Hx Cataract Extraction: Yes Other/Comment: Hx Intestinal Sx (fistula) - ANESTHESIA Hx Anesthesia: Yes Hx Anesthesia Reactions: No Hx Malignant Hyperthermia: No Meds Allergies/Adverse Reactions: Allergies Allergy/AdvReac Type Severity Reaction Status Date / Time [place] Allergy RASH Uncoded 04/25/18 15:46 Physical Exam - Head Exam Head Exam: NORMAL INSPECTION - Eye Exam Eye Exam: Normal appearance - ENT Exam ENT Exam: Mucous Membranes Moist - Respiratory Exam Respiratory Exam: NORMAL BREATHING PATTERN - Cardiovascular Exam Cardiovascular Exam: REGULAR RHYTHM - GI/Abdominal Exam GI & Abdominal Exam: Normal Bowel Sounds - Neurological Exam Neurological exam: CN II-XII Intact, Oriented x3 Results - Vital Signs Recent Vital Signs: Last Vital Signs Temp 97.5 F L 08/18/18 07:44 Pulse 76 08/18/18 07:44 Resp 19 08/18/18 07:44 BP 116/82 08/18/18 07:44 Pulse Ox 95 08/18/18 07:44 - Labs Result Diagrams: 08/16/18 04:56 08/16/18 06:10 Assessment & Plan (1) Cholelithiasis Status: Acute (2) Cholecystitis Status: Acute (3) Gastritis Status: Acute (4) NHL (non-Hodgkin's lymphoma) Status: Acute (5) Hypertension Status: Acute (6) Hyperlipidemia Status: Acute - Assessment and Plan (Free Text) Plan: Pain meds NPO antacid IV fluids GI eval surgical eval. Consult with Dr saurabh grant chemotherapy.
--- NOTE | 2018-08-18 08:28 | CP.PCM.PN ---
Subjective - Date & Time of Evaluation Date of Evaluation: 08/17/18 Time of Evaluation: 11:00 - Subjective Subjective: Patient feels a lot better after antacid Has no chest pain or SOB afebrile. Objective - Vital Signs/Intake and Output Vital Signs (last 24 hours): Temp Pulse Resp BP Pulse Ox 97.5 F L 76 19 116/82 95 08/18/18 07:44 08/18/18 07:44 08/18/18 07:44 08/18/18 07:44 08/18/18 07:44 - Medications Medications: Current Medications Acetaminophen (Tylenol 325mg Tab) 650 mg PO DAILY PRN PRN Reason: Arthritis Alendronate Sodium (Fosamax) 70 mg PO QWK [facility] Alprazolam (Xanax) 0.5 mg PO DAILY PRN PRN Reason: Anxiety Last Admin: 08/17/18 09:42 Dose: 0.5 mg Atorvastatin Calcium (Lipitor) 20 mg PO DAILY [facility] Last Admin: 08/17/18 09:35 Dose: 20 mg Ergocalciferol (Drisdol 50,000 Intl Units Cap) 1 cap PO QWK [facility] Home Med (Icosapent Ethyl [Vascepa]) 2 tab PO BID [facility] Metronidazole (Flagyl 500mg/100ml Ns) 100 mls @ 100 mls/hr IVPB Q8 [facility]; Protocol Last Admin: 08/18/18 01:22 Dose: 100 mls/hr Piperacillin Sod/Tazobactam (Sod 3.375 gm/ Sodium Chloride) 100 mls @ 100 mls/hr IVPB Q8 [facility]; Protocol Last Admin: 08/18/18 00:05 Dose: 100 mls/hr Losartan Potassium (Cozaar) 25 mg PO DAILY [facility] Last Admin: 08/17/18 14:06 Dose: 25 mg Pantoprazole Sodium (Protonix Ec Tab) 40 mg PO DAILY [facility] Last Admin: 08/17/18 09:36 Dose: 40 mg - Labs Labs: 08/16/18 04:56 08/16/18 06:10 - Head Exam Head Exam: NORMAL INSPECTION - Eye Exam Eye Exam: Normal appearance - ENT Exam ENT Exam: Mucous Membranes Moist - Respiratory Exam Respiratory Exam: Clear to Ausculation Bilateral - Cardiovascular Exam Cardiovascular Exam: REGULAR RHYTHM - GI/Abdominal Exam GI & Abdominal Exam: Tenderness, Normal Bowel Sounds Assessment and Plan (1) Cholelithiasis Status: Acute (2) Cholecystitis Status: Acute (3) Gastritis Status: Acute (4) NHL (non-Hodgkin's lymphoma) Status: Acute (5) Hypertension Status: Acute (6) Hyperlipidemia Status: Acute - Assessment and Plan (Free Text) Plan: Cont meds Con ttx Cont PT pain meds follow up with GI
[2018-08-18] MEDS ORDERED: ALENDRONATE 70 MG TAB PO SCH (09:00)
[2018-08-18] MEDS: Pantoprazole 40 mg EC Tab PO SCH (09:10)
--- NOTE | 2018-08-18 11:00 | US ---
Date of service: 08/18/2018 HISTORY: cholelithiasis COMPARISON: Abdomen pelvis CT with contrast 08/16/2018. TECHNIQUE: Sonographic evaluation of the abdomen. FINDINGS: LIVER: Measures 18.6 cm. Normal echogenicity of the liver parenchyma. No mass. No intrahepatic bile duct dilatation. Normal directional blood flows appreciated at the main portal vein with the main hepatic vein patent. GALLBLADDER: Gallbladder is mildly distended with no significant mural thickening or reported sonographic Nelson sign. No pericholecystic fluid collection. Numerous prominent calculi are reiterated in the lumen. COMMON BILE DUCT: Measures 5.1 mm. No stones. No dilatation. PANCREAS: Pancreas is poorly evaluated due to body habitus. RIGHT KIDNEY: Measures 11.3cm. Normal echogenicity. No calculus, mass, or hydronephrosis. LEFT KIDNEY: Measures 8.3cm. Left kidney is markedly atrophic and dysfunctional appearing with heterogeneous echotexture and poor morphological characteristic internally. Calculus identified related to the lower pole once again, measuring 9 mm. No obstructive uropathy. SPLEEN: No mass is seen in the contour of the spleen appears normal however the spleen is enlarged to 14.6 cm AORTA: No aneurysmal dilatation. IVC: Unremarkable. OTHER FINDINGS: None. IMPRESSION: 1. Distended gallbladder with extensive cholelithiasis. No mural thickening or pericholecystic fluid collection. No reported sonographic Nelson sign. Normal CBD caliber. No intrahepatic biliary dilatation. 2. Splenomegaly to 14.6 cm without focal mass. 3. Marked left renal atrophy. Parenchymal intrarenal calculus again noted at the lower pole 9 mm greatest dimension. 4. Poor evaluation of the pancreas due to body habitus.
[2018-08-18] MEDS: Omega-3-Acid Ethyl Esters 1 GM Cap PO SCH (17:39)
--- NOTE | 2018-08-18 18:55 | CP.PCM.PN ---
Subjective - Date & Time of Evaluation Date of Evaluation: 08/18/18 Time of Evaluation: 09:00 - Subjective Subjective: patient seen and examined at bedside. Interim events noted No complaints offered at this time denies cp/sob/fever/chills. available diagnostic data reviewed Review of Systems All systems: reviewed and no additional remarkable complaints except mentioned above Objective Vital Signs Stable - Constitutional Appears: Non-toxic, No Acute Distress Head Exam: NORMAL INSPECTION Eye Exam: Normal appearance Respiratory Exam: NORMAL BREATHING PATTERN Cardiovascular Exam: +S1, +S2 GI & Abdominal Exam: Soft Neurological Exam: Alert, Awake Psychiatric exam: Normal Affect, Normal Mood Skin Exam: Normal Color, Warm Assessment and Plan monitor vitals monitor labs Cont meds Cont tx consultants appreciated input plan is for lap evangelina patient medically optimized for planned procedure rest of plan as ordered Objective - Vital Signs/Intake and Output Vital Signs (last 24 hours): Temp Pulse Resp BP Pulse Ox 97.2 F L 77 20 115/74 98 08/18/18 16:25 08/18/18 16:25 08/18/18 16:25 08/18/18 16:25 08/18/18 16:25 - Medications Medications: Current Medications Acetaminophen (Tylenol 325mg Tab) 650 mg PO DAILY PRN PRN Reason: Arthritis Alendronate Sodium (Fosamax) 70 mg PO QWK [facility] Alprazolam (Xanax) 0.5 mg PO DAILY PRN PRN Reason: Anxiety Last Admin: 08/18/18 13:15 Dose: 0.5 mg Atorvastatin Calcium (Lipitor) 20 mg PO DAILY [facility] Last Admin: 08/18/18 09:11 Dose: 20 mg Ergocalciferol (Drisdol 50,000 Intl Units Cap) 1 cap PO QWK [facility] Metronidazole (Flagyl 500mg/100ml Ns) 100 mls @ 100 mls/hr IVPB Q8 [facility]; Protocol Last Admin: 08/18/18 16:23 Dose: 100 mls/hr Piperacillin Sod/Tazobactam (Sod 3.375 gm/ Sodium Chloride) 100 mls @ 100 mls/hr IVPB Q8 [facility]; Protocol Last Admin: 08/18/18 16:23 Dose: 100 mls/hr Losartan Potassium (Cozaar) 25 mg PO DAILY [facility] Last Admin: 08/18/18 09:08 Dose: 25 mg Gbkry-9-Mjwv Ethyl Esters (Lovaza) 2 gm PO BID [facility] Last Admin: 08/18/18 17:39 Dose: 2 gm Pantoprazole Sodium (Protonix Ec Tab) 40 mg PO DAILY [facility] Last Admin: 08/18/18 09:10 Dose: 40 mg - Labs Labs: 08/16/18 04:56 08/16/18 06:10
[2018-08-18 19:49] LABS: INR 1.1; PROTHROMBIN TIME 12.5 Seconds (9.8-13.1)
[2018-08-19] MEDS: Piperacillin/Tazobact 3.375 GM in Sodium Chloride 0.9% 100 ML IVPB SCH ×3 (01:12→16:16)
[2018-08-19] MEDS: metroNIDAZOLE 500mg/100ml NS 100 ML IVPB SCH ×3 (02:12→16:19)
--- NOTE | 2018-08-19 08:13 | CON ---
DATE: 08/18/2018 This is a female patient, 77-year-old, who I was called to evaluate for some findings that were reported on a CT scan. The patient was admitted with right upper quadrant pain. Upon admission, she had a CAT scan performed and the CAT scan showed the presence of multiple gallbladder stones. In reference to the kidneys, she has normal right renal unit. On the left side, however, she has an atrophic kidney and she has a hyperdense cyst in addition to a possible 9 mm lower pole stone without any evidence of obstruction. The patient was treated here with intravenous antibiotics. She has responded well to that and now today, she had a renal ultrasound performed, which shows again the marked left renal atrophy and the calculus noted at the lower pole, but there is no evidence of any suspect renal mass beyond what has been described on that ultrasound. The patient had some blood work done on 08/16/2018, shows a 10.7 white count. Chemistries indicate the BUN at 18 with a creatinine of 1 and a GFR of greater than 60%. Her urinalysis showed some positive nitrites in the urine. The urine blood was negative. In terms of medication, she is on IV Flagyl that was started upon admission. In terms of vital signs, at this point, she has been afebrile. Blood pressure is stable. No other significant changes. In her urine, she did have a culture performed on 08/16/2018, which indicated the presence of an E. coli urinary tract infection and again, she is on antibiotics for this condition. Physical examination, the patient feels significantly improved while on the antibiotics. She does have a history of urinary tract infections in the past, but probably no more than 1 to 2 per year. She is not having any significant left flank pain in the area of the atrophic kidney and so consequently, we will be basically monitoring that left renal unit with successive ultrasounds in the future. She has been on Macrodantin in the past for treatment of urinary tract infection, which has responded for her quite well. At this time, overall, the patient is improving. She is out of bed. No flank pain. The right upper quadrant pain appears to be moderately resolved. Urologically, I feel the patient can be discharged with an oral antibiotic, perhaps Macrodantin twice a day for one week and then office followup as indicated. Laura Jara MD [facility] # [id number]
--- NOTE | 2018-08-19 08:15 | CP.PCM.PN ---
Subjective - Date & Time of Evaluation Date of Evaluation: 08/19/18 Time of Evaluation: 08:13 - Subjective Subjective: Surgery: Dr. Parry 77 y/o female with abdominal pain, resolved found to have enteritis, UTI and cholelithiasis. (-) Flatus (-) BM today. states she feels well and is in no pain. Denies f/n/v.She denies diarrhea or constipation. As of now, she states her abdominal pain has completely resolved. Objective - Vital Signs/Intake and Output Vital Signs (last 24 hours): Temp Pulse Resp BP Pulse Ox 97.4 F L 71 18 120/77 98 08/19/18 00:05 08/19/18 00:05 08/19/18 00:05 08/19/18 00:05 08/19/18 00:05 - Medications Medications: Current Medications Acetaminophen (Tylenol 325mg Tab) 650 mg PO DAILY PRN PRN Reason: Arthritis Alendronate Sodium (Fosamax) 70 mg PO QWK [facility] Alprazolam (Xanax) 0.5 mg PO DAILY PRN PRN Reason: Anxiety Last Admin: 08/18/18 13:15 Dose: 0.5 mg Atorvastatin Calcium (Lipitor) 20 mg PO DAILY [facility] Last Admin: 08/18/18 09:11 Dose: 20 mg Ergocalciferol (Drisdol 50,000 Intl Units Cap) 1 cap PO QWK [facility] Metronidazole (Flagyl 500mg/100ml Ns) 100 mls @ 100 mls/hr IVPB Q8 [facility]; Protocol Last Admin: 08/19/18 02:12 Dose: 100 mls/hr Piperacillin Sod/Tazobactam (Sod 3.375 gm/ Sodium Chloride) 100 mls @ 100 mls/hr IVPB Q8 [facility]; Protocol Last Admin: 08/19/18 01:12 Dose: 100 mls/hr Losartan Potassium (Cozaar) 25 mg PO DAILY [facility] Last Admin: 08/18/18 09:08 Dose: 25 mg Wkbna-3-Wqjv Ethyl Esters (Lovaza) 2 gm PO BID [facility] Last Admin: 08/18/18 17:39 Dose: 2 gm Pantoprazole Sodium (Protonix Ec Tab) 40 mg PO DAILY [facility] Last Admin: 08/18/18 09:10 Dose: 40 mg - Labs Labs: 08/16/18 04:56 08/16/18 06:10 PT 12.5 Seconds (9.8-13.1) 08/18/18 19:14 INR 1.1 08/18/18 19:14 - Constitutional Appears: Well, Non-toxic, No Acute Distress - Head Exam Head Exam: ATRAUMATIC, NORMOCEPHALIC - Eye Exam Eye Exam: Normal appearance - ENT Exam ENT Exam: Mucous Membranes Moist - Respiratory Exam Respiratory Exam: Clear to Ausculation Bilateral - Cardiovascular Exam Cardiovascular Exam: REGULAR RHYTHM, +S1, +S2 - GI/Abdominal Exam GI & Abdominal Exam: Soft. absent: Distended, Tenderness - Neurological Exam Neurological Exam: Alert, Awake, Oriented x3 - Psychiatric Exam Psychiatric exam: Normal Affect - Skin Skin Exam: Normal Color Assessment and Plan - Assessment and Plan (Free Text) Assessment: 77 y/o female w/ abdominal pain, resolved found to have enteritis, UTI and cholelithiasis Plan: -cont abx per primary -ultrasound of gallbladder:impacted gallstone at the neck of the GB, diffuse wall thickening to 3.3 cm, developing acute cholecystitis -am labs -most likely related to enteritis and UTI -Possible cholecystectomy tomorrow. -further recs per Dr. Parry
[2018-08-19 08:28] LABS: BASO % 0.4 % (0.0-2.0); EOS # 0.1 K/uL (0.0-0.7); EOS % 1.4 % (0.0-4.0); HEMOGLOBIN 11.3 g/dL (12.0-16.0); LYMPH # 1.3 K/uL (1.0-4.3); LYMPH % 22.4 % (20.0-40.0); MEAN CELL VOLUME 76.9 fl (81.0-99.0); MEAN CORPUSCULAR HEMOGLOBIN 24.4 pg (27.0-31.0); MEAN CORPUSCULAR HGB CONC 31.8 g/dL (33.0-37.0); MEAN PLATELET VOLUME 9.1 fl (7.2-11.7); MONO # 0.5 K/uL (0.0-0.8); MONO % 7.9 % (0.0-10.0); NEUT % 67.9 % (50.0-75.0); NRBC % 0.1 % (0.0-0.0); RBC 4.64 Mil/uL (3.80-5.20); RED CELL DISTRIBUTION WIDTH 17.9 % (11.5-14.5); WHITE BLOOD COUNT 5.9 K/uL (4.8-10.8)
[2018-08-19 08:43] LABS: ALB/GLOB RATIO 1.6 (1.0-2.1); ALBUMIN 4.1 g/dL (3.5-5.0); ALT/SGPT 27 U/L (9-52); AST/SGOT 20 U/L (14-36); BLOOD UREA NITROGEN 13 mg/dl (7-17); CALCIUM 9.3 mg/dL (8.4-10.2); GFR NON-AFRICAN AMERICAN 54
[2018-08-19] MEDS: Omega-3-Acid Ethyl Esters 1 GM Cap PO SCH ×2 (09:14→16:18)
[2018-08-19] MEDS: Pantoprazole 40 mg EC Tab PO SCH (09:15)
--- NOTE | 2018-08-19 12:18 | CP.PCM.PN ---
Subjective - Date & Time of Evaluation Date of Evaluation: 08/19/18 Time of Evaluation: 12:17 - Subjective Subjective: no overnight events Objective - Vital Signs/Intake and Output Vital Signs (last 24 hours): Temp Pulse Resp BP Pulse Ox 98.2 F 71 20 121/81 94 L 08/19/18 08:14 08/19/18 08:14 08/19/18 08:14 08/19/18 08:14 08/19/18 08:14 - Medications Medications: Current Medications Acetaminophen (Tylenol 325mg Tab) 650 mg PO DAILY PRN PRN Reason: Arthritis Alendronate Sodium (Fosamax) 70 mg PO QWK [facility] Alprazolam (Xanax) 0.5 mg PO DAILY PRN PRN Reason: Anxiety Last Admin: 08/19/18 09:19 Dose: 0.5 mg Atorvastatin Calcium (Lipitor) 20 mg PO DAILY [facility] Last Admin: 08/19/18 09:15 Dose: 20 mg Ergocalciferol (Drisdol 50,000 Intl Units Cap) 1 cap PO QWK [facility] Metronidazole (Flagyl 500mg/100ml Ns) 100 mls @ 100 mls/hr IVPB Q8 [facility]; Protocol Last Admin: 08/19/18 09:15 Dose: 100 mls/hr Piperacillin Sod/Tazobactam (Sod 3.375 gm/ Sodium Chloride) 100 mls @ 100 mls/hr IVPB Q8 [facility]; Protocol Last Admin: 08/19/18 09:15 Dose: 100 mls/hr Lactated Ringer's (Lactated Ringer's) 1,000 mls @ 115 mls/hr IV .Q8H42M [facility] Losartan Potassium (Cozaar) 25 mg PO DAILY [facility] Last Admin: 08/19/18 09:14 Dose: 25 mg Nfese-9-Muku Ethyl Esters (Lovaza) 2 gm PO BID [facility] Last Admin: 08/19/18 09:14 Dose: 2 gm Pantoprazole Sodium (Protonix Ec Tab) 40 mg PO DAILY [facility] Last Admin: 08/19/18 09:15 Dose: 40 mg - Labs Labs: 08/19/18 07:50 08/19/18 07:50 PT 12.5 Seconds (9.8-13.1) 08/18/18 19:14 INR 1.1 08/18/18 19:14 - Head Exam Head Exam: NORMOCEPHALIC - Neck Exam Neck Exam: Normal Inspection - Respiratory Exam Respiratory Exam: Clear to Ausculation Bilateral, NORMAL BREATHING PATTERN - Cardiovascular Exam Cardiovascular Exam: REGULAR RHYTHM - GI/Abdominal Exam GI & Abdominal Exam: Soft, Normal Bowel Sounds Assessment and Plan - Assessment and Plan (Free Text) Assessment: 77 yo female with abd pain lap evangelina to follow
--- NOTE | 2018-08-19 21:22 | PQF ---
PROVIDER RESPONSE TEXT: Provider was unable to determine a response for this query. REVIEWER QUERY TEXT: Documentation Clarification Physician?s Documentation Request This Form is Not a Permanent Document in the Medical Record Pt Name: TONY BLUM MR #: [id number] Payor: MEDICARE PART [id number] Adm Date: 08/16/2018 7:58:00 AM Reviewer: Nataly Paez Ext. Query Date: 08/18/2018 10:00:00 AM Documentation Clarification [id number] By submitting this query, we are merely seeking further clarification of documentation to accurately reflect all conditions that you are monitoring, evaluating, treating or that extend the hospitalizati on or utilize additional resources of care. Please utilize your independent clinical judgment when ad dressing the question(s) below. Dear Doctor Kavin Price, The patient?s Clinical Indicators include: x Your help is requested in clarifying the following clinical documentation, if you can please further specify in the medical record and discharge summary. 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 Clinically unable to determine/unknown Disagree with the above request Need to discuss Query created by: Nataly Paez on 08/18/2018 10:00 AM Electronically signed by: Kavin Price MD 08/19/2018 9:18 PM
[2018-08-20] MEDS: Lactated Ringer's 1,000 ML IV SCH ×3 (00:10→17:14)
[2018-08-20] MEDS: Piperacillin/Tazobact 3.375 GM in Sodium Chloride 0.9% 100 ML IVPB SCH ×3 (00:10→16:40)
[2018-08-20] MEDS: metroNIDAZOLE 500mg/100ml NS 100 ML IVPB SCH ×3 (00:14→17:12)
[2018-08-20 06:48] LABS: INR 1.1; PROTHROMBIN TIME 12.7 Seconds (9.8-13.1)
[2018-08-20 06:50] LABS: BASO % 0.4 % (0.0-2.0); EOS # 0.1 K/uL (0.0-0.7); EOS % 1.4 % (0.0-4.0); HEMOGLOBIN 10.3 g/dL (12.0-16.0); LYMPH # 1.1 K/uL (1.0-4.3); LYMPH % 22.3 % (20.0-40.0); MEAN CELL VOLUME 77.5 fl (81.0-99.0); MEAN CORPUSCULAR HEMOGLOBIN 25.1 pg (27.0-31.0); MEAN CORPUSCULAR HGB CONC 32.4 g/dL (33.0-37.0); MEAN PLATELET VOLUME 9.1 fl (7.2-11.7); MONO # 0.4 K/uL (0.0-0.8); MONO % 8.5 % (0.0-10.0); NEUT # 3.4 K/uL (1.8-7.0); NEUT % 67.4 % (50.0-75.0); NRBC % 0.1 % (0.0-0.0); PARTIAL THROMBOPLASTIN TIME 30.7 Seconds (25.6-37.1); RBC 4.11 Mil/uL (3.80-5.20); RED CELL DISTRIBUTION WIDTH 17.9 % (11.5-14.5)
[2018-08-20 06:58] LABS: ALB/GLOB RATIO 1.6 (1.0-2.1); ALBUMIN 3.6 g/dL (3.5-5.0); ALT/SGPT 25 U/L (9-52); AST/SGOT 18 U/L (14-36); BLOOD UREA NITROGEN 13 mg/dl (7-17); CALCIUM 9.7 mg/dL (8.4-10.2); GFR NON-AFRICAN AMERICAN 54
--- NOTE | 2018-08-20 07:54 | CP.PCM.PN ---
Subjective - Date & Time of Evaluation Date of Evaluation: 08/19/18 Time of Evaluation: 11:00 - Subjective Subjective: Patient is doing well Has no chest pain or SOB Afebrile Scheduled for cholecystectomy tomorrow. Objective - Vital Signs/Intake and Output Vital Signs (last 24 hours): Temp Pulse Resp BP Pulse Ox 97.6 F 76 20 126/79 97 08/19/18 23:57 08/19/18 23:57 08/19/18 23:57 08/19/18 23:57 08/19/18 23:57 - Medications Medications: Current Medications Acetaminophen (Tylenol 325mg Tab) 650 mg PO DAILY PRN PRN Reason: Arthritis Alendronate Sodium (Fosamax) 70 mg PO QWK [facility] Alprazolam (Xanax) 0.5 mg PO DAILY PRN PRN Reason: Anxiety Last Admin: 08/19/18 09:19 Dose: 0.5 mg Atorvastatin Calcium (Lipitor) 20 mg PO DAILY [facility] Last Admin: 08/19/18 09:15 Dose: 20 mg Ergocalciferol (Drisdol 50,000 Intl Units Cap) 1 cap PO QWK [facility] Metronidazole (Flagyl 500mg/100ml Ns) 100 mls @ 100 mls/hr IVPB Q8 [facility]; Pr otocol Last Admin: 08/20/18 00:14 Dose: 100 mls/hr Piperacillin Sod/Tazobactam (Sod 3.375 gm/ Sodium Chloride) 100 mls @ 100 mls/hr IVPB Q8 [facility]; Protocol Last Admin: 08/20/18 00:10 Dose: 100 mls/hr Lactated Ringer's (Lactated Ringer's) 1,000 mls @ 115 mls/hr IV .Q8H42M [facility] Last Admin: 08/20/18 00:10 Dose: 115 mls/hr Losartan Potassium (Cozaar) 25 mg PO DAILY [facility] Last Admin: 08/19/18 09:14 Dose: 25 mg Pwain-1-Zpal Ethyl Esters (Lovaza) 2 gm PO BID [facility] Last Admin: 08/19/18 16:18 Dose: 2 gm Pantoprazole Sodium (Protonix Ec Tab) 40 mg PO DAILY [facility] Last Admin: 08/19/18 09:15 Dose: 40 mg - Labs Labs: 08/20/18 06:00 08/20/18 06:00 PT 12.7 Seconds (9.8-13.1) 08/20/18 06:00 INR 1.1 08/20/18 06:00 APTT 30.7 Seconds (25.6-37.1) 08/20/18 06:00 - Head Exam Head Exam: NORMAL INSPECTION - Eye Exam Eye Exam: Normal appearance - ENT Exam ENT Exam: Mucous Membranes Moist - Respiratory Exam Respiratory Exam: Clear to Ausculation Bilateral - Cardiovascular Exam Cardiovascular Exam: REGULAR RHYTHM - GI/Abdominal Exam GI & Abdominal Exam: Normal Bowel Sounds Assessment and Plan (1) Cholelithiasis Status: Acute (2) Cholecystitis Status: Acute (3) Gastritis Status: Acute (4) NHL (non-Hodgkin's lymphoma) Status: Acute (5) Hypertension Status: Acute (6) Hyperlipidemia Status: Acute - Assessment and Plan (Free Text) Plan: Cont meds Cont tx Cont PT Pain meds Medically stable for surgery in AM
[2018-08-20] MEDS: Pantoprazole 40 mg EC Tab PO SCH (08:28)
[2018-08-20] MEDS: Omega-3-Acid Ethyl Esters 1 GM Cap PO SCH ×2 (08:28→17:05)
--- NOTE | 2018-08-20 09:01 | CP.PCM.PN ---
Subjective - Date & Time of Evaluation Date of Evaluation: 08/20/18 Time of Evaluation: 08:57 - Subjective Subjective: Pt seen and assessed at bedside. The plan of care has developed, as the admitting diagnosis was originally UTI and renal stone. Currently the pt is for cholecystectomy surgery today, diagnosis of acute cholelithiasis. Subjective Review of Systems: Reviewed and no additional remarkable complaints except diffuse abdominal pain Objective Appears: Anxious, Non-toxic, No Acute Distress. Head Exam: NORMAL INSPECTION, normocephalic. Eye Exam: Normal eye inspection, EOMI, PERRLA. Respiratory Exam: NORMAL BREATHING PATTERN, breath sounds clear bilaterally. Cardiovascular Exam: +S1, +S2. RRR. GI & Abdominal Exam: Soft, diffuse tenderness, mildly distended. Neurological Exam: Alert and awake, oriented x3. Psychiatric exam: Normal mood. Calm and cooperative. Assessment/Impression/Plan: 1.) Cholelithasis -The plan of care has developed and the pt will need surgery for acute cholel ithiasis. -EKG, coags, and CXR are unremarkable at this time. -Keep Pt NPO. -For cholecystectomy today with surgical team. -IVF hydration. -Continue Zosyn. Objective - Vital Signs/Intake and Output Vital Signs (last 24 hours): Temp Pulse Resp BP Pulse Ox 97.6 F 71 20 131/72 97 08/19/18 23:57 08/20/18 08:27 08/19/18 23:57 08/20/18 08:27 08/19/18 23:57 - Medications Medications: Current Medications Acetaminophen (Tylenol 325mg Tab) 650 mg PO DAILY PRN PRN Reason: Arthritis Alendronate Sodium (Fosamax) 70 mg PO QWK [facility] Alprazolam (Xanax) 0.5 mg PO DAILY PRN PRN Reason: Anxiety Last Admin: 08/19/18 09:19 Dose: 0.5 mg Atorvastatin Calcium (Lipitor) 20 mg PO DAILY [facility] Last Admin: 08/20/18 08:28 Dose: Not Given Ergocalciferol (Drisdol 50,000 Intl Units Cap) 1 cap PO QWK [facility] Metronidazole (Flagyl 500mg/100ml Ns) 100 mls @ 100 mls/hr IVPB Q8 [facility]; P rotocol Last Admin: 08/20/18 00:14 Dose: 100 mls/hr Piperacillin Sod/Tazobactam (Sod 3.375 gm/ Sodium Chloride) 100 mls @ 100 mls/hr IVPB Q8 [facility]; Protocol Last Admin: 08/20/18 08:25 Dose: 100 mls/hr Lactated Ringer's (Lactated Ringer's) 1,000 mls @ 115 mls/hr IV .Q8H42M [facility] Last Admin: 08/20/18 00:10 Dose: 115 mls/hr Losartan Potassium (Cozaar) 25 mg PO DAILY [facility] Last Admin: 08/20/18 08:27 Dose: 25 mg Wuqua-7-Gktg Ethyl Esters (Lovaza) 2 gm PO BID [facility] Last Admin: 08/20/18 08:28 Dose: Not Given Pantoprazole Sodium (Protonix Ec Tab) 40 mg PO DAILY [facility] Last Admin: 08/20/18 08:28 Dose: Not Given - Labs Labs: 08/20/18 06:00 08/20/18 06:00 PT 12.7 Seconds (9.8-13.1) 08/20/18 06:00 INR 1.1 08/20/18 06:00 APTT 30.7 Seconds (25.6-37.1) 08/20/18 06:00 Assessment and Plan (1) Cholecystitis Status: Acute (2) Cholelithiasis Status: Acute
[2018-08-20] MEDS ORDERED: Propofol 10 mg/ml Inj (20 ML) ONE (10:01)
[2018-08-20] MEDS ORDERED: Rocuronium 10 mg/ml (5 ml) ONE ×2 (10:02→12:43)
[2018-08-20] MEDS ORDERED: ePHEDrine 50 mg/ml Inj ONE (10:02)
[2018-08-20] MEDS ORDERED: Midazolam 2 MG/2 ML VIAL ONE (10:02)
[2018-08-20] MEDS ORDERED: Succinylcholine Chloride 20 mg/ml Syr (5 ml) IV ONE (10:03)
[2018-08-20] MEDS ORDERED: Lidocaine 4% (Laryng-O-Jet) Kit MM ONE (10:03)
[2018-08-20] MEDS ORDERED: Lidocaine 1% Inj (20ml) ONE (10:38)
[2018-08-20] MEDS ORDERED: Bupivacaine 0.5% Inj(30mL) ONE (10:39)
[2018-08-20] MEDS ORDERED: Lactated Ringer's 1,000 ML IV ONE (11:20)
[2018-08-20] MEDS ORDERED: Dexamethasone 4 mg/1 ml ONE (12:01)
[2018-08-20] MEDS: Lactated Ringer's 1,000 ML IV ONE ×4 (13:00→17:04)
[2018-08-20] MEDS ORDERED: Morphine 5 mg/10 ml preservative-free Inj(Duramorph) ONE (13:14)
[2018-08-20] MEDS ORDERED: Neostigmine 1:1000 (1 mg/ml) Inj ONE (13:20)
[2018-08-20] MEDS ORDERED: Lactated Ringer's 1,000 ML IV SCH (14:30)
[2018-08-20] MEDS ORDERED: HYDROmorphone 1 mg/ml ISec IVP PRN (14:30)
--- NOTE | 2018-08-20 14:49 | PCM.SURG1 ---
Surgeon's Initial Post Op Note - Surgeon's Notes Surgeon: Dr. Parry Assorter: PGY2, Carol PGY1 Type of Anesthesia: General Endo Pre-Operative Diagnosis: Acute Cholelithiasis Operative Findings: Adhesed bowel to the anterior abdominal wall. Hostile abdomen. small bowel looped on itself. Significant number of adhesions. Post-Operative Diagnosis: 1. Partial Small bowel obstruction. 2. Internal Hernia. 3. Peritoneal Adhesions Operation Performed: 1. Exploratory Laparotomy. 2. Extensive Lysis of Adhesion. 3. small bowel resection, closure of mesenteric defect Specimen/Specimens Removed: 1. Jejunum 10cm Estimated Blood Loss: EBL {In ML}: 120 Drains Used: No Drains Post-Op Condition: Fair Date of Surgery/Procedure: 08/20/18 Time of Surgery/Procedure: 15:03
[2018-08-20 19:04] LABS: HEMOGLOBIN 11.1 g/dL (12.0-16.0); MEAN CELL VOLUME 77.6 fl (81.0-99.0); MEAN CORPUSCULAR HEMOGLOBIN 24.9 pg (27.0-31.0); MEAN CORPUSCULAR HGB CONC 32.1 g/dL (33.0-37.0); RBC 4.45 Mil/uL (3.80-5.20); RED CELL DISTRIBUTION WIDTH 17.5 % (11.5-14.5)
[2018-08-20 19:16] LABS: BLOOD UREA NITROGEN 13 mg/dl (7-17); CALCIUM 9.2 mg/dL (8.4-10.2); GFR NON-AFRICAN AMERICAN > 60
[2018-08-21] MEDS: Piperacillin/Tazobact 3.375 GM in Sodium Chloride 0.9% 100 ML IVPB SCH ×3 (00:44→16:03)
[2018-08-21] MEDS: Lactated Ringer's 1,000 ML IV SCH ×2 (00:45→01:55)
[2018-08-21] MEDS: metroNIDAZOLE 500mg/100ml NS 100 ML IVPB SCH ×3 (01:45→16:03)
[2018-08-21 07:01] LABS: BLOOD UREA NITROGEN 12 mg/dl (7-17); CALCIUM 9.3 mg/dL (8.4-10.2); GFR NON-AFRICAN AMERICAN > 60
[2018-08-21 07:10] LABS: BASO % 0.1 % (0.0-2.0); HEMOGLOBIN 10.4 g/dL (12.0-16.0); LYMPH # 0.8 K/uL (1.0-4.3); LYMPH % 8.4 % (20.0-40.0); MEAN CELL VOLUME 76.8 fl (81.0-99.0); MEAN CORPUSCULAR HEMOGLOBIN 24.8 pg (27.0-31.0); MEAN CORPUSCULAR HGB CONC 32.3 g/dL (33.0-37.0); MONO # 0.8 K/uL (0.0-0.8); NEUT # 7.7 K/uL (1.8-7.0); NEUT % 82.5 % (50.0-75.0); PLATELET COUNT 204 K/uL (130-400); RBC 4.18 Mil/uL (3.80-5.20); RED CELL DISTRIBUTION WIDTH 17.6 % (11.5-14.5); WHITE BLOOD COUNT 9.3 K/uL (4.8-10.8)
--- NOTE | 2018-08-21 08:18 | CP.PCM.PN ---
<Placdio Williamson - Last Filed: 08/21/18 08:16> Subjective - Date & Time of Evaluation Date of Evaluation: 08/21/18 Time of Evaluation: 08:16 - Subjective Subjective: Surgery Progress note- Dr. Parry No acute complaints overnight. Some incisional pain, however well controlled w/ current pain regiment. Chavez in place, made clear adequate urine overnight 950cc. Denies nausea, vomiting. Remains NPO. Denies Flatus or BM at this time. Dressing of C/D/I no strikethrough. Objective - Vital Signs/Intake and Output Vital Signs (last 24 hours): Temp Pulse Resp BP Pulse Ox 98.3 F 90 20 123/76 97 08/21/18 07:34 08/21/18 07:34 08/21/18 07:34 08/21/18 07:34 08/21/18 07:34 Intake and Output: 08/21/18 08/21/18 06:59 18:59 Output Total 750 Balance -750 - Medications Medications: Current Medications Acetaminophen (Tylenol 325mg Tab) 650 mg PO DAILY PRN PRN Reason: Arthritis Alendronate Sodium (Fosamax) 70 mg PO QWK [facility] Alprazolam (Xanax) 0.5 mg PO DAILY PRN PRN Reason: Anxiety Last Admin: 08/20/18 18:50 Dose: 0.5 mg Atorvastatin Calcium (Lipitor) 20 mg PO DAILY [facility] Last Admin: 08/20/18 08:28 Dose: Not Given Enoxaparin Sodium (Lovenox) 40 mg SC DAILY [facility]; Protocol Ergocalciferol (Drisdol 50,000 Intl Units Cap) 1 cap PO QWK [facility] Hydromorphone HCl (Dilaudid) 1 mg IVP Q4 PRN PRN Reason: Pain, severe (8-10) Metronidazole (Flagyl 500mg/100ml Ns) 100 mls @ 100 mls/hr IVPB Q8 [facility]; Protocol Last Admin: 08/21/18 01:45 Dose: 100 mls/hr Piperacillin Sod/Tazobactam (Sod 3.375 gm/ Sodium Chloride) 100 mls @ 100 mls/hr IVPB Q8 [facility]; Protocol Last Admin: 08/21/18 00:44 Dose: 100 mls/hr Lactated Ringer's (Lactated Ringer's) 1,000 mls @ 115 mls/hr IV .Q8H42M [facility] Last Admin: 08/21/18 01:55 Dose: Not Given Potassium Chloride/Dextrose/Sod Cl (Potassium Chl 20 Meq In D5-1/2ns) 1,000 mls @ 125 mls/hr IV .Q8H [facility] Losartan Potassium (Cozaar) 25 mg PO DAILY [facility] Last Admin: 08/20/18 08:27 Dose: 25 mg Vsenu-6-Ofph Ethyl Esters (Lovaza) 2 gm PO BID [facility] Last Admin: 08/20/18 17:05 Dose: Not Given Pantoprazole Sodium (Protonix Ec Tab) 40 mg PO DAILY [facility] Last Admin: 08/20/18 08:28 Dose: Not Given - Labs Labs: 08/21/18 06:35 08/21/18 06:35 PT 12.7 Seconds (9.8-13.1) 08/20/18 06:00 INR 1.1 08/20/18 06:00 APTT 30.7 Seconds (25.6-37.1) 08/20/18 06:00 - Constitutional Appears: Non-toxic, No Acute Distress - Head Exam Head Exam: ATRAUMATIC - Eye Exam Eye Exam: EOMI. absent: Scleral icterus - ENT Exam ENT Exam: Mucous Membranes Moist - Respiratory Exam Respiratory Exam: NORMAL BREATHING PATTERN. absent: Accessory Muscle Use, Respiratory Distress - Cardiovascular Exam Cardiovascular Exam: absent: Bradycardia, Tachycardia - GI/Abdominal Exam GI & Abdominal Exam: Soft, Tenderness (joe-incisional tenderness). absent: Distended, Firm, Guarding, Rigid - Extremities Exam Extremities Exam: absent: Calf Tenderness - Neurological Exam Neurological Exam: Alert, Awake, Oriented x3 - Psychiatric Exam Psychiatric exam: Normal Affect - Skin Skin Exam: Intact, Warm Assessment and Plan - Assessment and Plan (Free Text) Assessment: 77F ex-lap, extensive lysis of adhesions, small bowel resection POD#1 Plan: - Keep NPO - consider de-escalation off of ABx - monitor bowel function - pain control PRN - OOB and ambulate - aggressive Incentive Spirometer use - discussed w/ Dr. Parry Surgical Attending PGY2 <Tod Parry - Last Filed: 08/22/18 07:52> Objective - Vital Signs/Intake and Output Vital Signs (last 24 hours): Temp Pulse Resp BP Pulse Ox 98.8 F 93 H 18 156/84 H 95 08/21/18 23:43 08/21/18 23:43 08/21/18 23:43 08/21/18 23:43 08/21/18 23:43 Intake and Output: 08/22/18 08/22/18 06:59 18:59 Intake Total 1450 Balance 1450 - Medications Medications: Current Medications Acetaminophen (Tylenol 325mg Tab) 650 mg PO DAILY PRN PRN Reason: Arthritis Alendronate Sodium (Fosamax) 70 mg PO QWK [facility] Alprazolam (Xanax) 0.5 mg PO DAILY PRN PRN Reason: Anxiety Last Admin: 08/21/18 16:03 Dose: 0.5 mg Atorvastatin Calcium (Lipitor) 20 mg PO DAILY [facility] Last Admin: 08/21/18 09:11 Dose: 20 mg Enoxaparin Sodium (Lovenox) 40 mg SC DAILY [facility]; Protocol Last Admin: 08/21/18 09:11 Dose: 40 mg Ergocalciferol (Drisdol 50,000 Intl Units Cap) 1 cap PO QWK [facility] Hydromorphone HCl (Dilaudid) 1 mg IVP Q4 PRN PRN Reason: Pain, severe (8-10) Last Admin: 08/21/18 09:49 Dose: 1 mg Metronidazole (Flagyl 500mg/100ml Ns) 100 mls @ 100 mls/hr IVPB Q8 [facility]; Protocol Last Admin: 08/22/18 01:10 Dose: 100 mls/hr Piperacillin Sod/Tazobactam (Sod 3.375 gm/ Sodium Chloride) 100 mls @ 100 mls/hr IVPB Q8 [facility]; Protocol Last Admin: 08/22/18 00:10 Dose: 100 mls/hr Potassium Chloride/Dextrose/Sod Cl (Potassium Chl 20 Meq In D5-1/2ns) 1,000 mls @ 100 mls/hr IV .Q10H [facility] Losartan Potassium (Cozaar) 25 mg PO DAILY [facility] Last Admin: 08/21/18 09:09 Dose: 25 mg Nrmql-3-Hihq Ethyl Esters (Lovaza) 2 gm PO BID [facility] Last Admin: 08/21/18 16:08 Dose: Not Given Pantoprazole Sodium (Protonix Ec Tab) 40 mg PO DAILY [facility] Last Admin: 08/21/18 09:11 Dose: 40 mg - Labs Labs: 08/21/18 06:35 08/21/18 06:35 PT 12.7 Seconds (9.8-13.1) 08/20/18 06:00 INR 1.1 08/20/18 06:00 APTT 30.7 Seconds (25.6-37.1) 08/20/18 06:00 Assessment and Plan - Assessment and Plan (Free Text) Assessment: Steadily improving POD#2 s/p enterectomy. Continue maintenance IVF/double DVT prophylaxis/PUD prophylaxis d/c IV ABX Incentive spirometry/chest PT Abd binder when ambulating Daily abd wound dressing changes Monitor labs Keep NPO except meds with radu until pt has flatus or BM
[2018-08-21 08:52] LABS: ANISOCYTOSIS SLIGHT; BANDS 1 % (0-2); LYMPHOCYTE 12 % (20-50); MONOCYTE 8 % (0-10); NEUTROPHIL 79 % (42-75); PLATELET ESTIMATE NORMAL (NORMAL); TOTAL CELLS COUNTED 100
[2018-08-21 08:53] LABS: HYPOCHROMIC SLIGHT; MICROCYTOSIS SLIGHT
--- NOTE | 2018-08-21 09:03 | CARD ---
APPROVED REPORT Date of service: 08/20/2018 EKG Measurement Heart [id number] <Conclusion> Normal sinus rhythm Possible Inferior infarct, age undetermined Abnormal ECG
[2018-08-21] MEDS: Pantoprazole 40 mg EC Tab PO SCH (09:11)
[2018-08-21] MEDS: Enoxaparin 40 mg Syringe SC SCH (09:11)
[2018-08-21] MEDS: Omega-3-Acid Ethyl Esters 1 GM Cap PO SCH ×2 (09:11→16:08)
[2018-08-21] MEDS: Potassium Ch 20mEq in D5-1/2NS 1,000 ML IV SCH ×2 (11:08→16:29)
--- NOTE | 2018-08-21 17:39 | CP.PCM.PN ---
Subjective - Date & Time of Evaluation Date of Evaluation: 08/21/18 Time of Evaluation: 09:00 - Subjective Subjective: patient seen and examined at bedside. Interim events noted complains of abdominal pain that is controlled. +BM. discussed with family at bedside. Patient currently doing physical therapy denies cp/sob/fever/chills. available diagnostic data reviewed Review of Systems All systems: reviewed and no additional remarkable complaints except mentioned above Objective Vital Signs Stable - Constitutional Appears: Non-toxic, No Acute Distress Head Exam: NORMAL INSPECTION Eye Exam: Normal appearance Respiratory Exam: NORMAL BREATHING PATTERN Cardiovascular Exam: +S1, +S2 GI & Abdominal Exam: Soft, ttp Neurological Exam: Alert, Awake Psychiatric exam: Normal Affect, Normal Mood Skin Exam: Normal Color, Warm Assessment and Plan monitor vitals monitor labs Cont meds Cont tx consultants appreciated input OOB IS complete abx x 7 days, on day 5 rest of plan as ordered Objective - Vital Signs/Intake and Output Vital Signs (last 24 hours): Temp Pulse Resp BP Pulse Ox 99.1 F 91 H 20 154/77 H 92 L 08/21/18 16:19 08/21/18 16:19 08/21/18 16:19 08/21/18 16:19 08/21/18 16:19 Intake and Output: 08/21/18 08/21/18 06:59 18:59 Output Total 750 Balance -750 - Medications Medications: Current Medications Acetaminophen (Tylenol 325mg Tab) 650 mg PO DAILY PRN PRN Reason: Arthritis Alendronate Sodium (Fosamax) 70 mg PO QWK [facility] Alprazolam (Xanax) 0.5 mg PO DAILY PRN PRN Reason: Anxiety Last Admin: 08/21/18 16:03 Dose: 0.5 mg Atorvastatin Calcium (Lipitor) 20 mg PO DAILY [facility] Last Admin: 08/21/18 09:11 Dose: 20 mg Enoxaparin Sodium (Lovenox) 40 mg SC DAILY [facility]; Protocol Last Admin: 08/21/18 09:11 Dose: 40 mg Ergocalciferol (Drisdol 50,000 Intl Units Cap) 1 cap PO QWK [facility] Hydromorphone HCl (Dilaudid) 1 mg IVP Q4 PRN PRN Reason: Pain, severe (8-10) Last Admin: 08/21/18 09:49 Dose: 1 mg Metronidazole (Flagyl 500mg/100ml Ns) 100 mls @ 100 mls/hr IVPB Q8 [facility]; Protocol Last Admin: 08/21/18 16:03 Dose: 100 mls/hr Piperacillin Sod/Tazobactam (Sod 3.375 gm/ Sodium Chloride) 100 mls @ 100 mls/hr IVPB Q8 [facility]; Protocol Last Admin: 08/21/18 16:03 Dose: 100 mls/hr Lactated Ringer's (Lactated Ringer's) 1,000 mls @ 115 mls/hr IV .Q8H42M [facility] Last Admin: 08/21/18 01:55 Dose: Not Given Potassium Chloride/Dextrose/Sod Cl (Potassium Chl 20 Meq In D5-1/2ns) 1,000 mls @ 125 mls/hr IV .Q8H [facility] Last Admin: 08/21/18 16:29 Dose: Not Given Losartan Potassium (Cozaar) 25 mg PO DAILY [facility] Last Admin: 08/21/18 09:09 Dose: 25 mg Vkmos-4-Fstv Ethyl Esters (Lovaza) 2 gm PO BID [facility] Last Admin: 08/21/18 16:08 Dose: Not Given Pantoprazole Sodium (Protonix Ec Tab) 40 mg PO DAILY [facility] Last Admin: 08/21/18 09:11 Dose: 40 mg - Labs Labs: 08/21/18 06:35 08/21/18 06:35 PT 12.7 Seconds (9.8-13.1) 08/20/18 06:00 INR 1.1 08/20/18 06:00 APTT 30.7 Seconds (25.6-37.1) 08/20/18 06:00 Assessment and Plan (1) Cholelithiasis Status: Acute (2) NHL (non-Hodgkin's lymphoma) Status: Acute (3) Colitis Status: Acute
[2018-08-22] MEDS: Piperacillin/Tazobact 3.375 GM in Sodium Chloride 0.9% 100 ML IVPB SCH ×3 (00:10→17:16)
[2018-08-22] MEDS: metroNIDAZOLE 500mg/100ml NS 100 ML IVPB SCH ×2 (01:10→10:18)
[2018-08-22] MEDS: Potassium Ch 20mEq in D5-1/2NS 1,000 ML IV SCH ×2 (01:22→05:21)
[2018-08-22] MEDS ORDERED: Potassium Ch 20mEq in D5-1/2NS 1,000 ML IV SCH (06:52)
[2018-08-22] MEDS: Omega-3-Acid Ethyl Esters 1 GM Cap PO SCH ×2 (09:02→17:36)
[2018-08-22] MEDS: Enoxaparin 40 mg Syringe SC SCH (09:03)
[2018-08-22] MEDS: Pantoprazole 40 mg EC Tab PO SCH (09:04)
--- NOTE | 2018-08-22 11:12 | CP.PCM.PN ---
Subjective - Date & Time of Evaluation Date of Evaluation: 08/22/18 Time of Evaluation: 06:20 - Subjective Subjective: Surgery Progress Note- Dr. Parry Pain improving. Abd dressing changed at bedside. new packing placed w/ dry dressing on top. Denies nausea, vomiting. + OOB into chair. Denies flatus or BM yesterday. Objective - Vital Signs/Intake and Output Vital Signs (last 24 hours): Temp Pulse Resp BP Pulse Ox 97.7 F 101 H 20 136/84 95 08/22/18 08:22 08/22/18 09:03 08/22/18 08:22 08/22/18 09:03 08/22/18 08:22 Intake and Output: 08/22/18 08/22/18 06:59 18:59 Intake Total 1450 Balance 1450 - Medications Medications: Current Medications Acetaminophen (Tylenol 325mg Tab) 650 mg PO DAILY PRN PRN Reason: Arthritis Alendronate Sodium (Fosamax) 70 mg PO QWK [facility] Alprazolam (Xanax) 0.5 mg PO DAILY PRN PRN Reason: Anxiety Last Admin: 08/21/18 16:03 Dose: 0.5 mg Atorvastatin Calcium (Lipitor) 20 mg PO DAILY [facility] Last Admin: 08/22/18 09:03 Dose: 20 mg Enoxaparin Sodium (Lovenox) 40 mg SC DAILY [facility]; Protocol Last Admin: 08/22/18 09:03 Dose: 40 mg Ergocalciferol (Drisdol 50,000 Intl Units Cap) 1 cap PO QWK [facility] Hydromorphone HCl (Dilaudid) 1 mg IVP Q4 PRN PRN Reason: Pain, severe (8-10) Last Admin: 08/21/18 09:49 Dose: 1 mg Metronidazole (Flagyl 500mg/100ml Ns) 100 mls @ 100 mls/hr IVPB Q8 [facility]; Protocol Last Admin: 08/22/18 10:18 Dose: 100 mls/hr Piperacillin Sod/Tazobactam (Sod 3.375 gm/ Sodium Chloride) 100 mls @ 100 mls/hr IVPB Q8 [facility]; Protocol Last Admin: 08/22/18 09:00 Dose: 100 mls/hr Dextrose/Lactated Ringer's (Dextrose 5%/Lactated Ringer's) 1,000 mls @ 80 mls/hr IV .[id number] [facility] Stop: 08/23/18 11:02 Losartan Potassium (Cozaar) 25 mg PO DAILY [facility] Last Admin: 08/22/18 09:03 Dose: 25 mg Bwtss-0-Srxr Ethyl Esters (Lovaza) 2 gm PO BID [facility] Last Admin: 08/22/18 09:02 Dose: 2 gm Pantoprazole Sodium (Protonix Ec Tab) 40 mg PO DAILY [facility] Last Admin: 08/22/18 09:04 Dose: 40 mg - Labs Labs: 08/21/18 06:35 08/21/18 06:35 PT 12.7 Seconds (9.8-13.1) 08/20/18 06:00 INR 1.1 08/20/18 06:00 APTT 30.7 Seconds (25.6-37.1) 08/20/18 06:00 - Constitutional Appears: Non-toxic, No Acute Distress - Head Exam Head Exam: ATRAUMATIC - Eye Exam Eye Exam: EOMI. absent: Scleral icterus - ENT Exam ENT Exam: Mucous Membranes Moist - Respiratory Exam Respiratory Exam: NORMAL BREATHING PATTERN. absent: Accessory Muscle Use, Respiratory Distress - Cardiovascular Exam Cardiovascular Exam: REGULAR RHYTHM. absent: Bradycardia, Tachycardia - GI/Abdominal Exam GI & Abdominal Exam: Soft, Tenderness (minimal tenderness around incision). absent: Distended, Firm, Guarding, Rigid Additional comments: Midline dressing packed and dry dressign placed ontop - Neurological Exam Neurological Exam: Alert, Awake, Oriented x3 - Psychiatric Exam Psychiatric exam: Normal Affect - Skin Skin Exam: Intact, Warm Assessment and Plan - Assessment and Plan (Free Text) Assessment: 77F ex-lap, extensive lysis of adhesions, small bowel resection POD#2 Plan: - Keep NPO, sips w/ meds until flatus or BM - consider de-escalation off of ABx - IVF - double DVT ppx - PUD ppx - aggressive IS and Chest PT - ABd binder when ambulating - d/w Dr. Parry Surgical attending PGY2
[2018-08-22] MEDS: Dextrose 5%/Lactated Ringer's 1,000 ML IV SCH (11:13)
--- NOTE | 2018-08-22 23:47 | OP ---
PROCEDURE DATE: 08/20/2018 A 77-year-old female. PREOPERATIVE DIAGNOSES: 1. Cholelithiasis. 2. Bowel perforation. POSTOPERATIVE DIAGNOSES: 1. Cholelithiasis. 2. Bowel perforation. SURGERIES: 1. Exploratory laparoscopy. 2. Exploratory laparotomy. 3. Extensive enterolysis. 4. Enterectomy with gzfh-px-syej stapled anastomosis. SURGEON: Tod Parry MD ANESTHESIA: General endotracheal. DESCRIPTION OF PROCEDURE: The patient was brought into the operating room and placed on the operating table in the supine position. After smooth induction of general endotracheal anesthesia, Venodyne boots were placed in both the legs, and prophylactic IV antibiotics were given. The entire abdomen was prepped and draped in the usual sterile fashion. The immediate infraumbilical area in the midline was infiltrated with local anesthetic and incised with a 15-blade in a vertical fashion. Dissection continued with sharp and blunt fashion down to the linea alba. This was incised with 15-blade, and an attempt to enter the peritoneal cavity was made. Despite meticulous dissection care, we inadvertently entered, perforated the small bowel necessitating the conversation to an open laparotomy. Using #15 blade, the suprainfraumbilical midline incision was performed after infiltrating the skin and subcutaneous with local anesthetic. The incision was brought down to the subcutaneous tissue using Bovie electrocautery, and the linea alba was incised. Multiple dense adhesions were encountered throughout the abdomen. It took approximately nao-alb-vmma hour to perform a sharp and blunt dissection in order to identify the anatomy after the enterotomy was closed with a continuous 2-0 Vicryl stitch. The dissection continued until the small and large bowel anatomy was identified. We then had lots of adhesions on inspection of the upper abdomen. The mesentery of the area where the bowel perforation was encountered appeared to have tears, and therefore a limited enterectomy was performed in the mid jejunum using MARBIN 75 blue staplers. The corresponding segment that was removed was approximately 15 cm. The corresponding mesentery was secured with the precise LigaSure. The specimen was removed from the operating filed and sent to Pathology, appropriately labeled for permanent section. A [id number]-vqhh stapled anastomosis between the two limbs of the mid jejunum was performed using a MARBIN 75 stapler, and an opening of the two loops was closed with TA 60 blue stapler, and the staple line was reinforced with interrupted 2-0 silk stitches. The mesenteric defect was closed with a continuous 2-0 Vicryl stitch. The abdomen was irrigated with copious amounts of warm normal saline. The abdomen closed with two layers using interrupted wpmnny-ns-[id number] #1 PDS stitches for the fascia and rain for the skin. The gap between the rain was approximately 1 inch apart with a 1-inch new gauze which was advanced all the way to the fascia. Sterile dressings were applied. At the end of the surgery; the count of instruments, gauze, and needles was correct x2. The patient tolerated the surgery well and was transferred in stable condition to the recovery room. Tod Parry MD
[2018-08-23] MEDS: Piperacillin/Tazobact 3.375 GM in Sodium Chloride 0.9% 100 ML IVPB SCH ×3 (00:15→16:57)
[2018-08-23] MEDS: Dextrose 5%/Lactated Ringer's 1,000 ML IV SCH (00:16)
--- NOTE | 2018-08-23 07:48 | CP.PCM.PN ---
Subjective - Date & Time of Evaluation Date of Evaluation: 08/23/18 Time of Evaluation: 07:45 - Subjective Subjective: General Surgery Note for Dr. Parry Patient seen and examined at bedside. No acute event overnight. Patient denies pain or nausea/vomiting. Patient is thirsty and requesting diet. Denies flatus or BM. Patient has been OOB into chair. Packing was changed this AM. Denies fever/chills. Patient is comfortable. Objective - Vital Signs/Intake and Output Vital Signs (last 24 hours): Temp Pulse Resp BP Pulse Ox 97.6 F 62 18 143/78 100 08/23/18 00:33 08/23/18 00:33 08/23/18 00:33 08/23/18 00:33 08/23/18 00:33 - Medications Medications: Current Medications Acetaminophen (Tylenol 325mg Tab) 650 mg PO DAILY PRN PRN Reason: Arthritis Alendronate Sodium (Fosamax) 70 mg PO QWK [facility] Alprazolam (Xanax) 0.5 mg PO DAILY PRN PRN Reason: Anxiety Last Admin: 08/22/18 17:19 Dose: 0.5 mg Atorvastatin Calcium (Lipitor) 20 mg PO DAILY [facility] Last Admin: 08/22/18 09:03 Dose: 20 mg Enoxaparin Sodium (Lovenox) 40 mg SC DAILY [facility]; Protocol Last Admin: 08/22/18 09:03 Dose: 40 mg Ergocalciferol (Drisdol 50,000 Intl Units Cap) 1 cap PO QWK [facility] Hydromorphone HCl (Dilaudid) 1 mg IVP Q4 PRN PRN Reason: Pain, severe (8-10) Last Admin: 08/21/18 09:49 Dose: 1 mg Piperacillin Sod/Tazobactam (Sod 3.375 gm/ Sodium Chloride) 100 mls @ 100 mls/hr IVPB Q8 [facility]; Protocol Last Admin: 08/23/18 00:15 Dose: 100 mls/hr Dextrose/Lactated Ringer's (Dextrose 5%/Lactated Ringer's) 1,000 mls @ 80 mls/hr IV .[id number] [facility] Stop: 08/23/18 11:02 Last Admin: 08/23/18 00:16 Dose: 80 mls/hr Losartan Potassium (Cozaar) 25 mg PO DAILY [facility] Last Admin: 08/22/18 09:03 Dose: 25 mg Ligqv-4-Pnsv Ethyl Esters (Lovaza) 2 gm PO BID [facility] Last Admin: 08/22/18 17:36 Dose: Not Given Pantoprazole Sodium (Protonix Ec Tab) 40 mg PO DAILY [facility] Last Admin: 08/22/18 09:04 Dose: 40 mg - Labs Labs: 08/21/18 06:35 08/21/18 06:35 PT 12.7 Seconds (9.8-13.1) 08/20/18 06:00 INR 1.1 08/20/18 06:00 APTT 30.7 Seconds (25.6-37.1) 08/20/18 06:00 - Additional Findings Additional findings: - Constitutional Appears: Non-toxic, No Acute Distress - Head Exam Head Exam: ATRAUMATIC - Eye Exam Eye Exam: EOMI. absent: Scleral icterus - ENT Exam ENT Exam: Mucous Membranes Moist - Respiratory Exam Respiratory Exam: NORMAL BREATHING PATTERN. absent: Accessory Muscle Use, Respiratory Distress - Cardiovascular Exam Cardiovascular Exam: REGULAR RHYTHM. absent: Bradycardia, Tachycardia - GI/Abdominal Exam GI & Abdominal Exam: Soft. absent: Distended, Firm, Guarding, Rigid, Tender ness. Additional comments: Midline incision with packing, dressing changed - clean dry and intact - Neurological Exam Neurological Exam: Alert, Awake, Oriented x3 - Psychiatric Exam Psychiatric exam: Normal Affect - Skin Skin Exam: Intact, Warm Assessment and Plan - Assessment and Plan (Free Text) Assessment: 77F ex-lap, extensive lysis of adhesions, small bowel resection POD#3 Plan: - Keep NPO, sips w/ meds until flatus or BM - Consider ABx de-escalation - IVF - Pain control - GI/DVT ppx - aggressive IS and Chest PT - Abdominal binder as needed or when ambulating - Further recommendations as per Dr. Sohan Long PGY2
[2018-08-23] MEDS: Omega-3-Acid Ethyl Esters 1 GM Cap PO SCH ×2 (08:51→16:58)
[2018-08-23] MEDS: Enoxaparin 40 mg Syringe SC SCH (08:52)
[2018-08-23] MEDS: Pantoprazole 40 mg EC Tab PO SCH (08:52)
[2018-08-23 10:45] LABS: BASO % 0.3 % (0.0-2.0); EOS # 0.1 K/uL (0.0-0.7); EOS % 1.2 % (0.0-4.0); HEMOGLOBIN 10.9 g/dL (12.0-16.0); LYMPH # 1.1 K/uL (1.0-4.3); LYMPH % 13.9 % (20.0-40.0); MEAN CELL VOLUME 77.4 fl (81.0-99.0); MEAN CORPUSCULAR HEMOGLOBIN 24.5 pg (27.0-31.0); MEAN CORPUSCULAR HGB CONC 31.7 g/dL (33.0-37.0); MEAN PLATELET VOLUME 8.5 fl (7.2-11.7); MONO # 0.8 K/uL (0.0-0.8); MONO % 9.5 % (0.0-10.0); NEUT % 75.1 % (50.0-75.0); RBC 4.43 Mil/uL (3.80-5.20); RED CELL DISTRIBUTION WIDTH 17.8 % (11.5-14.5)
[2018-08-23 11:03] LABS: ALB/GLOB RATIO 1.5 (1.0-2.1); ALBUMIN 3.8 g/dL (3.5-5.0); ALT/SGPT 22 U/L (9-52); AST/SGOT 25 U/L (14-36); BLOOD UREA NITROGEN 7 mg/dl (7-17); CALCIUM 9.6 mg/dL (8.4-10.2); GFR NON-AFRICAN AMERICAN > 60
[2018-08-24] MEDS: Piperacillin/Tazobact 3.375 GM in Sodium Chloride 0.9% 100 ML IVPB SCH ×3 (00:13→17:05)
[2018-08-24 07:16] LABS: BASO % 0.5 % (0.0-2.0); EOS # 0.1 K/uL (0.0-0.7); EOS % 1.9 % (0.0-4.0); HEMOGLOBIN 9.8 g/dL (12.0-16.0); LYMPH % 14.9 % (20.0-40.0); MEAN CELL VOLUME 77.8 fl (81.0-99.0); MEAN CORPUSCULAR HEMOGLOBIN 24.5 pg (27.0-31.0); MEAN CORPUSCULAR HGB CONC 31.5 g/dL (33.0-37.0); MEAN PLATELET VOLUME 8.6 fl (7.2-11.7); MONO # 0.6 K/uL (0.0-0.8); MONO % 8.8 % (0.0-10.0); NEUT # 5.2 K/uL (1.8-7.0); NEUT % 73.9 % (50.0-75.0); RBC 4.02 Mil/uL (3.80-5.20); RED CELL DISTRIBUTION WIDTH 17.7 % (11.5-14.5)
--- NOTE | 2018-08-24 07:36 | CP.PCM.PN ---
Subjective - Date & Time of Evaluation Date of Evaluation: 08/24/18 Time of Evaluation: 07:34 - Subjective Subjective: General Surgery Note for Dr. Parry Patient seen and examined at bedside. No acute event overnight. Patient denies pain fever/chills or nausea/vomiting. Patient admits to having large amounts of flatus but still denies any BM. Patient has been OOB into chair. No complaints at this time. Objective - Vital Signs/Intake and Output Vital Signs (last 24 hours): Temp Pulse Resp BP Pulse Ox 97.5 F L 98 H 18 142/83 97 08/23/18 23:35 08/23/18 23:35 08/23/18 23:35 08/23/18 23:35 08/23/18 23:35 - Medications Medications: Current Medications Acetaminophen (Tylenol 325mg Tab) 650 mg PO DAILY PRN PRN Reason: Arthritis Alendronate Sodium (Fosamax) 70 mg PO QWK [facility] Alprazolam (Xanax) 0.5 mg PO DAILY PRN PRN Reason: Anxiety Last Admin: 08/23/18 21:52 Dose: 0.5 mg Atorvastatin Calcium (Lipitor) 20 mg PO DAILY [facility] Last Admin: 08/23/18 08:51 Dose: 20 mg Enoxaparin Sodium (Lovenox) 40 mg SC DAILY [facility]; Protocol Last Admin: 08/23/18 08:52 Dose: 40 mg Ergocalciferol (Drisdol 50,000 Intl Units Cap) 1 cap PO QWK [facility] Hydromorphone HCl (Dilaudid) 1 mg IVP Q4 PRN PRN Reason: Pain, severe (8-10) Last Admin: 08/21/18 09:49 Dose: 1 mg Piperacillin Sod/Tazobactam (Sod 3.375 gm/ Sodium Chloride) 100 mls @ 100 mls/hr IVPB Q8 [facility]; Protocol Last Admin: 08/24/18 00:13 Dose: 100 mls/hr Losartan Potassium (Cozaar) 25 mg PO DAILY [facility] Last Admin: 08/23/18 08:50 Dose: 25 mg Zirwk-8-Kdkq Ethyl Esters (Lovaza) 2 gm PO BID [facility] Last Admin: 08/23/18 16:58 Dose: 2 gm Pantoprazole Sodium (Protonix Ec Tab) 40 mg PO DAILY [facility] Last Admin: 08/23/18 08:52 Dose: 40 mg - Labs Labs: 08/24/18 06:00 08/23/18 10:00 PT 12.7 Seconds (9.8-13.1) 08/20/18 06:00 INR 1.1 08/20/18 06:00 APTT 30.7 Seconds (25.6-37.1) 08/20/18 06:00 - Additional Findings Additional findings: - Constitutional Appears: Non-toxic, No Acute Distress - Head Exam Head Exam: ATRAUMATIC - Eye Exam Eye Exam: EOMI. absent: Scleral icterus - ENT Exam ENT Exam: Mucous Membranes Moist - Respiratory Exam Respiratory Exam: NORMAL BREATHING PATTERN. absent: Accessory Muscle Use, Respiratory Distress - Cardiovascular Exam Cardiovascular Exam: REGULAR RHYTHM. absent: Bradycardia, Tachycardia - GI/Abdominal Exam GI & Abdominal Exam: Soft. absent: Distended, Firm, Guarding, Rigid, Tenderness. Additional comments: Midline incision with packing, dressing changed - clean dry and intact - Neurological Exam Neurological Exam: Alert, Awake, Oriented x3 - Psychiatric Exam Psychiatric exam: Normal Affect - Skin Skin Exam: Intact, Warm Assessment and Plan - Assessment and Plan (Free Text) Assessment: 77F ex-lap, extensive lysis of adhesions, small bowel resection POD#4 Plan: - CLD, Will ADAT - Iv abx - IVF - Pain control - GI/DVT ppx - aggressive IS and Chest PT - Abdominal binder as needed or when ambulating - Further recommendations as per Dr. Sohan Long PGY2
[2018-08-24 07:41] LABS: ALB/GLOB RATIO 1.4 (1.0-2.1); ALBUMIN 3.3 g/dL (3.5-5.0); ALT/SGPT 25 U/L (9-52); AST/SGOT 18 U/L (14-36); BLOOD UREA NITROGEN 7 mg/dl (7-17); CALCIUM 9.6 mg/dL (8.4-10.2); GFR NON-AFRICAN AMERICAN > 60
[2018-08-24] MEDS: Omega-3-Acid Ethyl Esters 1 GM Cap PO SCH ×2 (08:56→17:06)
[2018-08-24] MEDS: Enoxaparin 40 mg Syringe SC SCH (08:56)
[2018-08-24] MEDS: Pantoprazole 40 mg EC Tab PO SCH (08:57)
--- NOTE | 2018-08-24 19:22 | CP.PCM.PN ---
Subjective - Date & Time of Evaluation Date of Evaluation: 08/22/18 Time of Evaluation: 11:00 - Subjective Subjective: Patient has no bowel sounds yet. Has no abd pain. No bm yet. Objective - Vital Signs/Intake and Output Vital Signs (last 24 hours): Temp Pulse Resp BP Pulse Ox 97.7 F 88 19 146/77 97 08/24/18 16:09 08/24/18 16:09 08/24/18 16:09 08/24/18 16:09 08/24/18 16:09 - Medications Medications: Current Medications Acetaminophen (Tylenol 325mg Tab) 650 mg PO DAILY PRN PRN Reason: Arthritis Alendronate Sodium (Fosamax) 70 mg PO QWK [facility] Alprazolam (Xanax) 0.5 mg PO DAILY PRN PRN Reason: Anxiety Last Admin: 08/23/18 21:52 Dose: 0.5 mg Atorvastatin Calcium (Lipitor) 20 mg PO DAILY [facility] Last Admin: 08/24/18 08:57 Dose: 20 mg Enoxaparin Sodium (Lovenox) 40 mg SC DAILY [facility]; Protocol Last Admin: 08/24/18 08:56 Dose: 40 mg Ergocalciferol (Drisdol 50,000 Intl Units Cap) 1 cap PO QWK [facility] Hydromorphone HCl (Dilaudid) 1 mg IVP Q4 PRN PRN Reason: Pain, severe (8-10) Last Admin: 08/21/18 09:49 Dose: 1 mg Piperacillin Sod/Tazobactam (Sod 3.375 gm/ Sodium Chloride) 100 mls @ 100 mls/hr IVPB Q8 [facility]; Protocol Last Admin: 08/24/18 17:05 Dose: 100 mls/hr Losartan Potassium (Cozaar) 25 mg PO DAILY [facility] Last Admin: 08/24/18 08:56 Dose: 25 mg Uwfew-5-Kbcv Ethyl Esters (Lovaza) 2 gm PO BID [facility] Last Admin: 08/24/18 17:06 Dose: 2 gm Pantoprazole Sodium (Protonix Ec Tab) 40 mg PO DAILY [facility] Last Admin: 08/24/18 08:57 Dose: 40 mg - Labs Labs: 08/24/18 06:00 08/24/18 06:00 PT 12.7 Seconds (9.8-13.1) 08/20/18 06:00 INR 1.1 08/20/18 06:00 APTT 30.7 Seconds (25.6-37.1) 08/20/18 06:00 - Head Exam Head Exam: NORMAL INSPECTION - Eye Exam Eye Exam: Normal appearance - Respiratory Exam Respiratory Exam: Clear to Ausculation Bilateral - Cardiovascular Exam Cardiovascular Exam: REGULAR RHYTHM - GI/Abdominal Exam Additional comments: no bowel sounds yet Assessment and Plan (1) Cholelithiasis Status: Acute (2) Cholecystitis Status: Acute (3) Gastritis Status: Acute (4) NHL (non-Hodgkin's lymphoma) Status: Acute (5) Hypertension Status: Acute (6) Hyperlipidemia Status: Acute - Assessment and Plan (Free Text) Plan: Cont meds Cont tx Cont PT reglan keep NPO for now.
[2018-08-25] MEDS: Piperacillin/Tazobact 3.375 GM in Sodium Chloride 0.9% 100 ML IVPB SCH ×2 (00:38→08:23)
--- NOTE | 2018-08-25 01:04 | CP.PCM.PN ---
Subjective - Date & Time of Evaluation Date of Evaluation: 08/23/18 Time of Evaluation: 09:00 - Subjective Subjective: Pt seen and assessed at bedside. OOB to bedside chair. No acute events reported overnight, pt has still not passed a BM. Remains NPO. Subjective Review of Systems: Reviewed and no additional remarkable complaints except occasional abdominal pain Objective Appears: Anxious, Non-toxic, No Acute Distress. Head Exam: NORMAL INSPECTION, normocephalic. Eye Exam: Normal eye inspection, EOMI, PERRLA. Respiratory Exam: NORMAL BREATHING PATTERN, breath sounds clear bilaterally. Cardiovascular Exam: +S1, +S2. RRR. GI & Abdominal Exam: Soft, mildly tender, non-distened. Neurological Exam: Alert and awake, oriented x3. Psychiatric exam: Normal mood. Calm and cooperative. Assessment/Impression/Plan: 1.) Cholelithasis -Pt c/o occasional abdominal pain. -Has yet to produce a BM, continue to monitor. -frequent ambulation and IS use encouraged. -Pt NPO, consider advancing to liquids soon. -All consults input appreciated. -IVF hydration. -Continue Zosyn. Objective - Vital Signs/Intake and Output Vital Signs (last 24 hours): Temp Pulse Resp BP Pulse Ox 98.4 F 94 H 20 157/89 H 95 08/24/18 23:43 08/24/18 23:43 08/24/18 23:43 08/24/18 23:43 08/24/18 23:43 - Medications Medications: Current Medications Acetaminophen (Tylenol 325mg Tab) 650 mg PO DAILY PRN PRN Reason: Arthritis Alendronate Sodium (Fosamax) 70 mg PO QWK [facility] Alprazolam (Xanax) 0.5 mg PO DAILY PRN PRN Reason: Anxiety Last Admin: 08/23/18 21:52 Dose: 0.5 mg Atorvastatin Calcium (Lipitor) 20 mg PO DAILY [facility] Last Admin: 08/24/18 08:57 Dose: 20 mg Enoxaparin Sodium (Lovenox) 40 mg SC DAILY [facility]; Protocol Last Admin: 08/24/18 08:56 Dose: 40 mg Ergocalciferol (Drisdol 50,000 Intl Units Cap) 1 cap PO QWK [facility] Hydromorphone HCl (Dilaudid) 1 mg IVP Q4 PRN PRN Reason: Pain, severe (8-10) Last Admin: 08/21/18 09:49 Dose: 1 mg Piperacillin Sod/Tazobactam (Sod 3.375 gm/ Sodium Chloride) 100 mls @ 100 mls/hr IVPB Q8 [facility]; Protocol Last Admin: 08/25/18 00:38 Dose: 100 mls/hr Losartan Potassium (Cozaar) 25 mg PO DAILY [facility] Last Admin: 08/24/18 08:56 Dose: 25 mg Amlbf-7-Huwq Ethyl Esters (Lovaza) 2 gm PO BID [facility] Last Admin: 08/24/18 17:06 Dose: 2 gm Pantoprazole Sodium (Protonix Ec Tab) 40 mg PO DAILY [facility] Last Admin: 08/24/18 08:57 Dose: 40 mg - Labs Labs: 08/24/18 06:00 08/24/18 06:00 PT 12.7 Seconds (9.8-13.1) 08/20/18 06:00 INR 1.1 08/20/18 06:00 APTT 30.7 Seconds (25.6-37.1) 08/20/18 06:00 Assessment and Plan (1) Cholecystitis Status: Acute (2) Cholelithiasis Status: Acute
--- NOTE | 2018-08-25 01:06 | CP.PCM.PN ---
Subjective - Date & Time of Evaluation Date of Evaluation: 08/24/18 Time of Evaluation: 11:00 - Subjective Subjective: Pt seen and assessed at bedside. Pt reports passing flatus, and had one large, liquid BM this morning. Will advance diet to liquids this AM. Subjective Review of Systems: Reviewed and no additional remarkable complaints except occasional abdominal pain and 1 diarrheal episode. Objective Appears: Anxious, Non-toxic, No Acute Distress. Head Exam: NORMAL INSPECTION, normocephalic. Eye Exam: Normal eye inspection, EOMI, PERRLA. Respiratory Exam: NORMAL BREATHING PATTERN, breath sounds clear bilaterally. Cardiovascular Exam: +S1, +S2. RRR. GI & Abdominal Exam: Soft, mildly tender, non-distened. Neurological Exam: Alert and awake, oriented x3. Psychiatric exam: Normal mood. Calm and cooperative. Assessment/Impression/Plan: 1.) Cholelithasis -Dilaudid PRN for pain. -Produced 1 liquid BM this morning as per pt. Reports passing flatus. -frequent ambulation and IS use encouraged. -Diet advanced to liquids. Consider use of anti-emetics if not well tolerated. -Monitor potassium in the AM, replenish accordingly. -All consults input appreciated. -IVF hydration. -Continue Zosyn antibiotics. Objective - Vital Signs/Intake and Output Vital Signs (last 24 hours): Temp Pulse Resp BP Pulse Ox 98.4 F 94 H 20 157/89 H 95 08/24/18 23:43 08/24/18 23:43 08/24/18 23:43 08/24/18 23:43 08/24/18 23:43 - Medications Medications: Current Medications Acetaminophen (Tylenol 325mg Tab) 650 mg PO DAILY PRN PRN Reason: Arthritis Alendronate Sodium (Fosamax) 70 mg PO QWK [facility] Alprazolam (Xanax) 0.5 mg PO DAILY PRN PRN Reason: Anxiety Last Admin: 08/23/18 21:52 Dose: 0.5 mg Atorvastatin Calcium (Lipitor) 20 mg PO DAILY [facility] Last Admin: 08/24/18 08:57 Dose: 20 mg Enoxaparin Sodium (Lovenox) 40 mg SC DAILY [facility]; Protocol Last Admin: 08/24/18 08:56 Dose: 40 mg Ergocalciferol (Drisdol 50,000 Intl Units Cap) 1 cap PO QWK [facility] Hydromorphone HCl (Dilaudid) 1 mg IVP Q4 PRN PRN Reason: Pain, severe (8-10) Last Admin: 08/21/18 09:49 Dose: 1 mg Piperacillin Sod/Tazobactam (Sod 3.375 gm/ Sodium Chloride) 100 mls @ 100 mls/hr IVPB Q8 [facility]; Protocol Last Admin: 08/25/18 00:38 Dose: 100 mls/hr Losartan Potassium (Cozaar) 25 mg PO DAILY [facility] Last Admin: 08/24/18 08:56 Dose: 25 mg Iliam-2-Zdqi Ethyl Esters (Lovaza) 2 gm PO BID [facility] Last Admin: 08/24/18 17:06 Dose: 2 gm Pantoprazole Sodium (Protonix Ec Tab) 40 mg PO DAILY [facility] Last Admin: 08/24/18 08:57 Dose: 40 mg - Labs Labs: 08/24/18 06:00 08/24/18 06:00 PT 12.7 Seconds (9.8-13.1) 08/20/18 06:00 INR 1.1 08/20/18 06:00 APTT 30.7 Seconds (25.6-37.1) 08/20/18 06:00 Assessment and Plan (1) Cholecystitis Status: Acute (2) Cholelithiasis Status: Acute
[2018-08-25 07:06] LABS: BASO % 0.3 % (0.0-2.0); EOS # 0.1 K/uL (0.0-0.7); EOS % 2.5 % (0.0-4.0); HEMOGLOBIN 9.7 g/dL (12.0-16.0); LYMPH # 0.9 K/uL (1.0-4.3); LYMPH % 16.5 % (20.0-40.0); MEAN CELL VOLUME 76.5 fl (81.0-99.0); MEAN CORPUSCULAR HEMOGLOBIN 25.1 pg (27.0-31.0); MEAN CORPUSCULAR HGB CONC 32.8 g/dL (33.0-37.0); MEAN PLATELET VOLUME 8.5 fl (7.2-11.7); MONO # 0.5 K/uL (0.0-0.8); MONO % 8.4 % (0.0-10.0); NEUT # 4.1 K/uL (1.8-7.0); NEUT % 72.3 % (50.0-75.0); NRBC % 0.1 % (0.0-0.0); RBC 3.86 Mil/uL (3.80-5.20); RED CELL DISTRIBUTION WIDTH 18.2 % (11.5-14.5); WHITE BLOOD COUNT 5.7 K/uL (4.8-10.8)
[2018-08-25 07:20] LABS: ALB/GLOB RATIO 1.4 (1.0-2.1); ALBUMIN 3.2 g/dL (3.5-5.0); ALT/SGPT 22 U/L (9-52); AST/SGOT 19 U/L (14-36); BLOOD UREA NITROGEN 6 mg/dl (7-17); CALCIUM 9.7 mg/dL (8.4-10.2); GFR NON-AFRICAN AMERICAN > 60
--- NOTE | 2018-08-25 08:00 | CP.PCM.PN ---
Subjective - Date & Time of Evaluation Date of Evaluation: 08/25/18 Time of Evaluation: 06:59 - Subjective Subjective: General surgery progress note for Dr. Jose Carbajal, PGY-2 Pt seen/examined at bedside Pt resting comfortably in bed. Denies N & V, F & C, CP, SOB, abdominal pain. Is OOBTC, ambulating, tolerating clears. Having BMs & Flatus. Objective - Vital Signs/Intake and Output Vital Signs (last 24 hours): Temp Pulse Resp BP Pulse Ox 98.4 F 94 H 20 157/89 H 95 08/24/18 23:43 08/24/18 23:43 08/24/18 23:43 08/24/18 23:43 08/24/18 23:43 - Medications Medications: Current Medications Acetaminophen (Tylenol 325mg Tab) 650 mg PO DAILY PRN PRN Reason: Arthritis Alendronate Sodium (Fosamax) 70 mg PO QWK [facility] Alprazolam (Xanax) 0.5 mg PO DAILY PRN PRN Reason: Anxiety Last Admin: 08/23/18 21:52 Dose: 0.5 mg Atorvastatin Calcium (Lipitor) 20 mg PO DAILY [facility] Last Admin: 08/24/18 08:57 Dose: 20 mg Enoxaparin Sodium (Lovenox) 40 mg SC DAILY [facility]; Protocol Last Admin: 08/24/18 08:56 Dose: 40 mg Ergocalciferol (Drisdol 50,000 Intl Units Cap) 1 cap PO QWK [facility] Hydromorphone HCl (Dilaudid) 1 mg IVP Q4 PRN PRN Reason: Pain, severe (8-10) Last Admin: 08/21/18 09:49 Dose: 1 mg Piperacillin Sod/Tazobactam (Sod 3.375 gm/ Sodium Chloride) 100 mls @ 100 mls/hr IVPB Q8 [facility]; Protocol Last Admin: 08/25/18 00:38 Dose: 100 mls/hr Losartan Potassium (Cozaar) 25 mg PO DAILY [facility] Last Admin: 08/24/18 08:56 Dose: 25 mg Qfezx-9-Mpzt Ethyl Esters (Lovaza) 2 gm PO BID [facility] Last Admin: 08/24/18 17:06 Dose: 2 gm Pantoprazole Sodium (Protonix Ec Tab) 40 mg PO DAILY [facility] Last Admin: 08/24/18 08:57 Dose: 40 mg - Labs Labs: 08/25/18 06:40 08/25/18 06:40 PT 12.7 Seconds (9.8-13.1) 08/20/18 06:00 INR 1.1 08/20/18 06:00 APTT 30.7 Seconds (25.6-37.1) 08/20/18 06:00 - Constitutional Appears: Non-toxic, No Acute Distress - Head Exam Head Exam: ATRAUMATIC, NORMAL INSPECTION, NORMOCEPHALIC - Eye Exam Eye Exam: EOMI, Normal appearance - ENT Exam ENT Exam: Mucous Membranes Moist, Normal Exam - Neck Exam Neck Exam: Full ROM - Respiratory Exam Respiratory Exam: NORMAL BREATHING PATTERN - GI/Abdominal Exam GI & Abdominal Exam: Soft. absent: Distended, Firm, Guarding, Rigid, Tender ness, Hernia, Rebound Additional comments: Midline incision with rain and packing in place, non tender, minimal serous drainage from incision - Extremities Exam Extremities Exam: Normal Inspection - Neurological Exam Neurological Exam: Alert, Awake, CN II-XII Intact, Oriented x3 - Psychiatric Exam Psychiatric exam: Normal Affect, Normal Mood - Skin Skin Exam: Dry, Intact, Normal Color, Warm Assessment and Plan - Assessment and Plan (Free Text) Assessment: 77F ex-lap, extensive lysis of adhesions, small bowel resection POD#5- doing well Plan: Advanced to fulls, ok for soft food for lunch or dinner if tolerates fulls Pain control OOBTC Ambulate Encourage IS use Abdominal binder as needed Wound care Pt will need visiting nursing for wound care at home Pt cleared for d/c home from surgical stand point after visiting nursing set up DW Dr. Sohan Carbajal, PGY-2
[2018-08-25] MEDS: Omega-3-Acid Ethyl Esters 1 GM Cap PO SCH ×2 (08:22→17:32)
[2018-08-25] MEDS: Enoxaparin 40 mg Syringe SC SCH (08:22)
[2018-08-25] MEDS: Pantoprazole 40 mg EC Tab PO SCH (08:22)
[2018-08-25] MEDS ORDERED: Potassium Chloride 20 mEq ER Tab PO ONE (11:36)
--- NOTE | 2018-08-25 17:55 | CP.PCM.PN ---
Subjective - Date & Time of Evaluation Date of Evaluation: 08/25/18 Time of Evaluation: 10:00 - Subjective Subjective: patient seen and examined at bedside. Interim events noted abdominal pain controlled, worse with getting up from sitting/laying position. +BM. discussed with family at bedside. tolerating PO well denies cp/sob/fever/chills. available diagnostic data reviewed Review of Systems All systems: reviewed and no additional remarkable complaints except mentioned above Objective Vital Signs Stable - Constitutional Appears: Non-toxic, No Acute Distress Head Exam: NORMAL INSPECTION Eye Exam: Normal appearance Respiratory Exam: NORMAL BREATHING PATTERN Cardiovascular Exam: +S1, +S2 GI & Abdominal Exam: Soft, ttp Neurological Exam: Alert, Awake Psychiatric exam: Normal Affect, Normal Mood Skin Exam: Normal Color, Warm Assessment and Plan monitor vitals monitor labs Cont meds Cont tx consultants appreciated input advance diet as tolerated rest of plan as ordered Objective - Vital Signs/Intake and Output Vital Signs (last 24 hours): Temp Pulse Resp BP Pulse Ox 98.1 F 83 20 146/80 95 08/25/18 15:54 08/25/18 15:54 08/25/18 15:54 08/25/18 15:54 08/25/18 15:54 - Medications Medications: Current Medications Acetaminophen (Tylenol 325mg Tab) 650 mg PO DAILY PRN PRN Reason: Arthritis Alendronate Sodium (Fosamax) 70 mg PO QWK [facility] Alprazolam (Xanax) 0.5 mg PO DAILY PRN PRN Reason: Anxiety Last Admin: 08/23/18 21:52 Dose: 0.5 mg Atorvastatin Calcium (Lipitor) 20 mg PO DAILY [facility] Last Admin: 08/25/18 08:22 Dose: 20 mg Enoxaparin Sodium (Lovenox) 40 mg SC DAILY [facility]; Protocol Last Admin: 08/25/18 08:22 Dose: 40 mg Ergocalciferol (Drisdol 50,000 Intl Units Cap) 1 cap PO QWK [facility] Hydromorphone HCl (Dilaudid) 1 mg IVP Q4 PRN PRN Reason: Pain, severe (8-10) Last Admin: 08/21/18 09:49 Dose: 1 mg Losartan Potassium (Cozaar) 25 mg PO DAILY [facility] Last Admin: 08/25/18 08:22 Dose: 25 mg Qishm-7-Ybqm Ethyl Esters (Lovaza) 2 gm PO BID [facility] Last Admin: 08/25/18 17:32 Dose: 2 gm Pantoprazole Sodium (Protonix Ec Tab) 40 mg PO DAILY [facility] Last Admin: 08/25/18 08:22 Dose: 40 mg - Labs Labs: 08/25/18 06:40 08/25/18 06:40 PT 12.7 Seconds (9.8-13.1) 08/20/18 06:00 INR 1.1 08/20/18 06:00 APTT 30.7 Seconds (25.6-37.1) 08/20/18 06:00 Assessment and Plan (1) Cholelithiasis Status: Acute (2) NHL (non-Hodgkin's lymphoma) Status: Acute (3) Colitis Status: Acute
[2018-08-26 06:01] LABS: BASO % 0.5 % (0.0-2.0); EOS # 0.1 K/uL (0.0-0.7); EOS % 2.8 % (0.0-4.0); HEMOGLOBIN 9.3 g/dL (12.0-16.0); LYMPH # 0.9 K/uL (1.0-4.3); LYMPH % 20.4 % (20.0-40.0); MEAN CELL VOLUME 76.4 fl (81.0-99.0); MEAN CORPUSCULAR HEMOGLOBIN 25.1 pg (27.0-31.0); MEAN CORPUSCULAR HGB CONC 32.8 g/dL (33.0-37.0); MEAN PLATELET VOLUME 8.3 fl (7.2-11.7); MONO # 0.4 K/uL (0.0-0.8); NEUT # 3.1 K/uL (1.8-7.0); NEUT % 68.3 % (50.0-75.0); NRBC % 0.1 % (0.0-0.0); RBC 3.72 Mil/uL (3.80-5.20); RED CELL DISTRIBUTION WIDTH 17.6 % (11.5-14.5); WHITE BLOOD COUNT 4.5 K/uL (4.8-10.8)
[2018-08-26 06:17] LABS: ALB/GLOB RATIO 1.3 (1.0-2.1); ALBUMIN 3.1 g/dL (3.5-5.0); ALT/SGPT 26 U/L (9-52); AST/SGOT 22 U/L (14-36); BLOOD UREA NITROGEN 6 mg/dl (7-17); CALCIUM 9.6 mg/dL (8.4-10.2); GFR NON-AFRICAN AMERICAN > 60
--- NOTE | 2018-08-26 07:59 | CP.PCM.PN ---
Subjective - Date & Time of Evaluation Date of Evaluation: 08/26/18 Time of Evaluation: 07:57 - Subjective Subjective: Surgery Progress Note for Dr. Parry 77F seen and evaluated at bedside this morning. No acute events overnight. No complaints this morning. Dressing changed at bedside, no drainage or bleeding noted. Denies f/c, n/v/d, SOB, CP, or urinary symptoms. Objective - Vital Signs/Intake and Output Vital Signs (last 24 hours): Temp Pulse Resp BP Pulse Ox 97.8 F 79 18 151/85 H 98 08/25/18 23:41 08/25/18 23:41 08/25/18 23:41 08/25/18 23:41 08/25/18 23:41 - Medications Medications: Current Medications Acetaminophen (Tylenol 325mg Tab) 650 mg PO DAILY PRN PRN Reason: Arthritis Alendronate Sodium (Fosamax) 70 mg PO QWK [facility] Alprazolam (Xanax) 0.5 mg PO DAILY PRN PRN Reason: Anxiety Last Admin: 08/23/18 21:52 Dose: 0.5 mg Atorvastatin Calcium (Lipitor) 20 mg PO DAILY [facility] Last Admin: 08/25/18 08:22 Dose: 20 mg Enoxaparin Sodium (Lovenox) 40 mg SC DAILY [facility]; Protocol Last Admin: 08/25/18 08:22 Dose: 40 mg Ergocalciferol (Drisdol 50,000 Intl Units Cap) 1 cap PO QWK [facility] Hydromorphone HCl (Dilaudid) 1 mg IVP Q4 PRN PRN Reason: Pain, severe (8-10) Last Admin: 08/21/18 09:49 Dose: 1 mg Losartan Potassium (Cozaar) 25 mg PO DAILY [facility] Last Admin: 08/25/18 08:22 Dose: 25 mg Jmqka-9-Cniz Ethyl Esters (Lovaza) 2 gm PO BID [facility] Last Admin: 08/25/18 17:32 Dose: 2 gm Pantoprazole Sodium (Protonix Ec Tab) 40 mg PO DAILY [facility] Last Admin: 08/25/18 08:22 Dose: 40 mg - Labs Labs: 08/26/18 04:00 08/26/18 05:37 PT 12.7 Seconds (9.8-13.1) 08/20/18 06:00 INR 1.1 08/20/18 06:00 APTT 30.7 Seconds (25.6-37.1) 08/20/18 06:00 - Constitutional Appears: Well, Non-toxic, No Acute Distress - Head Exam Head Exam: ATRAUMATIC, NORMAL INSPECTION, NORMOCEPHALIC - Eye Exam Eye Exam: EOMI - ENT Exam ENT Exam: Mucous Membranes Moist - Respiratory Exam Respiratory Exam: NORMAL BREATHING PATTERN. absent: Wheezes, Respiratory Distress - GI/Abdominal Exam GI & Abdominal Exam: Soft, Normal Bowel Sounds. absent: Distended, Tenderness Additional comments: midline surgical incision packing changed and dressing applied c/d/i, rain noted - Neurological Exam Neurological Exam: Alert, Awake, Oriented x3 - Psychiatric Exam Psychiatric exam: Normal Affect, Normal Mood - Skin Skin Exam: Dry, Intact, Normal Color, Warm Assessment and Plan - Assessment and Plan (Free Text) Assessment: 77F s/p exploratory laparotomy w/ lysis of adhesions and small bowel resection POD6 Plan: ADAT Monitor diet tolerance Daily dressing changes - pack with 1/2-1 inch packing up to fascia then dress w/ 4x4 gauze and tape F/u with social work regarding home health services D/w Dr. Sohan Medina PGY1
[2018-08-26] MEDS ORDERED: Oxycodone/Acetaminophen 5/325 mg Tab PO PRN (09:09)
[2018-08-26] MEDS: Omega-3-Acid Ethyl Esters 1 GM Cap PO SCH ×2 (09:37→16:40)
[2018-08-26] MEDS: Enoxaparin 40 mg Syringe SC SCH (09:38)
[2018-08-26] MEDS: Pantoprazole 40 mg EC Tab PO SCH (09:38)
[2018-08-27 07:45] VITALS: RESP 20
[2018-08-27] MEDS: Enoxaparin 40 mg Syringe SC SCH (09:03)
[2018-08-27] MEDS: Pantoprazole 40 mg EC Tab PO SCH (09:04)
[2018-08-27] MEDS: Omega-3-Acid Ethyl Esters 1 GM Cap PO SCH (09:04)
--- NOTE | 2018-08-27 11:14 | CP.PCM.PN ---
Subjective - Date & Time of Evaluation Date of Evaluation: 08/27/18 Time of Evaluation: 11:11 - Subjective Subjective: Surgery Progress Note for Dr. Parry 77F seen and evaluated at bedside this morning. No acute events overnight. No complaints this morning. Dressing changed at bedside, no drainage or bleeding noted. Denies f/c, n/v/d, SOB, CP, or urinary symptoms. Patient admits to passing gas and bowel movement. Objective - Vital Signs/Intake and Output Vital Signs (last 24 hours): Temp Pulse Resp BP Pulse Ox 97.8 F 84 20 129/80 95 08/27/18 07:44 08/27/18 09:04 08/27/18 07:44 08/27/18 09:04 08/27/18 07:44 - Medications Medications: Current Medications Acetaminophen (Tylenol 325mg Tab) 650 mg PO Q6 PRN PRN Reason: Pain, moderate (4-7) Alendronate Sodium (Fosamax) 70 mg PO QWK [facility] Alprazolam (Xanax) 0.5 mg PO DAILY PRN PRN Reason: Anxiety Last Admin: 08/26/18 21:30 Dose: 0.5 mg Atorvastatin Calcium (Lipitor) 20 mg PO DAILY [facility] Last Admin: 08/27/18 09:04 Dose: 20 mg Enoxaparin Sodium (Lovenox) 40 mg SC DAILY [facility]; Protocol Last Admin: 08/27/18 09:03 Dose: 40 mg Ergocalciferol (Drisdol 50,000 Intl Units Cap) 1 cap PO QWK [facility] Losartan Potassium (Cozaar) 25 mg PO DAILY [facility] Last Admin: 08/27/18 09:04 Dose: 25 mg Zotaf-0-Eczg Ethyl Esters (Lovaza) 2 gm PO BID [facility] Last Admin: 08/27/18 09:04 Dose: 2 gm Oxycodone/Acetaminophen (Percocet 5/325 Mg Tab) 1 tab PO Q6 PRN PRN Reason: Pain, severe (8-10) Stop: 08/29/18 09:10 Pantoprazole Sodium (Protonix Ec Tab) 40 mg PO DAILY [facility] Last Admin: 08/27/18 09:04 Dose: 40 mg - Labs Labs: 08/26/18 04:00 08/26/18 05:37 PT 12.7 Seconds (9.8-13.1) 05/01/19 06:00 INR 1.1 08/20/18 06:00 APTT 30.7 Seconds (25.6-37.1) 08/20/18 06:00 - Constitutional Appears: Well, Non-toxic - Head Exam Head Exam: ATRAUMATIC, NORMOCEPHALIC - Eye Exam Eye Exam: Normal appearance - ENT Exam ENT Exam: Mucous Membranes Moist - Respiratory Exam Respiratory Exam: Clear to Ausculation Bilateral, NORMAL BREATHING PATTERN - GI/Abdominal Exam Additional comments: midline surgical incision packing changed and dressing applied c/d/i, rain noted - Neurological Exam Neurological Exam: Alert, Awake - Psychiatric Exam Psychiatric exam: Normal Affect Assessment and Plan - Assessment and Plan (Free Text) Assessment: 77F s/p exploratory laparotomy w/ lysis of adhesions and small bowel resection POD8 Plan: Stable for discharge from surgical point of view. Daily dressing changes - pack with 1/2-1 inch packing up to fascia then dress w/ 4x4 gauze and tape F/u with social work regarding home health services D/w Dr. Parry
[2018-08-27 16:02] VITALS: BP 134/79; PULSE 83; TEMP 98.4; O2SAT 93
== END 2018-08-27 16:10 | disposition home health service (06) | DRG 424 ==
LOC: H.ER 03:29 → H.ERHOLD 07:58 → H.MEDSURG1 10:36
PROVIDERS: ADMIT Family Medicine; ATTEND Family Medicine
PROC: 0DNW0ZZ Release Peritoneum, Open Approach (ICD-10-PCS; 2018-08-20)
PROC: 0DQV0ZZ Repair Mesentery, Open Approach (ICD-10-PCS; 2018-08-20)
PROC: 0DBA0ZZ Excision of Jejunum, Open Approach (ICD-10-PCS; principal; 2018-08-20 10:30)
DX: K80.20 Calculus of gallbladder without cholecystitis without obstruction (principal); K56.51 Intestinal adhesions [bands], with partial obstruction; N39.0 Urinary tract infection, site not specified; C85.90 Non-Hodgkin lymphoma, unspecified, unspecified site; K91.71 Accidental puncture and laceration of a digestive system organ or structure during a digestive system procedure; K52.9 Noninfective gastroenteritis and colitis, unspecified; B96.20 Unspecified Escherichia coli [E. coli] as the cause of diseases classified elsewhere; E78.00 Pure hypercholesterolemia, unspecified; E78.5 Hyperlipidemia, unspecified; I10 Essential (primary) hypertension; K29.70 Gastritis, unspecified, without bleeding; N26.1 Atrophy of kidney (terminal); F41.9 Anxiety disorder, unspecified; Z91.013 Allergy to seafood; F32.9 Major depressive disorder, single episode, unspecified